=== PATIENT | male | born 1965 | race Caucasian/White ===

== ENCOUNTER 2019-01-15 09:11 | Outpatient (REF) | payer MEDICARE, MEDICAID, SELFPAY ==
[2019-01-15 11:59] LABS: HCT 39.3 % (40.0-50.0); HGB 13.5 g/dL (13.5-17.5); Mean Corp. HGB Concentration 34.4 g/dL (32.0-36.0); Mean Corpuscular Hemoglobin 30.5 pg (27.0-33.0); Mean Corpuscular Volume 88.7 fL (80-95); Mean Platelet Volume 9.2 fL (8.0-11.0); Platelet Count 484 x1000/uL (130-400); RBC 4.43 m/cumm (4.50-6.00); White Blood Cell Count 12.89 k/cumm (4.4-10.8)
[2019-01-15 12:36] LABS: ALT 36 U/L (12-78); AST 30 U/L (15-37); Albumin 3.5 g/dL (3.4-5.0); Alkaline Phosphatase 87 U/L (46-116); Anion Gap 12.8 mmol/L (3-11); BUN 7 mg/dL (7-18); Bilirubin, Total 0.3 mg/dL (0.2-1.0); CO2 24.2 mmol/L (21.0-32.0); CREATININE 0.87 mg/dL (0.70-1.30); Calcium 9.2 mg/dL (8.5-10.1); Chloride 102 mmol/L (98-107); Glucose 99 mg/dL (70-100); Potassium 4.3 mmol/L (3.5-5.1); Sodium 139 mmol/L (136-145); Total Protein 7.7 g/dL (6.4-8.2)
[2019-01-15 15:49] LABS: Calculated LDL 98; Cholesterol 151 mg/dL (50-200); GGT 27 U/L (15-85); HDL Cholesterol 39 mg/dL (40-60); Triglyceride 70 mg/dL (30-150)
== END 2019-01-15 09:31 ==
LOC: NCHCN 09:11
PROVIDERS: PCP Family Medicine; Visit Provider Family Medicine
DX: I10 Essential (primary) hypertension (principal); F17.200 Nicotine dependence, unspecified, uncomplicated; Z12.5 Encounter for screening for malignant neoplasm of prostate
CPT/HCPCS: 80053; 80061; 83721; 84153; 85027; 82977

== ENCOUNTER 2019-01-22 00:30 | Outpatient (CLI) | payer MEDICARE, MEDICAID, SELFPAY ==
--- NOTE | 2019-01-22 14:11 | DI.CT_ITS ---
SYMPTOMS/DIAGNOSIS: HEADACHES, R51, NEW ONSET AFTER TRAUMA HEAD CT: Images were performed before and after IV contrast. No intracranial hemorrhage, mass or infarct is seen. There are no abnormal enhancing lesions. The ventricles are normal in size. There is mild atrophy. There is mucus retention at the right maxillary sinus and mild mucus retention in the left maxillary sinus. The mastoid air cells appear clear. Orbits are unremarkable. IMPRESSION: Atrophy. No acute abnormality.
[2019-01-22] MEDS: Omnipaque 350 MG/ML 100 ML BTL IV (14:12)
== END 2019-01-22 00:50 ==
PROVIDERS: PCP Family Medicine; Visit Provider Family Medicine
DX: R51 Headache (principal); J32.8 Other chronic sinusitis
CPT/HCPCS: 70470; J3490

== ENCOUNTER 2019-09-10 11:00 | Outpatient (CLI) | payer MEDICARE, MEDICAID, SELFPAY ==
--- NOTE | 2019-09-10 11:15 | DI.RAD_ITS ---
EXAM: XR KNEE LT 3V AP,LAT,ELSIE INDICATION: f/u L knee OA. COMPARISON: No exams were available for comparison TECHNIQUE: 2D digital imaging was performed. FINDINGS: There are degenerative changes of the left knee characterized by marked narrowing of the medial femor al tibial joint space and mild to moderate narrowing of the lateral femoral tibial joint and the barrera llofemoral joint. There is periarticular spurring involving all 3 joint compartments. There is a sm all joint effusion. No acute fracture or dislocation is present. IMPRESSION: Osteoarthritis of the left knee.
== END 2019-09-10 11:20 ==
PROVIDERS: PCP Family Medicine; Referring Provider Family Medicine; Visit Provider Student in an Organized Health Care Education/Training Program
DX: M25.562 Pain in left knee (principal); M17.12 Unilateral primary osteoarthritis, left knee; M25.462 Effusion, left knee; F17.210 Nicotine dependence, cigarettes, uncomplicated
CPT/HCPCS: 20610; 73562; 99203; 99214; J1040

== ENCOUNTER 2020-06-05 10:04 | Outpatient (REF) | payer MEDICARE, MEDICAID, SELFPAY ==
[2020-06-05 21:19] LABS: HCT 43.5 % (40.0-50.0); HGB 14.8 g/dL (13.5-17.5); MCH 30.8 pg (27.0-33.0); MCV 90.6 fL (80-95); MPV 9.9 fL (8.0-11.0); Platelet Count 351 10^3/uL (130-400); RDW 14.3 % (11.8-14.1); RDW-SD 47.8 fL
[2020-06-05 21:41] LABS: ALT 25 U/L (16-63); AST 35 U/L (15-37); Albumin 3.9 g/dL (3.4-5.0); Alkaline Phosphatase 84 U/L (46-116); Anion Gap 12.4 mmol/L (3-11); BUN 8 mg/dL (7-18); Bilirubin, Total 0.4 mg/dL (0.2-1.0); CO2 23.6 mmol/L (21.0-32.0); CREATININE 0.76 mg/dL (0.70-1.30); Calcium 8.9 mg/dL (8.5-10.1); Calculated LDL 64 mg/dL (<100); Chloride 102 mmol/L (98-107); Cholesterol 146 mg/dL (<200); Glucose 125 mg/dL (74-106); HDL Cholesterol 74 mg/dL (40-60); Potassium 4.3 mmol/L (3.5-5.1); Sodium 138 mmol/L (136-145); Triglyceride 43 mg/dL (<150)
[2020-06-10 10:40] LABS: PSA, Screening 0.8 ng/mL (0-3.5)
== END 2020-06-05 10:24 ==
LOC: NCHCN 10:04
PROVIDERS: PCP Family Medicine; Visit Provider Family Medicine
DX: Z00.00 Encounter for general adult medical examination without abnormal findings (principal); I10 Essential (primary) hypertension; F10.10 Alcohol abuse, uncomplicated
CPT/HCPCS: 80053; 80061; 84153; 85027

== ENCOUNTER → 2021-01-16 10:40 | Outpatient (BNVA) | payer MEDICARE, MEDICAID, SELFPAY | PROVIDERS: PCP Family Medicine; Referring Provider Family Medicine; Visit Provider Student in an Organized Health Care Education/Training Program | DX: M17.12 Unilateral primary osteoarthritis, left knee (principal) | CPT/HCPCS: 20610; J1040 ==

== ENCOUNTER → 2021-07-06 08:00 | Outpatient (BNVA) | payer MEDICARE, MEDICAID, SELFPAY | PROVIDERS: PCP Family Medicine; Referring Provider Family Medicine; Visit Provider Student in an Organized Health Care Education/Training Program | DX: M17.12 Unilateral primary osteoarthritis, left knee (principal) | CPT/HCPCS: 99213 ==

== ENCOUNTER → 2021-09-09 07:57 | Outpatient (BNVA) | payer MEDICARE, MEDICAID, SELFPAY | PROVIDERS: PCP Family Medicine; Referring Provider Family Medicine | DX: M17.12 Unilateral primary osteoarthritis, left knee (principal) ==

== ENCOUNTER 2021-09-14 02:18 | Outpatient (CLI) | payer MEDICARE, MEDICAID, SELFPAY ==
[2021-09-14 11:50] LABS: Source Nasal/Nares
[2021-09-14 17:58] LABS: COVID-19 PCR Negative (Negative)
== END 2021-09-14 02:19 | disposition home or self-care (01) ==
LOC: LBO 02:18
PROVIDERS: PCP Family Medicine; Visit Provider Student in an Organized Health Care Education/Training Program
DX: Z20.822 Contact with and (suspected) exposure to COVID-19 (principal); Z01.818 Encounter for other preprocedural examination
CPT/HCPCS: 36415; 80048; 85027; 87635; U0005; 77073

== ENCOUNTER 2021-09-14 02:42 | Outpatient (CLI) | payer MEDICARE, MEDICAID, SELFPAY ==
[2021-09-14 08:34] LABS: HCT 44.6 % (40.0-50.0); HGB 15.2 g/dL (13.5-17.5); MCH 30.3 pg (27.0-33.0); MCHC 34.1 % (32.0-36.0); MCV 88.8 fL (80-95); MPV 8.3 fL (8.0-11.0); Platelet Count 381 10^3/uL (130-400); RBC 5.02 10^6/uL (4.36-5.78); RDW 12.6 % (11.8-14.1); RDW-SD 41.2 fL; WBC 10.49 10^3/uL (4.4-10.8)
[2021-09-14 09:58] LABS: Anion Gap 6.2 mmol/L (3-11); BUN 9 mg/dL (7-18); CO2 29.8 mmol/L (21.0-32.0); CREATININE 0.8 mg/dL (0.70-1.30); Calcium 9.1 mg/dL (8.5-10.1); Chloride 92 mmol/L (98-107); Glucose 132 mg/dL (74-106); Potassium 4.3 mmol/L (3.5-5.1); Sodium 128 mmol/L (136-145)
== END 2021-09-14 02:43 | disposition home or self-care (01) ==
LOC: LBO 02:43
PROVIDERS: PCP Family Medicine; Visit Provider Student in an Organized Health Care Education/Training Program
DX: M17.12 Unilateral primary osteoarthritis, left knee (principal); Z01.818 Encounter for other preprocedural examination
CPT/HCPCS: 36415; 80048; 85027

== ENCOUNTER 2021-09-14 08:44 | Outpatient (CLI) | payer MEDICARE, MEDICAID, SELFPAY ==
--- NOTE | 2021-09-14 15:45 | DI.RAD_ITS ---
Exam(s) XR STANDING ALIGNMENT EXAM: XR STANDING ALIGNMENT CLINICAL HISTORY: TKA PLANNING. TECHNIQUE: 2D digital imaging was performed. COMPARISON: CR RIGHT TIB/FIB from 09/25/2016 CR XR KNEE LT 3V AP,LAT,ELSIE from 09/10/2019 FINDINGS: There is advanced [id number] narrowing of the medial compartment of the left knee. Also mild media l subluxation of the femoral condyles relative to the tibial plateau by approximately 1 cm. Lesser d egenerative changes noted in the lateral compartment. In the opposite-right knee there is minimal na rrowing evident. Hips appear unremarkable as do the ankles although there appears to be hardware projected over the ri ght talus. In addition, there is a endovascular stent noted in the upper right calf. This is probab ly in the peroneal or origin of posterior tibial artery. IMPRESSION: Findings as above, most prominent being advanced narrowing of the medial compartment of the left knee DATA REPOSITORY: RADIATION DOSE DELIVERED:
== END 2021-09-14 08:45 | disposition home or self-care (01) ==
LOC: DIORS 08:45
PROVIDERS: PCP Family Medicine; Referring Provider Family Medicine; Visit Provider Physician Assistant
DX: M17.12 Unilateral primary osteoarthritis, left knee (principal)
CPT/HCPCS: 77073

== ENCOUNTER 2021-09-16 09:52 | Day surgery (SDC) | payer MEDICARE, MEDICAID, SELFPAY ==
[2021-09-16] VITALS (9 sets, daily range): BP systolic 119–148; BP diastolic 69–91; PULSE 59–79; RESP 10–18; TEMP 36.2–37.1; O2SAT 96–99; BMI 23.8
--- NOTE | 2021-09-16 08:09 | W.ANESPRE ---
General Info Date of Service Date Performed: 09/16/21 Height: 5 ft 3.5 in Weight: 62.142 kg Body Mass Index (BMI): 23.8 Surgical Procedure: Operation Date: 09/16/21 13:40 Proposed Procedure Side Surgeon p Knee Total Arthroplasty Cementless CR (potential PS) Left Jian Michael MD Meds Allergies and Home Medications Allergies Allergy/AdvReac Type Severity Reaction Status Date / Time codeine Allergy rash Unverified 09/16/21 10:02 Penicillins Allergy rash Unverified 09/16/21 10:02 Home Medication Medication Instructions Recorded ibuprofen 800 mg tablet 800 mg PO Q8H PRN PRN #30 tab 06/10/16 albuterol sulfate 90 mcg/actuation 2 puff INHALATION Q6H PRN 06/10/21 aerosol inhaler (Ventolin HFA) gabapentin 100 mg capsule 400 mg PO QID cap 06/10/21 lisinopril 20 1 tab PO DAILY 06/10/21 mg-hydrochlorothiazide 25 mg tablet oxycodone 10 mg tablet 10 mg PO QID PRN 06/10/21 Current Visit Medications: Current Medications Generic Name Dose Route Start Last Admin Trade Name Freq PRN Reason Stop Dose Admin Acetaminophen 1,000 mg 09/16/21 06:00 Acetaminophen 500 Mg Tab PO 09/16/21 16:00 PREOP CARLOS Celecoxib 400 mg 09/16/21 06:00 Celecoxib 200 Mg Cap PO 09/16/21 16:00 PREOP CARLOS Gabapentin 300 mg 09/16/21 06:00 Gabapentin 300 Mg Cap PO 09/16/21 16:00 PREOP CARLOS Tranexamic Acid 1,000 mg/ 60 mls @ 360 mls/hr 09/16/21 06:00 Sodium Chloride IVPB 09/16/21 16:00 PREOP CARLOS Tranexamic Acid 1,000 mg/ 60 mls @ 360 mls/hr 09/16/21 06:00 Sodium Chloride IVPB 09/16/21 16:00 DIRECTED CARLOS Ringer's Solution 1,000 mls @ 80 mls/hr 09/16/21 06:00 IV 10/15/21 23:59 INFUSION CARLOS Cefazolin Sodium/Dextrose 2 gm in 50 mls @ 100 mls/hr 09/16/21 06:00 Ancef Duplex IVPB 09/16/21 16:00 PREOP CARLSO IV Miscellaneous Supplies 1 each 09/16/21 06:00 Iv Access IV 10/15/21 23:59 DIRECTED CARLOS Sodium Chloride 0 ml 09/16/21 06:00 Normal Saline Flush 10 Ml Syr IV 10/15/21 23:59 PRN PRN Sodium Chloride 0 ml 09/16/21 06:00 Normal Saline 10 Ml Vial IJ 10/15/21 23:59 DIRECTED PRN Sterile Water 0 ml 09/16/21 06:00 Water,Injection,Sterile 10 Ml Vial IJ 10/15/21 23:59 DIRECTED PRN PFSH Active Problems Active Problems: Problem Status Onset Code Unilateral primary osteoarthritis, left knee M17.12 Aneurysm of lower extremity, right I72.4 Tobacco abuse Z72.0 Medical History Medical History HTN (hypertension) Surgical History Surgical History (Updated 09/16/21 @ 10:02 by July Motta) History of ankle surgery History of surgery Aneurysm removal from right leg History of surgery on right wrist Tobacco Smoking/Tobacco Use Status: Current every day Tobacco Type: cigarettes Alcohol Alcohol Intake: never Substance Use Substance use: Occasionally Substance use type: marijuana Vital Signs and Lab Results Vital Signs Most Recent Vital Signs in EMR: Temp Pulse Resp BP Pulse Ox 37 C 79 18 136/80 97 09/16/21 10:28 09/16/21 10:28 09/16/21 10:28 09/16/21 10:28 09/16/21 10:28 Lab Results Blood Type / Crossmatch: No Data to Display Complete Blood Count: White Blood Count 10.49 10^3/uL (4.4-10.8) 09/14/21 08:29 09/14/21 Red Blood Count 5.02 10^6/uL (4.36-5.78) 09/14/21 08:29 09/14/21 Hemoglobin 15.2 g/dL (13.5-17.5) 09/14/21 08:29 09/14/21 Hematocrit 44.6 % (40.0-50.0) 09/14/21 08:29 09/14/21 Platelet Count 381 10^3/uL (130-400) 09/14/21 08:29 09/14/21 Complete Metabolic Panel: Sodium Level 128 mmol/L (136-145) L 09/14/21 08:29 09/14/21 Potassium Level 4.3 mmol/L (3.5-5.1) 09/14/21 08:29 09/14/21 Chloride Level 92 mmol/L (98-107) L 09/14/21 08:29 09/14/21 Carbon Dioxide Level 29.8 mmol/L (21.0-32.0) 09/14/21 08:09/14/21 Blood Urea Nitrogen 9 mg/dL (7-18) 09/14/21 08:09/14/21 Creatinine 0.8 mg/dL (0.70-1.30) 09/14/21 08:09/14/21 Estimated GFR/1.73 m2 >= 60.00 (mL/min/1.73m2) 09/14/21 08:29 09/14/21 Calcium Level 9.1 mg/dL (8.5-10.1) 09/14/21 08:09/14/21 Glucose Level 132 mg/dL (74-106) H 09/14/21 08:29 09/14/21 Liver Function Panel: No Data to Display Coagulation Panel: No Data to Display Cardiac Panel: No Data to Display Arterial Blood Gas: No Data to Display Venous Blood Gas: No Data to Display Pancreas Panel: No Data to Display Thyroid Panel: No Data to Display Infectious Disease: Coronavirus (COVID-19)(PCR) Negative (Negative) 09/14/21 08:30 09/14/21 Coronavirus 2019 Source Nasal/Nares 09/14/21 08:30 09/14/21 Blood Cultures: No Data to Display Toxicology Panel: No Data to Display Anesthesia Assessment and Plan Anesthesia History Personal History: No History of Anesthesia Complications Family History: No Family History of Anesthesia Complications Exercise Tolerance Exercise Tolerance: Metabolic Equivalents>4 Cardiac & Pulmonary Exam Cardiac Exam: Normal S1/S2 Heart Sounds Pulmonary Exam: Clear Bilateral Breath Sounds Implantable Cardiac Device Does patient have a Pacemaker or an ICD?: No Airway Exam Known Difficult Airway: No Mallampati Class: 2 Mouth Opening: Normal (> 3cm) Thyromental Distance: Less than 3 cm Neck Range of Motion: Full ROM Neck Circumference: Normal Teeth Condition: Generalized Poor Dentition Airway Comments: many half missing and broken teeth. extremely poor dentition. ASA Classification ASA Score: ASA 2 Emergency Case?: No NPO Status NPO Status: NPO Clears >2 hours, Solids >8 hours Anesthesia Plan Resuscitation Status: Full Code Anesthesia Technique: Spinal Anesthesia Airway Planned: Natural Airway Pain Management: Surgeon and patient request nerve block Monitors Used: Standard Monitors Preoperative Comments:: 55 yo male for left TKA. Sig PMHx: HTN (lisinopril/HCTZ), smoker (everyday tobacco, occ cannabis), asthma (albuterol), s/p right leg pseudoaneurysm/AVM stent graft.
[2021-09-16] MEDS: Lactated Ringers 1,000 ML 80 ML IV (10:50)
[2021-09-16] MEDS: Gabapentin 300 MG CAP PO (10:55)
[2021-09-16] MEDS: Celecoxib 200 MG CAP 400 MG PO (10:56)
[2021-09-16] MEDS: Acetaminophen 500 MG TAB 1000 MG PO (10:56)
--- NOTE | 2021-09-16 11:27 | W.ANESNERVE ---
Nerve Block Single Injection Procedure Date and Time Date Performed: 09/16/21 Procedure Start: 11:15 Location Where Procedure Performed Procedure Location: Day Surgery Unit Reason Performed: Postoperative Analgesia Requesting Provider: Jian Michael Timeout Performed Timeout Performed: Yes Monitoring Used ECG, Blood Pressure and SpO2 Sterility Sterility: Hand Hygiene, Surgical Cap, Surgical Mask, Sterile Gloves and Chlorhexidine Sedation Given During Procedure Sedation Given (Indicate Dose Given): Versed IV Dose:: 2 mg Patient Mental Status Patient Mental Status: Awake Nerve Block 1st Nerve Block: Laterality: Left Block Type: Adductor Canal Needle / Catheter Used: 100mm SonoPlex II Local Anesthetic Bolus (Indicate Dose Given): Lidocaine used for local infiltration of skin, Injected in 3-5ml increments after negative blood aspiration and Bupivacaine 0.375% Dose:: 10 mL Additives (Indicate Dose Given): None Ultrasound: Sterile probe cover and gel used Ultrasound Image Saved?: Yes Nerve Stimulator: Not Used Paresthesia: None Procedure Tolerated: No Complications Procedure Outcome: Successful Performed By: Davie Villareal
[2021-09-16] MEDS: ceFAZolin 2 GM/50 ML BAG IVPB (12:30)
[2021-09-16] MEDS: Ketorolac 30 MG/ML VIAL (12:52)
[2021-09-16] MEDS: Bupivacaine 0.25% Pres-Free 30 ML VIAL (12:52)
[2021-09-16] MEDS: Normal Saline 20 ML VIAL (12:52)
--- NOTE | 2021-09-16 14:48 | W.ANESPOSTOP ---
Postoperative Evaluation Date, Time and Location Date Performed: 09/16/21 Time Performed: 14:48 Patient Location: PACU Vital Signs Most Recent Imported Vital Signs: Most Recent Vital Signs Temp Pulse Resp BP Pulse Ox 36.3 C L 59 L 10 L 141/79 H 99 09/16/21 14:43 09/16/21 14:43 09/16/21 14:43 09/16/21 14:43 09/16/21 14:43 Pain Score Most Recent Pain Score: Most Recent Pain Score Pain Level [Left Knee] 6 09/16/21 10:35 Pain Level 0 09/16/21 14:43 Assessment Mental Status: Awake (Alert & Oriented to Patient Baseline) Airway and Respiratory Function: Patent airway with normal (patient baseline) respiratory exam Cardiovascular Function: Hemodynamically Stable Hydration Status: Adequately Hydrated Nausea & Vomiting: No Nausea or Vomiting Pain: Pain is tolerable per patient Peripheral Nerve Block: Regional nerve block not resolved at time of post operative discharge
--- NOTE | 2021-09-16 16:08 | PT.INIE ---
Date of service: 09/16/21 Time of Service: 16:08 PT Notes Visit Reasons: LEFT TKA Physical Therapy Day Surgery Initial Evaluation Date: 10/14/2021 Referring Doctor: VINCE Huntley PT Orders: PT CONSULT: Status post Ortho surgery Precautions: WBAT on left LE with AD. Patient Profile/Admitting Diagnosis: Brett is a 55-year-old male with unilateral primary osteoarthritis of the left knee and is status post left total knee arthroplasty on postoperative day 0. PMHX: All Active Problems?(Updated 09/09/21 @ 08:53 by VINCE Huntley) Unilateral primary osteoarthritis, left knee (Acute) Aneurysm of lower extremity, right (Acute) Tobacco abuse (Acute) Medical History?(Updated 09/09/21 @ 08:53 by VINCE Huntley) HTN (hypertension) Surgical History? History of surgery Aneurysm removal from right leg Social History/Home Situation: Lives alone in a private home with one-step to enter without rails. Independent with all aspects of ADLs prior to surgery. Has a friend who lives close by who can help as needed. Equipment Owned/DME: [facility] Subjective: Agreeable to PT consult. Brett reports 5?6/10 pain in the left knee. Does report numbness in both feet. Denies headache, chest pain, and dizziness throughout session. States that his mom had machine is evaluating for him at home. Objective: General Observation: Supine in stretcher. TEDS on right leg. Derrick wraps to left LE. Cryo/Cuff on left knee. SPC on left LE. IV access in the right UE. Mental Status: Alert and oriented x4 Pain: 5?6/10 pain in the left knee ROM: Right Lower Extremity: Hip flexion WFL. Hip abduction WFL. Knee flexion WFL. Ankle dorsiflexion WFL. Ankle plantarflexion WFL. Left Lower Extremity: Hip flexion WFL. Hip abduction WFL. Knee flexion about 30 degrees to about 80 degrees. Knee extension -30 degrees ankle dorsiflexion WFL. Ankle plantarflexion WFL. Strength: Right Lower Extremity: Hip flexors 5/5. Hip abductors 5/5. Knee flexors 5/5. Knee extensors 5/5. Ankle dorsiflexors 5/5. Ankle plantarflexors 5/5. Left Lower Extremity:Hip flexors 5/5. Hip abductors 5/5. Knee flexors 3-/5. Knee extensors 3-/5. Ankle dorsiflexors 5/5. Ankle plantarflexors 5/5. Sensation: Complains of numbness in bilateral feet Bed Mobility/Transfers: Supine to sit standby assist Sit to stand standby assist Stand to sit standby assist Bed to chair contact-guard assist Gait: Instructed patient with level surface ambulation of about 150 feet using front wheeled walker with step through gait pattern with report of 5?6/10 pain on the left knee. Minimal cues given for limb advancement and foot placement as well as directional changes using walker. Patient was also instructed the use of bilateral axillary crutches for about 15 feet using three-point gait pattern. Balance: Static Sitting: Normal Dynamic Sitting: Normal Static Standing: Fair Dynamic Standing: Fair Special Tests: Mobility Limitations Standardized Measure [facility] AM-PAC 6 clicks Basic Mobility Inpatient Short Form: Raw Score: 21 CMS Score: 29% deficit Informed Consent Education: Patient instructed in purpose of PT consult. Education and training on initial set of exercises that can be done at home have been completed with patient. Assessment: Brett requires the use of bilateral axillary crutches for all mobility ADL performance in order to maximize independence and reduce fall risk. He will have assistance of a friend for anything that he needs as he recovers. Patient presents with clinical signs and symptoms consistent with current/admitting diagnoses that have resulted to mobility limitations, gait instability, generalized weakness, and impairment of motor control as demonstrated by the following impairment level findings: 1. Decreased strength to left knee major muscle groups 2. Impaired standing balance 3. Limitation of joint range of motion in left knee Impairments are contributing to the following functional limitations: 1. Inability to safely ambulate without assistive device 2. Increase completion time for mobility ADL performance 3. Increased fall risk Patient is assessed as a [id number] moderate complexity based on the following: History: 55-year-old malewith impairment level findings, functional limitations, and past medical history as indicated above Examination: Demonstrable impairment in strength, balance, and mobility level with underlying impairments and functional limitations as documented above Presentation: Evolving Decision Makin moderate complexity Goals: N/A. PT evaluation and 1-2 treatment sessions only for functional mobility training using recommended AD and for HEP instruction. Plan of Care/Treatment Plan: N/A. PT evaluation and 1-2 treatment session only for functional mobility training using recommended AD and for HEP instruction. DISCHARGE RECOMMENDATIONS: [] Home with no services [] [] Home with services [specify] [X] Home with outpatient PT. Home when medically cleared by orthopedic surgeon. Will benefit from outpatient PT services in order to facilitate return to independent community ambulation without an assistive device. [] SNF for continued rehabilitation [] [] [employer] [facility] [] [] SNF versus LTC based on ability to participate and progress [] TREATMENT CODE/TIME: 06351 x 20 minutes, 87265 x 17 minutes beginning at 16:08 PM. Thank you for the opportunity to participate in the care of this patient. Marifer Lindsay PT, DPT, CLT [facility] [place], [place]
[2021-09-16] MEDS: oxyCODONE 5 MG TAB 10 MG PO (16:18)
--- NOTE | 2021-09-16 19:29 | ROE_ITS ---
Date of service: 09/16/21 Time of Service: 14:05 Operative Note Operative Note DATE OF PROCEDURE: 09/16/21 PRE-OP DIAGNOSIS: Left Knee Osteoarthritis POST-OP DIAGNOSIS: same PROCEDURE: Left Cementless Total Knee Replacement SURGEON: Jian Michael DISTANCE LEARNING TECHNICIAN: Camden Gallardo Refer to Anesthesia Record ESTIMATED BLOOD LOSS: 200 PATHOLOGY: none sent TOURNIQUET TIME: 0 COMPLICATIONS: None Patient was transported to: PACU Patient's condition: stable Implants: 1. Depuy Attune Cementless Cruciate Retaining Femoral Component, Size 8 2. Depuy Attune Cementless Rotating Platform Tibial Component, Size 6 3. Depuy Attune 8x7mm CR/RP Poly 4. Depuy Attune Patellar Component, Size 38 Indications: I have seen Brett in clinic for symptoms of knee arthritis, confirmed with radiographic findings. Brett has exhausted nonoperative methods and was having significant limitations in daily function and desired better function and less pain. I discussed the technical details of a knee replacement. I explained the risks of the procedure to include, but not limited to, bleeding, infection, pain, stiffness, fracture, damage to nerves and vessels, damage to muscles and tendons, loosening, need for repeat procedure, blood clot and cardiopulmonary demise. Despite these risks, [NAME] elected to proceed. Findings: There was significant signs of arthritis throughout the knee with notable tibia varus. Procedure Description: Brett was greeted in the preoperative holding area where the correct side was identified and marked. The consent was reviewed with the patient and signed. The history and physical was updated. All questions were answered. Preoperative medications were administered: Acetaminophen 1000mg, Celebrex 400mg, and Gabapentin 300mg. An adductor canal block was then administered by the anesthesia team in the PACU. Brett was taken back to the operating room. A spinal anesthestic was then administered. The patient was placed into the supine position on the operating room table. A nonsterile tourniquet was placed high onto the leg but only used for cementing. Posts were placed for positioning during the procedure. All bony prominences were well padded. Prophylactic antibiotics in the form of Cefazolin were administered. 1g of Tranxemic Acid was given intravenously within 30 minutes of incision. The left leg was then prepped with Chloraprep and draped in a standard fashion with impervious stockinette. A second prep with Chloraprep was performed prior to application of Iodine impregnated skin protection. A timeout to confirm correct identity, side and site, procedure, allergies, anesthesia, and medical concerns was performed. With the knee in some flexion, a midline incision was made overlying the knee. Full thickness skin flaps were raised once the extensor mechanism was encountered. These were raised medially and laterally. Any bleeding was controlled with electrocautery. Once the extensor mechanism was fully exposed, a medial parapatellar arthrotomy was performed in a flexed position. All bleeding from the arthrotomy and the geniculate arteries was coagulated. A medial subperiosteal peel was performed with electrocautery to the midcoronal plane. Due to the significant varus deformity the entire medial tibial plateau was exposed. The fat pad was removed while keeping the patellar tendon protected. The anterior distal femur synovium was removed for later visualization. The ACL and PCL were resected and the anterior horn of the lateral meniscus was transected. The knee was then flexed with the patella everted. Large osteophytes from the tibia were removed. Large osteophytes from the femur were removed. Using a step drill, and based on preoperative templating, the femoral canal was entered. This was done with a step drill without any difficulty. The intramedullary distal femoral cut guide was inserted, set to a 5 degree valgus cut and 9mm cut thickness. The distal femoral cut guide was then held in position and pinned. With the soft tissues protected, the distal cut was performed. This was passed over a few times to ensure a planar cut. I then turned attention to the tibia. The extramedullary guide was placed onto the leg. The distal aspect was slid medial to adjust for position of center of ankle and stay in line with shaft of the tibia. Approximately 3-5 degrees of posterior slope was kept in the proximal cutting guide. The center of the guide was aligned with the PCL. The stylus was used to assess cut thickness. The medial side, most involved side, was set for a 2mm cut. This was then held in position and pinned into place with 2 additional pins and a cross pin for stability. The medial and lateral collateral ligaments were protected and the cut was performed. With this completed, it was assessed and noted to be of appropriate dimensions. The guide was removed. A spacer block was inserted and the knee was brought into extension. The 6mm spacer block provided full extension, without hyperextension and with stability of both the medial and lateral collateral ligaments was assessed. The pins from the femur and the tibia were then removed. The distal femur was then sized. The anterior stylus was placed onto the lateral ridge of the anterior femur. This indicated a size 8 femur. The external rotation of the guide was adjusted to 3 degrees to match the epicondylar axis, perpendicular to Debora?s line. The 4-in-1 cutting guide was the placed. The posterior medial femur cut was evaluated and appeared of good thickness. The spacer block was inserted underneath the cutting guide and stability was confirmed in 90 degrees of flexion. An cristina wing was used to confirm appropriate position of the anterior cut to avoid notching. This cutting guide was ensured to be flush on the cut surface and then pinned into place with headed pins. While protecting the soft tissues, quad tendon, and collateral ligaments, the anterior and posterior cuts were performed with a saw. The central two pins were removed and the posterior and anterior chamfers were cut next. The notch-cutting guide was placed. This was pinned to lateralize the femoral component as much as possible while keeping it flush on the cut surface. This was then pinned into position. A reciprocating saw was used to make the notch cut. A rasp smoothed the cut surfaces. The medial and lateral menisci were removed. A trial femoral component was then inserted, impacted down to the cut surfaces, and the lug holes were drilled. A provisional trial tibial component was placed and the knee was brought through range of motion. The polyethylene was trialed until there was good flexion and extension with excellent stability to the medial and lateral collaterals. The patella was tracking without thumbs. A size 7mm polyethylene component provided the best range of motion and stability with less than 2mm gapping with medial and lateral stress and full extension without significant hyperextension. The tibial cut surface was fully exposed. The tibia was then sized as a 6. The tibia had been previously marked during trialing to correspond to the center of the tibial component to help with rotation. The trial was aligned to this camden, approximately rotated to the medial 1/3rd of the tibial tubercle. The trial was pinned into place. The tibia was prepared with a reamer and a keel punch and lug holes. The knee was then brought into extension and the patella was measured as 25mm. Using the patellar clamp and cut guide, this was resected to a flat surface with at least 13mm of thickness remaining. The size 38 patella fit the best. This was oriented and then clamped into position. The lugs were drilled. The trial components were removed. The final components were opened on the back table. The periosteal and capsular tissues, especially posteriorly, around the knee were then systematically injected with a periarticular cocktail consisting of 50cc 0.25% Marcaine, 30mg Ketorolac, 20cc of Exparal and 50cc of injectable saline. The knee was thoroughly irrigated with a pulse lavage and dried. Irrisept was also used to irrigate the tissues. On the back table, with the implants opened, the cement was mixed. One batch of high viscosity cement was prepared with vacuum assistance. After the cement was ready a small amount was placed on the cut surface of the patella and the patellar button was clamped into position and held. While the cement was hardening, the cementless knee components were placed. Starting with the tibial component, the tibia was subluxed anteriorly and the lug holes of the component were lined up. The tibia was then impacted with an impactor and mallet until the tibial component was in contact with the tibia. The final polyethylene component was inserted. Then, the femoral component was inserted. The lug holes were aligned and the component was impacted into position. The knee was irrigated with Irrisept chlorhexadine solution. This was allowed to sit in the knee for 3 minutes. After the cement had finally cured, approximately 15min, the clamp was removed from the patella and the knee was taken through range of motion. The patella was tracking with a no-thumbs technique. The capsule was then reapproximated with a No. 1 Vicryl at multiple locations. The capsule was finally closed with a No. 2 Stratafix, barbed suture. The second dosing of 1g TXA was started. Deep tissues were then reapproximated with 0 Vicryl and 2-0 Vicryl. The skin was closed with a running 3-0 Monocryl in a subcuticular fashion. This was reinforced with skin glue. A Mepilex silver dressing was applied along with a zjmt-bm-vszom TOMMIE wrap. A CryoCuff was applied. Brett was transferred to the hospital bed without difficulty an suffering no apparent complication. Brett has a good prognosis. Physical therapy will start today and without restrictions, weight-bearing as tolerated. Aspirin 81mg BID will be used for DVT prophylaxis.
== END 2021-09-16 17:35 | disposition home or self-care (01) ==
PROVIDERS: PCP Family Medicine; Visit Provider Student in an Organized Health Care Education/Training Program
PROC: (CPT 27447; principal; 2021-09-16 13:30)
DX: M17.12 Unilateral primary osteoarthritis, left knee (principal); I10 Essential (primary) hypertension; Z72.0 Tobacco use
CPT/HCPCS: 27447; C1776; 76942; 97162; 97530; J0690; J1100; J1885; J2001; J2250; J2405; J2704

== ENCOUNTER 2021-10-02 08:35 | Outpatient (CLI) | payer MEDICARE, MEDICAID, SELFPAY ==
--- NOTE | 2021-10-02 08:15 | DI.RAD_ITS ---
Exam(s) XR STANDING ALIGNMENT EXAM: XR STANDING ALIGNMENT CLINICAL HISTORY: 1ST POST OP L TKA. TECHNIQUE: 2D digital imaging was performed. COMPARISON: CR XR STANDING ALIGNMENT from 09/14/2021 FINDINGS: There has been interval placement of a left knee prosthesis which appears to be in satisfactory posit ion with no obvious loosening. There is minimal narrowing of the medial compartment of the opposite-right knee. No osteophytes evid ent. No narrowing of the hip joints although I note that both the left hip and knee joint spaces are higher than on the opposite-right side. The level of the ankles there is hardware evident in the region of the talus or calcaneus. Incidentally noted is a endovascular stent in the upper right calf. This is probably in the peroneal artery or origin of the posterior tibial artery. IMPRESSION: DATA REPOSITORY: RADIATION DOSE DELIVERED:
--- NOTE | 2021-10-02 08:15 | DI.RAD_ITS ---
Exam(s) XR KNEE LT 1V EXAM: XR KNEE LT 1V CLINICAL HISTORY: 1st post op L TKA. TECHNIQUE: 2D digital imaging was performed. COMPARISON: CR XR KNEE LT 3V AP,LAT,ELSIE from 09/10/2019 CR XR STANDING ALIGNMENT from 10/02/2021 FINDINGS: Lateral weight-bearing view of the left knee, interpreted in conjunction with the bilateral leg study . Again noted is a recently placed arthroplasty. Appears to be in satisfactory position alignment. No fracture or loosening evident. There has been patellar resurfacing. IMPRESSION: DATA REPOSITORY: RADIATION DOSE DELIVERED:
== END 2021-10-02 08:36 | disposition home or self-care (01) ==
LOC: DIORS 08:36
PROVIDERS: PCP Family Medicine; Visit Provider Student in an Organized Health Care Education/Training Program
DX: Z96.652 Presence of left artificial knee joint (principal); Z47.1 Aftercare following joint replacement surgery
CPT/HCPCS: 73560; 77073

== ENCOUNTER → 2021-10-30 09:16 | Outpatient (BNVA) | payer MEDICARE, MEDICAID, SELFPAY | PROVIDERS: PCP Family Medicine; Referring Provider Family Medicine; Visit Provider Student in an Organized Health Care Education/Training Program | DX: Z96.652 Presence of left artificial knee joint (principal) ==

== ENCOUNTER → 2021-12-29 00:36 | Outpatient (CLI) | payer MEDICARE, MEDICAID, SELFPAY ==
--- NOTE | 2021-12-29 08:30 | DI.CTLCSR_ITS ---
Exam(s) CT CHEST LUNG CANCER SCREEN EXAM: CT CHEST LUNG CANCER SCREEN CLINICAL HISTORY: SCREENING, CIGARETTE SMOKER, F17.210 TECHNIQUE: Imaging Protocol: Axial computed tomography images with coronal and sagittal reformatted images were created and reviewed COMPARISON: CT CHEST - LUNG CANCER SCREENING from 12/26/2017 FINDINGS: Tracheobronchial tree: Patent where visualized. Mediastinum and Caroline: No dominant adenopathy or fluid collection. Pulmonary parenchyma: No consolidation or dominant measurable mass. Mild centrilobular emphysematous changes. Previously noted ground-glass opacities no longer present. Minimal scarring inferior lingu la and right middle lobe.. Lung Nodules: A few tiny bilateral scattered peripheral nodules are noted, largest posterior left stone g base measuring 3 millimeters. Pleura: No effusion or pneumothorax. Heart: The heart is not dilated. Mild coronary artery calcifications are seen. Aorta: Thoracic aorta non-dilated. Upper abdomen: Unremarkable. Bones: Mild degenerative disc changes. Soft Tissues: Mild bilateral gynecomastia. IMPRESSION: No suspicious pulmonary nodules. Mild emphysematous changes. Category Lung RADS Cat 2 - Benign Appearance / Behavior: Nodules with a very low likelihood of becomi ng a clinically active cancer due to size or lack of growth Lung-RADS 1.0 CATEGORIES: Category 0 - Prior chest CT exam(s) being located for comparison. Category 1 - Annual screening in 12 months. No nodules or definitely benign nodules. Category 2 - Annual screening in 12 months. Benign appearance. Nodules with low likelihood of becomin g active cancer. Category 3 - 6-month follow-up. Probably benign. Short-term follow-up suggested. Nodules with low lik elihood of becoming active cancer. Category 4A - 3-month follow-up and CT/PET if >8 mm in size. Suspicious finding. Findings which requi re additional testing. Category 4B - Findings which require additional testing and tissue sampling. Category 4X - Category 3 or 4 nodules with additional features or imaging findings that increases the suspicion of malignancy. Modifier S- Potentially clinically significant findings (non lung cancer) RADIATION DOSE DELIVERED: 79.28mGy.cm Total DLP 1.84mGy CTDIvol DATA REPOSITORY: All CT scans at this facility are submitted to the National Radiology Data Registry (NRDR) Dose Index Registry (DIR) with the [employer] (ACR). RADIATION OPTIMIZATION: All CT scans at this facility use at least one of these dose optimization te chniques: automated exposure control; mA and/or kV adjustment per patient size (includes targeted exa ms where dose is matched to clinical indication); or iterative reconstruction.
== END ==
PROVIDERS: PCP Family Medicine; Visit Provider Family Medicine
DX: Z12.2 Encounter for screening for malignant neoplasm of respiratory organs (principal); F17.210 Nicotine dependence, cigarettes, uncomplicated; J43.2 Centrilobular emphysema; R91.8 Other nonspecific abnormal finding of lung field
CPT/HCPCS: 71271

== ENCOUNTER 2022-10-29 11:20 | Outpatient (CLI) | payer MEDICARE, MEDICAID, SELFPAY ==
--- NOTE | 2022-10-29 11:00 | DI.RAD_ITS ---
Exam(s) XR KNEE LT 3V AP,LAT,ELSIE EXAM: XR KNEE LT 3V AP,LAT,ELSIE CLINICAL HISTORY: eval L knee pain, s/p TKA. TECHNIQUE: 2D digital imaging was performed of the left knee. Three images were obtained. Merchant ,AP and lateral views were obtained. COMPARISON: CR XR KNEE LT 3V AP,LAT,ELSIE from 09/10/2019 CR XR KNEE LT 1V from 10/02/2021 CR XR STANDING ALIGNMENT from 10/02/2021 FINDINGS: BONES: No acute fracture is present. No bony destructive lesion is seen. JOINTS: There is stable postsurgical changes of a left total knee replacement. No evidence of hardwa re failure is seen. No joint effusion is seen. SOFT TISSUE: Normal. IMPRESSION: Stable left TKA. DATA REPOSITORY: RADIATION DOSE DELIVERED:
== END 2022-10-29 11:21 | disposition home or self-care (01) ==
LOC: DIORS 11:21
PROVIDERS: PCP Family Medicine; Referring Provider Family Medicine; Visit Provider Student in an Organized Health Care Education/Training Program
DX: Z96.652 Presence of left artificial knee joint (principal); M25.661 Stiffness of right knee, not elsewhere classified; Z47.1 Aftercare following joint replacement surgery
CPT/HCPCS: 73562; 99213

== ENCOUNTER → 2023-01-21 10:48 | Outpatient (BNVA) | payer MEDICARE, MEDICAID, SELFPAY | PROVIDERS: PCP Family Medicine; Referring Provider Family Medicine; Visit Provider Student in an Organized Health Care Education/Training Program | DX: Z47.1 Aftercare following joint replacement surgery (principal); M25.511 Pain in right shoulder; Z96.652 Presence of left artificial knee joint | CPT/HCPCS: 99213 ==

== ENCOUNTER 2023-03-21 10:27 | Outpatient (CLI) | payer MEDICARE, MEDICAID, SELFPAY ==
--- NOTE | 2023-03-21 10:15 | DI.RAD_ITS ---
Exam(s) XR SHOULDER LT COMPLETE 2+V EXAM: XR SHOULDER LT COMPLETE 2+V CLINICAL HISTORY: LEFT SHOULDER PAIN. TECHNIQUE: 2D digital imaging was performed of the left shoulder. Three images were obtained. AP, Grashey, Y-view and axillary views were obtained. COMPARISON: No exams were available for comparison FINDINGS: BONES: No acute fracture is present. No bony destructive lesion is seen. JOINTS: No dislocation present. There are degenerative changes seen at the acromioclavicular joint an d the glenohumeral joint. SOFT TISSUE: Normal. IMPRESSION: Mild degenerative changes of the shoulder. DATA REPOSITORY: RADIATION DOSE DELIVERED:
--- NOTE | 2023-03-21 10:15 | DI.RAD_ITS ---
Exam(s) XR SHOULDER RT COMPLETE 2+V EXAM: XR SHOULDER RT COMPLETE 2+V CLINICAL HISTORY: RIGHT SHOULDER PAIN. TECHNIQUE: 2D digital imaging was performed of the right shoulder. Three images were obtained. AP, Grashey, Y-view and axillary views were obtained. COMPARISON: CR RIGHT SHOULDER COMPLETE from 12/01/2011 FINDINGS: BONES: No acute fracture is present. No bony destructive lesion is seen. JOINTS: No dislocation present. Degenerative changes are seen at the glenohumeral joint. The acromio clavicular joint is well maintained. SOFT TISSUE: Normal. IMPRESSION: Degenerative changes at the glenohumeral joint. DATA REPOSITORY: RADIATION DOSE DELIVERED:
== END 2023-03-21 10:28 | disposition home or self-care (01) ==
LOC: DIORS 10:27
PROVIDERS: PCP Family Medicine; Referring Provider Family Medicine; Visit Provider Student in an Organized Health Care Education/Training Program
DX: M19.011 Primary osteoarthritis, right shoulder; M19.012 Primary osteoarthritis, left shoulder; M75.21 Bicipital tendinitis, right shoulder; M75.22 Bicipital tendinitis, left shoulder
CPT/HCPCS: 99213; 73030

== ENCOUNTER → 2023-04-07 13:14 | Outpatient (BNVA) | payer MEDICARE, MEDICAID, SELFPAY | PROVIDERS: PCP Family Medicine; Referring Provider Family Medicine; Visit Provider Student in an Organized Health Care Education/Training Program | DX: M19.011 Primary osteoarthritis, right shoulder (principal) | CPT/HCPCS: 20611; J1040 ==

== ENCOUNTER 2023-05-16 03:30 | Outpatient (CLI) | payer MEDICARE, MEDICAID, SELFPAY ==
[2023-05-16 08:28] LABS: ALT 57 U/L (16-63); AST 59 U/L (15-37); Albumin 3.8 g/dL (3.4-5.0); Alkaline Phosphatase 105 U/L (46-116); Anion Gap 10.5 mmol/L (3-11); BUN 7 mg/dL (7-18); Bilirubin, Total 0.4 mg/dL (0.2-1.0); CO2 25.5 mmol/L (21.0-32.0); CREATININE 0.8 mg/dL (0.70-1.30); Calcium 9.1 mg/dL (8.5-10.1); Calculated LDL 73 mg/dL (<100); Chloride 98 mmol/L (98-107); Cholesterol 160 mg/dL (<200); Estimated GFR 102.58 (mL/min/1.73m2); Glucose 138 mg/dL (74-106); HDL Cholesterol 77 mg/dL (40-60); Potassium 3.9 mmol/L (3.5-5.1); Sodium 134 mmol/L (136-145); Total Protein 8.1 g/dL (6.4-8.2); Triglyceride 53 mg/dL (<150)
[2023-05-16 09:01] LABS: Vitamin D 25 Total 9.6 ng/mL (30-100)
[2023-05-25 16:01] LABS: Testosterone, Free 11.7 ng/dL (3.87-14.7); Testosterone, Total 729 ng/dL (240-950)
== END 2023-05-16 03:31 | disposition home or self-care (01) ==
PROVIDERS: PCP Family Medicine; Visit Provider Family Medicine
DX: Z00.00 Encounter for general adult medical examination without abnormal findings (principal); E55.9 Vitamin D deficiency, unspecified; I10 Essential (primary) hypertension
CPT/HCPCS: 36415; 80053; 80061; 82306; 84402; 84403

== ENCOUNTER → 2023-07-07 12:58 | Outpatient (BNVA) | payer MEDICARE, MEDICAID, SELFPAY | PROVIDERS: PCP Family Medicine; Referring Provider Family Medicine; Visit Provider Student in an Organized Health Care Education/Training Program | DX: M75.21 Bicipital tendinitis, right shoulder (principal); M75.22 Bicipital tendinitis, left shoulder; M19.011 Primary osteoarthritis, right shoulder; M19.012 Primary osteoarthritis, left shoulder | CPT/HCPCS: 20611; J1040 ==

== ENCOUNTER 2024-03-07 01:20 | Outpatient (CLI) | payer MEDICARE, MEDICAID, SELFPAY ==
--- NOTE | 2024-03-07 | DI.CT_ITS ---
Exam(s) CT CHEST WO EXAM: CT CHEST WO CLINICAL HISTORY: R05.3 Chronic Cough. TECHNIQUE: Imaging protocol: Axial computed tomography images were obtained and coronal and sagittal reformatted images were created and reviewed. COMPARISON: CT CT CHEST LUNG CANCER SCREEN from 12/29/2021 FINDINGS: Tracheobronchial tree: Patent where visualized. No bronchiectasis is present. Pulmonary parenchyma: Wobs-he-nevmnbpa centrilobular emphysematous changes are present. There is a t ree in bud infiltrate seen in the lower lobes bilaterally. No focal consolidating infiltrates are pr esent. No new pulmonary nodules are seen. Mediastinum and Caroline: No dominant adenopathy or fluid collection. The esophagus is unremarkable. Thyroid gland: Unremarkable. Pleura: No effusion or pneumothorax. Heart: The heart is not dilated. Coronary artery calcifications are present. No pericardial effusion . Aorta: Thoracic aorta non-dilated. Atherosclerotic calcification is present. Upper abdomen: Note is made of nephrocalcinosis. Lymph nodes: Within normal limits. Soft tissues: Bilateral gynecomastia. Bones:Within normal limits for the patient's age. IMPRESSION: 1. Tree in bud infiltrate seen in the lung bases. This can be seen with an infectious or inflammator y process, bronchiolitis, small airways disease. Please correlate clinically. 2. Ytva-fc-bjlopnah centrilobular emphysema. RADIATION DOSE DELIVERED: Total DLP Total DLP DATA REPOSITORY: All CT scans at this facility are submitted to the National Radiology Data Registry (NRDR) Dose Index Registry (DIR) with the [employer] (ACR). RADIATION OPTIMIZATION: All CT scans at this facility use at least one of these dose optimization te chniques: automated exposure control; mA and/or kV adjustment per patient size (includes targeted exa ms where dose is matched to clinical indication); or iterative reconstruction.
--- OUTSIDE RECORDS SUMMARY | 2024-03-07 01:24 | XMS_ITS | Referral Summary ---
Author Organization [facility] Address [address] [place] [address] Care Team Providers Care Mid Level Project Manager Name Role Phone Unknown, Provider Primary Care Provider [phone] Social History Tobacco Use Types Packs/Day Years Used Date Smoking Tobacco: Never Assessed Sex and Gender Information Value Date Recorded Sex Assigned at Not on file Gender Identity Not on file Sexual Orientation Not on file Plan of Treatment Not on file Care Teams Mid Level Project Manager Relationship Specialty Start Date End Date Unknown, Provider, PCP - General 06/03/15
--- OUTSIDE RECORDS SUMMARY | 2024-03-07 01:24 | XMS_ITS | Clinical Summary ---
Author Organization [facility] [place] [address] Care Team Providers Care Publishing Specialist Name Role Phone Faye Echavarria MD Primary Care Provider [phone] Allergies Active Allergy Reactions Criticality Noted Date Comments Bupropion 07/04/2012 Nightmares Codeine Phosphate Hives Medium Penicillins Medium GI Upset Clopidogrel Itching,Rash 01/02/2017 Medications Medication Sig Dispensed Refills Start Date End Date Status gabapentin (NEURONTIN) 100 mg Capsule Take 300 mg by mouth 3 times daily. 0 12/17/2016 Active aspirin 325 mg Tablet, Delayed Release (E.C.) Take 325 mg by mouth daily. 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 Right sural neuritis 07/04/2012 Social History Tobacco Use Types Packs/Day Years Used Date Smoking Tobacco: Every Day Cigarettes 1.5 25 Smokeless Tobacco: Never Tobacco Cessation:Ready to Q uit: No; Counseling Given: No Comments:avs information given Alcohol Use Standard Drinks/Week Comments Yes 0 (1 standard drink = 0.6 oz pur e alcohol) occasionally Sex and Gender Information Value Date Recorded Sex Assigned at Not on file Gender Identity Not on file Sexual Orientation Not on file Last Filed Vital Signs Vital Sign Reading Time Taken Comments Blood Pressure 117/74 03/29/2017 12:06 PM EDT Pulse 82 03/29/2017 12:06 PM EDT Temperature 36.9 ??C (98.5 ??F) 12/31/2016 11:57 AM E DT Respiratory Rate 18 02/08/2017 1:17 PM EDT Oxygen Saturation 95% 03/29/2017 12:06 PM EDT Inhaled Oxygen Concentration - - Weight 65.8 kg (145 lb) 03/29/2017 11:39 AM EDT Height 162.6 cm (5' 4) 03/29/2017 11:39 AM EDT Body Mass Index 24.89 03/29/2017 11:39 AM EDT Plan of Treatment Health Maintenance Due Date Last Done Comments CT Colonography 1964 Colonoscopy 1964 Colorectal Cancer Screening 1964 FIT DNA 1964 FIT 1964 Sigmoidoscopy (10 year) with FIT yearly 1964 Sigmoidoscopy 1964 HIV screen 1982 Hepatitis C Screening 1982 Lipid Screening 1982 Hepatitis B vaccine (0-59 yrs) (1) 10/01/1983 Tdap adult 10/01/1983 Tetanus vaccine 10/01/1983 Zoster vaccine (1 of 2) 2014 Advance Directive 10/01/2019 Covid-19 Vaccine (1 - 2022-24 season) 2023 Influenza (Flu) vaccine (1 o f 1 - Influenza standard series) 03/25/2024 Medical Devices Implanted Type Area Superintendent Storage Area Device Identifier Shelf Expiration Date Model / Serial / Lot Coil,Intrlc,2d ,Hlc,[id number] Implanted:Qty: 1 on 12/31/2016 by Brock Arellano MD IMPLANTS Right: Vein DO NOT USE [employer] - [id number] Description:right lower extr emity tibeial perineal trunk pseudoanue Stent,Endp,Hep ,7,6mmx2.5,120 ([id number]) (Autoreq)-2016 Implanted:Qty: 1 on 12/31/2016 by Brock Arellano MD IMPLANTS Arterial DO NOT USE [employer] - [id number] / / [id number] Description:right popliteal Advance Directives * Full Code (Latest Code Status on File) Date Activated Date Inactivated Comments 12/31/2016 9:09 AM 01/01/2017 4:34 AM Question Answer Comments Does patient have capacity to make decision: Yes Care Teams Publishing Specialist Relationship Specialty Start Date End Date Faye Echavarria MD [address] [place] [id number] PCP - General Family Medicine 12/22/16
--- OUTSIDE RECORDS SUMMARY | 2024-03-07 01:24 | XMS_ITS | Encounter Summary ---
Author Organization [facility] Address [facility] [place] [address] Care Team Providers Care Rod Tape Operator Name Role Phone Faye Echavarria MD Primary Care Provider [phone] Reason for Visit * Reason Comments Follow-up pt here for contiinu ed r leg pain patient states knee to foot pain burning numbness worse when ambulating Encounter Details Date Type Department Care Team (Latest Contact Info) Description 02/08/2017 1:00 PM EDT Office [place] [id number] Brock Arellano MD [facility] [place] [address] Arteriovenous fistula, right lower extremity; Pseudoaneurysm, right lower extremity Social History Tobacco Use Types Packs/Day Years Used Date Smoking Tobacco: Every Day Cigarettes 1.5 25 Smokeless Tobacco: Never Comments:avs information giv en Alcohol Use Standard Drinks/Week Comments Yes 0 (1 standard drink = 0.6 oz pur e alcohol) occasionally Sex and Gender Information Value Date Recorded Sex Assigned at Not on file Gender Identity Not on file Sexual Orientation Not on file documented as of this encounter Last Filed Vital Signs Vital Sign Reading Time Taken Comments Blood Pressure 145/74 02/08/2017 1:17 PM EDT Pulse 84 02/08/2017 1:17 PM EDT Temperature - - Respiratory Rate 18 02/08/2017 1:17 PM EDT Oxygen Saturation - - Inhaled Oxygen Concentration - - Weight 65.8 kg (145 lb) 02/08/2017 1:17 PM EDT Height 162.6 cm (5' 4) 02/08/2017 1:17 PM EDT Body Mass Index 24.89 02/08/2017 1:17 PM EDT documented in this encounter Patient Instructions * Patient Instructions* Brock Arellano MD - 02/08/2017 1:00 PM EDT We will schedule a return visit with imaging (ultrasound and DOROTHY) in 6 months and send a letter forthe appointment. Continue follow up with your PCP, Faye Echavarria MD, for regular medical care and risk factor management. Call if any questions. documented in this encounter Progress Notes * Brock Arellano MD - 02/08/2017 1:00 PM EDT Taurus Meraz returns to the vascular clinic in follow up of Right LE pseudoaneurysm and AV fistula as per my prior notes. He underwent a successful R tibial-peroneal trunk stent-graft 12/31/2016, with both of the anomalies excluded. Since then, he has noted the veins in his RLE are no longer dilated, but he still gets burning discomfort in his RLE. On exam, the veins in the RLE are no longer prominent. The R DP and PT pulses are palpable and the foot is warm and pink. Duplex today shows the pseudoaneurysm is excluded. Thrombosed pseudoaneurysm at the proximal calf measuring approximately 1.2 cm x 1.5 cm x 2.3 cm; previously 3.6 cm x 2.9 cm x 2.8 cm. The previouslyidentified arteriovenous fistula was not identified on today's exam, consistent with the exclusion/elimination of the fistula seen on angiography at the time of the stent-graft placement. Ankle-brachial indices are completely normal. A/P: Taurus Meraz is a 51 y.o. with a successful exclusion of his RLE pseudoaneurysm and AV fistula by angiography and Duplex, and the pseudoaneurysm is already much smaller. His RLE perfusion iscompletely normal by exam and ABIs. His residual burning discomfort is either related to the original trauma or perhaps a disc issue/sciatica may be the cause. It was considered in the past, and can now be investigated more completely as we have treated any potential vascular cause. He understands and will follow up on that with his PCP. We will see him again in vascular clinic in 6 months with ABIs and popliteal Duplex. Brock Arellano MD Vascular Surgery documented in this encounter Plan of Treatment Not on file documented as of this encounter Visit Diagnoses Diagnosis Arteriovenous fistula, right lower extremity Arteriovenous fistula, acquired Pseudoaneurysm, right lower extremity Aneurysm of unspecified site documented in this encounter Care Teams Rod Tape Operator Relationship Specialty Start Date End Date Faye Echavarria MD [address] [place] [id number] PCP - General Family Medicine 12/22/16 documented as of this encounter
--- OUTSIDE RECORDS SUMMARY | 2024-03-07 01:24 | XMS_ITS | Encounter Summary ---
Author Organization [facility] [place] [address] Care Team Providers Care Insulation Sprayer Name Role Phone Faye Echavarria MD Primary Care Provider [phone] Reason for Referral * Consultation (Routine) - Closed Specialty Diagnoses / Procedures Referred By Contgamaliel t Referred To Contact Pain Management Diagnoses Chronic right-sided low back pain with right-sided sciatica Dawood Reed PA [facility] [place] [address] [facility] [address] [place] [address] Referral ID Status Reason Start Date Expiration Date V isits Requested Visits Authorized [id number] Closed Assume Subset of Care 03/22/2017 03/22/2018 1 1 Reason for Visit * Reason Comments Back Pain Encounter Details Date Type Department Care Team (Late st Contact Info) Description 03/22/2017 11:00 AM EDT Office [place] [address] Dawood Reed PA [facility] [place] [address] Chronic right-sided low back pain with right-sided sciatica Social History Tobacco Use Types Packs/Day Years [...] on file documented as of this encounter Progress Notes * Dawood Reed PA - 03/22/2017 11:00 AM EDT Subjective: Taurus Meraz is a 51-year-old gentleman seen today for follow-up to review his lumbar spine MRI for continued symptoms of back pain and right leg pain, with question of neurological versus vascular involvement, given her limited response of his right leg pain following revascularization surgery about 1-2 months ago. Objective: MRI of the lumbar spine performed earlier today was reviewed with him. At L3-L4, there is noted left paracentral disc herniation and extruded disc fragment that appears to impinge and the traversing left L4 nerve root, and otherwise there is no significant right-sided foraminal stenosis or central canal narrowing at the L3-L4 level. At L4-L5, there is noted bilateral lateral recess stenosis, with left worse than right foraminal stenosis secondary to facet degeneration, and protrudingdisc material. Central canal narrowing is quite mild at this level. At L5-S1, there is similar pattern of left sided broad-based disc bulge, with resulting severe left and moderate left lateral recess stenosis, but there is otherwise no more than mild to moderate right foraminal narrowing, without much central canal stenosis. No right-sided traversing nerve root impingement observed. Assessment/plan: Taurus Meraz is a 51-year-old gentleman seen today for chief complaint of continued back and right lower extremity pain. His prior neurological examination with myself was concerning for some weakness on the right ankle dorsiflexor and absent right patellar reflex, somewhat concerning for right L4 radiculopathy, and the most corresponding finding noted on his MRI today is right lateral recess, and right foraminal stenosis on the right L4-L5. There is otherwise negative for significant neural impingement on the right. He appears to be asymptomatic with regards to left-sided neurological compression noted on his imaging. We discussed proceeding to an epidural steroidal injection directed towards the right L4-L5 for diagnostic and therapeutic purposes. If there is significant response to this, this will indicate that the right sided neurological compression on L4-L5 is causing his symptoms, and further intervention with his spine are recommended. If there is no significant response whatsoever, we discussed following up with his vascular surgeon, and his primary care physician regarding further evaluation of his right leg pain. documented in this encounter Plan of Treatment Scheduled Referrals Name Type Priority Associated Diagnoses Orde r Schedule Referral to Pain Clinic Outpatient Referral Routine Chronic right-sided low back pain with right-sided sciatica Ordered: 03/22/2017 documented as of this encounter Visit Diagnoses Diagnosis Chronic right-sided low back pain with right-sided sciatica documented in this encounter Care Teams Insulation Sprayer Relationship Specialty Start Date End Date Faye Echavarria MD [address] [place] [id number] PCP - General Family Medicine 12/22/16 documented as of this encounter
--- OUTSIDE RECORDS SUMMARY | 2024-03-07 01:24 | XMS_ITS | Encounter Summary ---
Author Organization [facility] Address [address] [place] [address] Care Team Providers Care Credit Relationship Manager Name Role Phone Unavailable Primary Care Provider Unavailabl e Encounter Details Date Type Department Care Team (Late st Contact Info) Description 01/30/[address] [facility] [address] [place] [address] Dhruv Gastelum MD [address] [place] [address] Social History Tobacco Use Types Packs/Day Years Used Date Smoking Tobacco: Never Assessed Sex and Gender Information Value Date Recorded Sex Assigned at Not on file Gender Identity Not on file Sexual Orientation Not on file documented as of this encounter Plan of Treatment Not on file documented as of this encounter Procedures Procedure Name Priority Date/Time Associated Diagnosis Comments SURGICAL PATHOLOGY Routine 01/30/2002 0:00 EDT documented in this encounter Results * SURGICAL PATHOLOGY (01/30/2002 0:00 EDT) Pathology Report: SURGICAL PATHOLOGY REPORT Reports generated via electronic interface contain original data; however they are lacking the format of the original report. Caution should be taken when reading/interpreti ng unformatted reports. Name: ? TAURUS BURGOS ? Accession #: ? [id number] ? : ? 1965 (Age: 36) ??M ? Collect Date: ? 01/30/2002 ? Location: ? [facility] ? Receive Date: ? 01/30/2002 ? Provider: DHRUV GASTELUM MD Copy to: SIDDHARTHA STAPLETON ACCESS CONTROL OFFICER ? Final Pathologic Diagnosis: ? Skin and soft tissue, pilonidal cyst, excision: 1. ?Skin and subcutaneous tissue with mild dermal/subcutaneou s fibrosis. 2. ?No cyst identified. Document reviewed and electronically signed by: Rusty Castelan [facility] Report ??Date: 02/01/2002 16:18 By the signature above, the attending physician certifies that he/she has personally conducted a gross and/or microscopic examination of the described specimens and rendered or confirmed the above diagnosis. Specimen(s) Received: ? Pilonidal cyst Clinical History: ? Pilonidal cyst Gross Description: ? Received in formalin labelled Garand and #1 pilonidal cyst is an elliptical excision of skin measuring 4.0 x 1.5 cm and is excised to a depth of 1.0 cm. ??The cutaneous surface is mcginnis-brown and generally smooth with no grossly identifiable lesions. ??The specimen is black inked and serially sectioned to reveal no grossly apparent cystic cavity. ??The cut surfaces are mcginnis-white to mcginnis-yellow and without discrete, grossly identifiable lesions. ??The specimen is submitted entirely as follows:BLOCK ISAAC [id number] ?Central sections A5 ?Distal tips, reverse en face (Dr. Shah)/[facility] End of Report [facility] 01/30/2002 01/30/2002 15: 04 EDT Dhruv Gastelum MD PATHOLOGY ORDERABLE S [facility] [address] [place] [address] documented in this encounter Visit Diagnoses Not on filedocumented in this encounter
--- OUTSIDE RECORDS SUMMARY | 2024-03-07 01:24 | XMS_ITS | Encounter Summary ---
Author Organization [facility] [place] [address] Care Team Providers Care Gravel Weigher Name Role Phone Faye Echavarria MD Primary Care Provider [phone] Reason for Referral * Diagnostic Test (Routine) - Closed Specialty Diagnoses / Procedures Referred By Contac t Referred To Contact Radiology Diagnoses Chronic right-sided low back pain with right-sided sciatica Weakness of right leg Procedures MRI Lumbar Spine wo Contrast (Generic) Dawood Reed PA [facility] [place] [address] [place] [address] Referral ID Status Reason Start Date Expiration Date V isits Requested Visits Authorized Closed Specialty Service Requested 02/08/2017 02/08/2018 1 1 Reason for Visit * Diagnostic Test (Routine) - Closed Specialty Diagnoses / Procedures Referred By Contac t Referred To Contact Radiology Diagnoses Chronic right-sided low back pain with right-sided sciatica Weakness of right leg Procedures MRI Lumbar Spine wo Contrast (Generic) Dawood Reed PA [facility] [place] [address] [place] [address] Referral ID Status Reason Start Date Expiration Date V isits Requested Visits Authorized [id number] Closed Specialty Service Requested 02/08/2017 02/08/2018 1 1 Encounter Details Date Type Department Care Team (Latest Contact Info) Description 03/22/2017 7:14 AM EDT - 03/22/2017 11:59 PM EDT [place] [address] Darrick Cameron MD [facility] [place] [address] Chronic right-sided low back pain with right-sided sciatica; Weakness of right leg Discharge Disposition: Home Social History Tobacco Use Types Packs/Day Years [...] on file documented as of this encounter Medications at Time of Discharge Medication Sig Dispensed Refills Start Date End Date aspirin 325 mg Tablet, Delayed Release (E.C.) Take 325 mg by mouth daily. 0 01/02/2017 gabapentin (NEURONTIN) 100 mg Capsule Take 300 mg by mouth 3 times daily. 0 12/17/2016 documented as of this encounter Plan of Treatment Not on file documented as of this encounter Procedures Procedure Name Priority Date/Time Associated Diagnosis Comments MRI LUMBAR SPINE WITHOUT CONTRAST Routine 03/22/2017 8:02 AM EDT Chronic right-sided low back pain with right-sided sciatica Weakness of right leg documented in this encounter Results * MRI Lumbar Spine wo Contrast (Generic) (03/22/2017 8:02 AM EDT) Anatomical Region Laterality Modality L-spine Magnetic Resonan ce Impressions 03/22/2017 9:07 AM EDT Lumbar spondylosis as described in detail above.. Material in the right paracentral region extending cranially at L4-5-1 represent a disc extrusion this may impinge on the right L4 nerve root, given the T2 hyperintensity of this material a postcontrast examination would be helpful for further characterization.. New left paracentral disc extrusion at L3-4 may impinge on the traversing left L4 nerve root. Comment: The following findings are so common in people without low back pain that while we report their presence, they must be interpreted with caution and in context of the clinical situation (Reference- Alexvik et al, Spine 2001). Findings: (Prevalence in patients without low back pain), disc degeneration (decreased T2 signal, height loss, bulge) (91%), disc T2-signal loss (83%), disc height loss (56%), disc bulge (64%), disc protrusion (32%), annular fissure (38%). Narrative 03/22/2017 9:07 AM EDT EXAMINATION: MRI LUMBAR SPINE WO CONTRAST (GENERIC) CLINICAL HISTORY: Back and Right leg pain, w/ absent R patellar reflex and R ankle weakness, s/p vascular surgery w/ persistent pain and weakness, please evaluate for radiculopathy TECHNIQUE: MRI acquired lumbar spine without contrast. COMPARISON: MRI lumbar spine 02/06/2013 FINDINGS: Upper convex scoliosis with compensatory rightward convex curvature lumbosacral junction. Straightening of the normal lordosis. Endplate marrow edema at L4-5 related to disc degeneration. Intraosseous hemangioma at L3. The conus is normal in signal and terminates at L1. T11-12: Central disc extrusion contributing to mild central canal stenosis. T12-L1: Normal. L1-2: Normal. L2-3: Disc bulge and facet arthropathy contributes to mild central canal and mild bilateral neural foraminal stenosis. No significant change. L3-4: Disc bulge with superimposed left foraminal disc protrusion and new left paracentral disc extrusion with 12 mm of caudal migration, and facet arthropathy contributes to mild central canal stenosis and moderate left subarticular recess stenosis. Mild bilateral foraminal stenosis. L4-5 disc bulge and left greater than right facet arthropathy contributes to moderate central canal and moderate left greater than right neural foraminal stenosis. T2 hyperintense, T1 hypointense material extending cranially from the disc space by 14 mm in the right paracentral region. L5-S1: Disc bulge with superimposed central disc extrusion and facet arthropathy contributes to mild central canal and moderate left greater than right neural foraminal stenosis. No significant change. Procedure Note Shilpa Oshea MD - 03/22/2017 EXAMINATION: MRI LUMBAR SPINE WO CONTRAST (GENERIC) CLINICAL HISTORY: Back and Right leg pain, w/ absent R patellar reflex andR ankle weakness, s/p vascular surgery w/ persistent pain and weakness,please evaluate for radiculopathy TECHNIQUE: MRI acquired lumbar spine without contrast. COMPARISON: MRI lumbar spine 02/06/2013 FINDINGS: Upper convex scoliosis with compensatory rightward convexcurvature lumbosacral junction. Straightening of the normal lordosis. Endplatemarrow edema at L4-5 related to disc degeneration. Intraosseous hemangioma at L3.The conus is normal in signal and terminates at L1. T11-12: Central disc extrusion contributing to mild central canalstenosis. T12-L1: Normal. L1-2: Normal. L2-3: Disc bulge and facet arthropathy contributes to mild central [place] mild bilateral neural foraminal stenosis. No significant change. L3-4: Disc bulge with superimposed left foraminal disc protrusion and newleft paracentral disc extrusion with 12 mm of caudal migration, and facetarthropathy contributes to mild central canal stenosis and moderate left subarticularrecess stenosis. Mild bilateral foraminal stenosis. L4-5 disc bulge and left greater than right facet arthropathy contributesto moderate central canal and moderate left greater than right neuralforaminal stenosis. T2 hyperintense, T1 hypointense material extending craniallyfrom the disc space by 14 mm in the right paracentral region. L5-S1: Disc bulge with superimposed central disc extrusion and facetarthropathy contributes to mild central canal and moderate left greater than rightneural foraminal stenosis. No significant change. IMPRESSION Lumbar spondylosis as described in detail above.. Material in the right paracentral region extending cranially at L4-5-1 represent a discextrusion this may impinge on the right L4 nerve root, given the T2 hyperintensity ofthis material a postcontrast examination would be helpful for further characterization.. New left paracentral disc extrusion at L3-4 may impingeon the traversing left L4 nerve root. Comment: The following findings are so common in people without low backpain that while we report their presence, they must be interpreted with cautionand in context of the clinical situation (Reference- Alexvik et al, [id number]). Findings: (Prevalence in patients without low back pain), discdegeneration (decreased T2 signal, height loss, bulge) (91%), disc T2-signal loss(83%), disc height loss (56%), disc bulge (64%), disc protrusion (32%), annularfissure (38%). Darrick Cameron MD [facility] MRI ORDERABLES documented in this encounter Visit Diagnoses Diagnosis Chronic right-sided low back pain with right-sided sciatica Weakness of right leg Other musculoskeletal symptoms referable to limbs documented in this encounter Care Teams Gravel Weigher Relationship Specialty Start Date End Date Faye Echavarria MD [address] [place] [address] PCP - General Family Medicine 12/22/16 documented as of this encounter
--- OUTSIDE RECORDS SUMMARY | 2024-03-07 01:24 | XMS_ITS | Encounter Summary ---
Author Organization [facility] Address [facility] [place] [address] Care Team Providers Care Clockmaker Apprentice Name Role Phone Faye Echavarria MD Primary Care Provider Reason for Referral * Surgical (Routine) - Specialty Diagnoses / Procedures Referred By Contac t Referred To Contact Diagnoses Displacement of lumbar disc with radiculopathy Procedures TRANSFORAMINAL INJECTION Elieser Nieves MD [facility] [place] [address] Referral ID Status Reason Start Date Expiration Date V isits Requested Visits Authorized [id number] Consult, Test & Treat 03/29/2017 03/29/2018 1 1 Reason for Visit * Reason Comments Back Pain lower right Right Leg Pain * Consultation (Routine) - Closed Specialty Diagnoses / Procedures Referred By Contac t Referred To Contact Pain Management Diagnoses Chronic right-sided low back pain with right-sided sciatica Dawood Reed, [place] [facility] [place] [address] [facility] [address] [place] [address] Referral ID Status Reason Start Date Expiration Date V isits Requested Visits Authorized [id number] Closed Assume Subset of Care 03/22/2017 03/22/2018 1 1 Encounter Details Date Type Department Care Team (Latest Contact Info) Description 03/29/2017 12:00 PM EDT Procedure [place] [address] Elieser Nieves MD [facility] [place] [address] Displacement of lumbar disc with radiculopathy (Primary Dx) Social History Tobacco Use Types Packs/Day Years [...] Pulse 82 03/29/2017 12:06 PM EDT Temperature - - Respiratory Rate - - Oxygen Saturation 95% 03/29/2017 12:06 PM EDT Inhaled Oxygen Concentration - - Weight 65.8 kg (145 lb) 03/29/2017 11:39 AM EDT Height 162.6 cm (5' 4) 03/29/2017 11:39 AM EDT Body Mass Index 24.89 03/29/2017 11:39 AM EDT documented in this encounter Patient Instructions * Patient Instructions* Evette Zarate LPN - 03/29/2017 12:00 PM EDT Pain Management Center Discharge Instructions: You were seen by Dr. Elieser Nieves MD who performed rght transforaminal lumbar epidural steroid injection. It is normal that the injection site will be sore for up to 48 hours. You may also experience mild stiffness in the joint near the injection site. [x] You may resume your normal activities: tomorrow. You may shower today. DO NOT tub bathe, use whirlpools, hot tubs or pool therapy for 2 days. RemoveBand-Aid(s) later today/tomorrow. Do not drive until tomorrow. Use caution walking/climbing stairs as you may be unsteady on your feet. You may use your usual medications, including pain medications, as directed, unless otherwise instructed. You may use an ice pack as needed for the first 24 hours, on for 20 minutes then off for 20 minutes. Do not apply heat today. Attempt to empty your bladder 4-6 hours after your procedure. You received the following medications: Depo-Medrol 60 mg, Lidocaine and Omnipaque (contrast dye). During regular business hours, please phone the Pain Management Center at with any questions or if the following or other troubling symptoms develop: 1) Prolonged dizziness or weakness (more than 1 day). 2) Localized swelling, redness or drainage at the injection site(s). 3) Temperature of 101 degrees that lasts for more than 4 hours. After 5 PM or on weekends, call and ask for Pain Clinic provider on-call. If you are unable to reach the Pain Management Center and have a complication, please call your Primary Care Provider or proceed to your local emergency department. Evette Zarate LPN documented in this encounter Progress Notes * Evette Zarate LPN - 03/29/2017 12:00 PM EDT Pre-Procedure Screening Questions: 1. Status: No 2. Patient states they have a retail delivery driver to transport after procedure? Yes 3. Patient taking antibiotics at present? No 4. NPO per Pain Management Center protocol? Yes 5. Patient diabetic: No 6. Patient routinely taking anticoagulants ? No Patient Vital Signs documented in Doc Flowsheets associated with this encounter. Patient Discharge Instructions were reviewed with patient and copy provided to patient. documented in this encounter Procedure Notes * Elieser Nieves MD - 03/29/2017 12:00 PM EDTAssociated Order(s): TRANSFORAMINAL INJECTION Procedure(s): TRANSFORAMINAL INJECTION Pre-Procedure Diagnose(s): Displacement of lumbar disc with radiculopathy PROCEDURE NOTE Transforaminal Epidural Steroid Injection with Fluoroscopic Guidance at right L4-L5 Chief Complaint: right leg pain. Taurus Meraz has been referred to the Pain Management Center for Lumbar Transforaminal EpiduralSteroid Injection right L4-L5 COMMENTS: Referring provider: Dr. Reed Allergies: Allergies Allergen Reactions ??? Codeine Phosphate Hives ??? Penicillins GI Upset ??? Bupropion Nightmares ??? Plavix [Clopidogrel] Itching and Rash Pre-procedure VAS: 8/10 to the right leg. Follow up plan: F/U with Dawood Brown May repeat right L4-5 TFESI if good but temporary relief obtained. MRI Reviewed: Disc displacement and right L4 Taurus Meraz was greeted by the nurse who verified patients name and . Patient was then taken to the fluoroscopy suite. Mr. Meraz was interviewed and the medical record reviewed. There were no medical, pharmacologic, radiographic or other structural contraindications to attempting fluoroscopically guided transforaminal lumbar epidural steroid injection. The risks, benefits, and potential side effects were reviewed with the patient. Risk include, but not limited to, post dural puncture, headache, infection, nerve injury, allergic reaction, possible increase in symptoms over the ensuing 24 to 48 hours, and paralysis. The patient appeared to understand, questions were answered and the patient agreed to proceed. Once I obtained informed verbal consent, the printed consent form was signed by the patient and myself. Standard time-out procedure was performed. TECHNIQUE: After informed written consent was obtained the patient was placed in the prone position. The lumbar spine spine was prepped with chloraprep and draped. Sterile technique was observed during the entire procedure ( cap, gloves, and mask were worn). Vitals signs were monitored throughout the procedure. The right side was marked with a radioopaque marker. The skin and subcutaneous structures were anesthetized with lidocaine 1% to a total volume of 3 ML at each level. Under fluoroscopic guidance, in ipsilateral oblique view, co-axial approach, 25 gauge 3.5 inch spinal needle(s) were advanced to the base of the L-4. pedicle(s). The needle(s) were advanced to the superio-posterior aspect of the neural foramen under lateral view. Oblique and AP views were rechecked. Under AP view Omnipaque 240 1 cc's was injected while visualized with fluoroscopy. There was no evidence of intravascular uptake, the epidural space was delineated. 10 mg Dexamethasone was injected after negative aspiration, at each level, followed by lidocaine 1% 1.0-ML at each level. Outcome: The patient tolerated the procedure well and had stable vital signs. The patient noted after getting up after the procedure that their right leg pain was at a 3 out of 10 level. Follow up plans and appointments were discussed with Mr. Meraz. The patient was observed in the pain clinic and then discharged after having met discharge criteria to the care of a retail delivery driver. The patient received written instructions as documented in nursing records. Disposition: Mr. Meraz was discharged from the procedure suite without new neurological complaints. Follow-up: Follow up with Dr. Reed as scheduled or PRN. I personally performed the entire procedure. Elieser Nieves MD, MS Clinical Genetic Supervisor of Anesthesiology [address] [phone] / [facility] CC: [facility] [place] [id number] documented in this encounter Plan of Treatment Not on file documented as of this encounter Procedures Procedure Name Priority Date/Time Associated Diagnosis Comments TRANSFORAMINAL INJECTION Routine 04/01/2017 8:42 AM EDT Displacement of lumbar disc with radiculopathy documented in this encounter Results * TRANSFORAMINAL INJECTION (04/01/2017 8:42 AM EDT) Narrative Elieser Nieves MD - 04/01/2017 8:42 AM EDT Elieser Nieves MD ? 04/01/2017 ??8:42 AM PROCEDURE NOTE Transforaminal Epidural Steroid Injection with Fluoroscopic Guidance at right L4-L5 Chief Complaint: right leg pain. ?? Taurus Meraz has been referred to the Pain Management Center for Lumbar Transforaminal Epidural Steroid Injection ??right L4-L5 COMMENTS: Referring provider: Dr. Reed Allergies: Allergies Allergen Reactions ? ? Codeine Phosphate Hives ? ? Penicillins ?GI Upset ? ? Bupropion ?Nightmares ? ? Plavix [Clopidogrel] Itching and Rash Pre-procedure VAS: 8/10 to the right leg. Follow up plan: F/U with Dawood Brown May repeat right L4-5 TFESI if good but temporary relief obtained. MRI Reviewed: ??Disc displacement and right L4 Taurus Meraz was greeted by the nurse who verified patients name and . ??Patient was then taken to the fluoroscopy suite. Mr. Meraz was interviewed and the medical record reviewed. ?? There were no medical, pharmacologic, radiographic or other structural contraindications to attempting fluoroscopically guided transforaminal lumbar epidural steroid injection. ??The risks, benefits, and potential side effects were reviewed with the patient. ??Risk include, but not limited to, post dural puncture, headache, infection, nerve injury, allergic reaction, possible increase in symptoms over the ensuing 24 to 48 hours, and paralysis. ??The patient appeared to understand, ??questions were answered and the patient agreed to proceed. ??Once I obtained informed verbal consent, the printed consent form was signed by the patient and myself. Standard time-out procedure was performed. TECHNIQUE: ??After informed written consent was obtained the patient was placed in the prone position. ??The lumbar spine spine was prepped with chloraprep and draped. ??Sterile technique was observed during the entire procedure ( cap, gloves, and mask were worn). Vitals signs were monitored throughout the procedure. ??The right side was marked with a radioopaque marker. ??The skin and subcutaneous structures were anesthetized with lidocaine 1% to a total volume of 3 ??ML at each level. Under fluoroscopic guidance, in ipsilateral oblique view, co-axial approach, ??25 gauge 3.5 inch spinal needle(s) were advanced to the base of the ?? L-4. ?? pedicle(s). ??The needle(s) were advanced to the superio-posterior aspect of the neural foramen under lateral view. ??Oblique and AP views were rechecked. ??Under AP view Omnipaque 240 ??1 cc's was injected while visualized with fluoroscopy. ?? There was no evidence of intravascular uptake, the epidural space was delineated. ??10 mg Dexamethasone was injected after negative aspiration, at each level, followed by lidocaine 1% 1.0-ML at each level. Outcome: The patient tolerated the procedure well and had stable vital signs. The patient noted after getting up after the procedure that their right leg pain was at a 3 out of 10 level. ? Follow up plans and appointments were discussed with Mr. Meraz. The patient was observed in the pain clinic and then discharged after having met discharge criteria ??to the care of a retail delivery driver. ?? The patient received written instructions as documented in nursing records. ?? Disposition: ??Mr. Meraz was discharged from the procedure suite without new neurological complaints. Follow-up: Follow up with Dr. Reed as scheduled or PRN. I personally performed the entire procedure. Elieser Nieves MD, MS Clinical Genetic Supervisor of Anesthesiology [address] [phone] / [facility] CC: [place] [address] Elieser Nieves MD PROCEDURE/MINOR SURG ICAL ORDERABLES documented in this encounter Visit Diagnoses Diagnosis Displacement of lumbar disc with radiculopathy- Primary documented in this encounter Administered Medications Inactive Administered Medications - up to 3 most recent administrations Medication Order MAR Action Action Date Dose Rate Site iohexol (OMNIPAQUE) 240 mg/mL solution 2 mL 2 mL, Epidural, ONCE, 1 dose, On Tue03/29/17 at 1200, Wasted 48 ml, Routine Given 03/29/2017 12:00 PM EDT 2 mLs methylPREDNISolone acetate (DEPO-Medrol) injection 60 mg 60 mg, Epidural, ONCE, 1 dose, On Tue03/29/17 at 1200, No waste to document, Routine Given 03/29/2017 12:00 PM EDT 60 mg documented in this encounter Care Teams Clockmaker Apprentice Relationship Specialty Start Date End Date Faye Echavarria MD [address] [place] [address] PCP - General Family Medicine 12/22/16 documented as of this encounter
--- OUTSIDE RECORDS SUMMARY | 2024-03-07 01:24 | XMS_ITS | Data Portability ---
Author Organization [place] - [facility] Address [address] [place] [address] Assessment Encounter Date Assessment Date Assessment LastModified by Organization Details LastModified Time 11/21/2023 11/21/2023 The total time devoted to today's encounter, including both the gquq-wk-qbnh time with the patient and/or family/caregi yessica and mnw-cwmz-os-f yoli time I personally spent is 35 minutes. lbisson Not available 11/21/2023 11:18:19 02/29/2024 02/29/2024 The total time devoted to today's encounter, including both the ttbv-et-husi time with the patient and/or family/caregi yessica and luu-zxct-ta-f yoli time I personally spent is 34 minutes. lbisson Not available 02/29/2024 09:15:00 Plan of Treatment Reminders Order Date Submit Date Provider Last Modified By Organization Details Last Modified Time Details Appointments None recorded. Lab None recorded. Referral None recorded. Procedures None recorded. Surgeries None recorded. Imaging CT, chest, w/ contrast 2023 024 [facility] (Radiology), [address] [place] [address] [place], [address], 13:19:25 Medication Orders oxycodone 10 mg tablet 2023 024 [facility], [address] [place], [address], 09:13:58 oxycodone 10 mg tablet 2023 024 [facility], [address] [place], [address], 4 07:49:00 oxycodone 10 mg tablet 2023 024 [facility], [address] [place] [address], [address], 4 15:26:30 lisinopril 20 mg-hydrochl orothiazide 25 mg tablet 2023 024 [facility], [address] [place] [address], [address], 4 09:13:57 oxycodone 10 mg tablet 2023 [facility], [address] [place] [address], [address], 4 11:11:45 oxycodone 10 mg tablet 2023 024 [facility], [address] [place] [address], [address], 4 11:11:48 oxycodone 10 mg tablet 2023 024 [facility], [address] [place] [address], [address], 4 09:03:08 lisinopril 20 mg-hydrochl orothiazide 25 mg tablet 2023 024 [facility], [address] [place] [address], [address], 4 11:11:22 oxycodone 10 mg tablet 2023 024 [facility], [address] [place] [address], [address], 4 09:16:14 oxycodone 10 mg tablet 2023 024 [facility], [address] [place], [address], 4 09:16:13 oxycodone 10 mg tablet 2023 024 [facility], [address] [place], [address], 4 09:16:13 Patient TargetsNo targets recorded. Patient InstructionsNo instructions recorded. Reason for Referral None Reported. Problems Name Status Onset Date Resolution Date Notes Provider Name and Address Organization Details Recorded Time Tobacco dependence caused by cigarettes Active 2003 Anjelica Kettoleathatrupti [employer], [facility] 4 15:08:48 Low back pain Active 2016 Anjelica [employer], [facility] 4 15:08:02 Pain in right lower limb Active 2016 Anjelica Seibold [employer], [facility] 4 15:08:28 Adult health examination Active 2016 Anjelica Kettoibold [employer], [facility] 4 15:06:41 Visual disturbance Active 2017 Anjelica Seibold null, [facility] 4 15:09:01 Pleuritic pain Active 2017 Anjelica Seibold null, [facility] 4 15:08:40 Essential hypertension Active 2017 Anjelica Seibold null, [facility] 4 15:07:03 Headache Active 2018 Anjelica [employer], [facility] 4 15:07:11 Osteoarthriti s of knee Active 2018 Anjelica Kettoibold null, [facility] 4 15:08:21 [facility] 15[facility] Screening for malignant neoplasm of colon Completed 201905/23/2023 Problem Code: Z12.11; Problem Code Type: ICD-10; Not Available [facility] 4 05:37:15 Arthralgia of the ankle and/or foot Active 2020 [facility] 4 15:06:46 Vitamin D deficiency Active 2021 [facility] 4 15:09:05 Dysphagia Active 2021 [facility] 4 15:06:50 Pain of left knee joint Active 2022 [facility] 4 15:08:34 Epidermoid cyst of skin Completed 202205/23/2023 Problem Code: L72.3; Problem Code Type: ICD-10; Not Available [facility] 4 05:37:15 Shoulder joint pain Active 2022 [facility] 4 15:08:45 Malaise Active 2022 [facility] 4 15:08:14 Skin finding Completed 201609/07/2017 Problem Code: R23.8; Problem Code Type: ICD-10; Not Available [facility] 3 05:10:39 Counseling Completed 201601/13/2017 Problem Code: Z71.89; Problem Code Type: ICD-10; Not Available [facility] 3 05:10:40 Alcohol abuse Completed 200204/20/2023 03/12/2020 - Comments only - Faye Echavarria MD - Patient reports he is not drinking alcohol at this time. Problem Code: F10.10; Problem Code Type: ICD-10; Not Available [facility] 3 05:10:40 Viral hepatitis C Completed 200104/20/2023 Not Available [facility] 3 05:10:40 Cough Completed 201704/26/2018 Problem Code: R05; Problem Code Type: ICD-10; FAYE ECHAVARRIA MD [address], [place], [address] , [facility] 4 08:54:15 Depressive disorder Completed 201207/01/2017 Not Available [facility] 3 05:10:41 Low back pain Completed 200107/01/2017 Anjelica aquino [facility] 4 15:08:02 Periapical abscess Completed 201702/04/2023 Problem Code: K04.7; Problem Code Type: ICD-10; Not Available [facility] 3 05:10:41 Dyspnea Completed 201704/20/2023 Problem Code: R06.02; Problem Code Type: ICD-10; Not Available [facility] 3 05:10:41 Nicotine dependence Completed 200304/20/2023 11/23/2021 - Comments only - Faye Echavarria MD - Patient is a longstanding smoker. He is least 42 plus pack year history and he currently smokes. He reports it is probably higher when he was younger he smoked more than 1 pack a day. At this stage he is asymptomatic but we will go ahead and get a low-dose CT scan for screening. We discussed smoking cessation. Problem Code: F17.200; Problem Code Type: ICD-10; Not Available [facility] 3 05:10:41 Smoker Completed 200304/20/2023 06/11/2020 - Comments only - Faye Echavarria MD - Discussed smoking cessation. Not Available [facility] 3 05:10:42 History of alcohol abuse Active 2002 Anjelica aquino [facility] 4 15:07:50 Cough Active 2023 Problem Code: R05; Problem Code Type: ICD-10; MD [address], [facility] [address] , [facility] 4 08:54:15 Persistent cough Active [address], [facility] [address] , [facility] 4 08:54:35 Persistent cough Active [address], [facility] [address] , [facility] 4 09:12:43 Notes:*Problem Name: Contrac t *ICD-10 Codes: *Problem Status: inactive *Comments: *Note Date: 08/13/2005 *Problem Name: Contract *ICD-10 Codes: *Problem Status: inactive *Comments: *Problem Code Type: CPT *Note Date: 08/13/2005 Problem Notes None recorded. Procedures Surgical History Date Name Laterality Status Provider Name and Address Organization Details Recorded Time 2 total knee replacement completed LIGIA GRANDE, [facility] 08/22/2023 08:43:12 Imaging Results None recorded. Procedure Notes None recorded. Medical Equipment None Reported. Allergies Allergen ID Allergen Name Allergen Category Reaction Reaction Severity Criticality Documentation Date Start Date Code Code System Note Provider Name and Address Organization Details Recorded Time 34361 Plavix medicatio n rash mild Not available 06/03/20232016 89502 2 RxNorm itchy rash Aller gyRea ction : 'itch y rash' ; Not Available [facility] 3 16:07:13 29330 buspirone hydrochlo ride medicatio n other mild Not available 06/03/20232011 01310 6 RxNorm night ballard Aller gyRea ction : 'nigh tmare s'; Not Available [facility] 3 16:07:13 18846 Elavil medicatio n other mild Not available 06/03/20232012 35401 RxNorm night ballard Aller gyRea ction : 'nigh tmare s'; Not Available [facility] 3 16:07:13 97903 codeine medicatio n rash mild Not available 06/03/20232010 2670 RxNorm Rash Aller gyCod e: '0040 28451 32'; Aller gyNam e: 'CODE INE'; Aller gyCon ceptT ype: 'NDC' ; Not Available [facility] 3 16:07:14 Medications Name Sig Start Date Stop Date Status Note LastModified by Organization Details LastModified Time cyclobenzap rine 10 mg tablet Take 1 tab by mouth at bedtime 07/01 completed Not Available Not Available Not Available bupropion HCl SR 150 mg tablet,12 hr sustained-r elease 1 TAB BID 02/14 completed Not Available Not Available Not Available Effexor XR 75 mg capsule,ext ended release 1 TAB daily 06/22 completed Not Available Not Available Not Available clindamycin HCl 300 mg capsule Take 1 cap by mouth four times daily 03/27 completed Not Available Not Available Not Available lisinopril 20 mg-hydrochl orothiazide 12.5 mg tablet Take 1 tablet by mouth once a day 05/28 completed Not Available Not Available Not Available aspirin 325 mg tablet Take 1 tab by mouth daily 07/01 completed Not Available Not Available Not Available ibuprofen 800 mg tablet TAKE ONE TABLET BY MOUTH EVERY 8 HOURS NEEDED FOR PAIN active Not Available Not Available No t Available Vicodin 5 mg-500 mg tablet 1 TAB twice daily 08/15 completed Not Available Not Available Not Available Levaquin 750 mg tablet Take 1 tab by mouth daily 03/03 completed Not Available Not Available Not Available Effexor XR 37.5 mg capsule,ext ended release 1 TAB daily 06/22 completed Not Available Not Available Not Available lisinopril 20 mg tablet Take 1 tab by mouth daily 2017 active Not Available Not Available Not Avai lable gabapentin 400 mg capsule TAKE ONE CAPSULE BY MOUTH FOUR TIMES A DAY active Not Available Not Available No t Available clindamycin HCl 150 mg capsule Take 1 capsule by mouth three times a day 02/04 completed Not Available Not Available Not Available hydrocodone 10 mg-acetamin ophen 325 mg tablet Take 1 tablet by mouth four times a day 10/28 completed Not Available Not Available Not Available tramadol 50 mg tablet Take 1 4 times a day 08/10 completed Not Available Not Available Not Available Voltaren 75 mg tablet,fabi yed release 1 TAB twice daily 07/01 completed Not Available Not Available Not Available lisinopril 10 mg tablet Take 1 tab by mouth daily 2017 active Not Available Not Available Not Avai lable indomethaci n 50 mg capsule 1 tab 3 times a day 12/07 completed Not Available Not Available Not Available gabapentin 300 mg capsule Take 1 cap three times daily 2016 active Not Available Not Available Not Avai lable lisinopril 20 mg-hydrochl orothiazide 25 mg tablet TAKE ONE TABLET BY MOUTH EVERY DAY IN THE MORNING active Not Available Not Available No t Available gabapentin 100 mg capsule 300mg TID 2016 active Not Available Not Available Not Avai lable Viagra 100 mg tablet Take 1 tablet by mouth as directed as needed 01/26 completed Not Available Not Available Not Available ibuprofen 600 mg tablet Take 1 tablet by mouth four times a day as needed 12/31 completed Not Available Not Available Not Available Naprosyn 500 mg tablet Take 1 tablet twice a day 01/02 completed Not Available Not Available Not Available Ventolin HFA 90 mcg/actuati on aerosol inhaler 2 puffs every 6 hours as needed 2017 active Not Available Not Available Not Avai lable oxycodone 5 mg tablet Take 1 tablet by mouth four times a day 2021 active Not Available Not Available Not Avai lable Vitamin D 50,000 unit capsule 1CAP twice a week 07/01 completed Not Available Not Available Not Available Cymbalta 60 mg capsule,del ayed release Take 1 tab by mouth twice daily 07/01 completed Not Available Not Available Not Available Cymbalta 30 mg capsule,del ayed release 1CAP twice daily 08/29 completed Not Available Not Available Not Available Vitamin D 1CAP QD 07/01 completed Not Available Not Available Not Available oxycodone 10 mg tablet Take 1 tablet 3 times a day by oral route as directed for 28 days, for Chronic pain. 2023 active Not Available Not Available Not Avai lable Chantix Continuing Month Box 1 mg tablet Take 1 tab by mouth twice daily 09/25 completed Not Available Not Available Not Available Chantix Starting Month Box 0.5 mg (11)-1 mg (42) tablets in dose pack 0.5mg qd x3, then 0.5mg bid x4, then 1mg bid 09/25 completed Not Available Not Available Not Available Narcan 4 mg/actuatio n nasal spray Administe r 1 into both nostrils as needed 2020 active Not Available Not Available Not Avai lable Vitals Date Recorded Body height Body mass index (BMI) Body weight Body temperature Oxygen saturation Oxygen saturation in Arterial blood by Pulse oximetry Heart rate Respiratory rate Systolic blood pressure Diastolic blood pressure Provider Name and Address Organization Details Last Updated DateTime 4 160.02 cm 24.8 kg/m2 63339.9 3 g 97 [degF] 97 % 97 % 95 /min 20 /min 142 mm[Hg] 70 mm[Hg] ULISSES ALLEN MA [facility] 4 08:45:56 Date Recorded Body height Body mass index (BMI) Body weight Body temperature Oxygen saturation Oxygen saturation in Arterial blood by Pulse oximetry Heart rate Respiratory rate Systolic blood pressure Diastolic blood pressure Provider Name and Address Organization Details Last Updated DateTime 4 160.02 cm 24.4 kg/m2 73380.7 5 g 97.1 [degF] 95 % 95 % 84 /min 18 /min 150 mm[Hg] 76 mm[Hg] SULY SULLIVAN RN [facility] 4 10:47:04 Date Recorded Body height Body mass index (BMI) Body weight Oxygen saturation Oxygen saturation in Arterial blood by Pulse oximetry Heart rate Systolic blood pressure Diastolic blood pressure Provider Name and Address Organization Details Last Updated DateTime 4 160.02 cm 23.9 kg/m2 74489.9 7 g 98 % 98 % 85 /min 157 mm[Hg] 86 mm[Hg] Luis Dougherty [facility] 08:35:24 Social History Question Answer Notes LastModified by Organizat ion Details LastModified Time Tobacco Smoking Status Current Every Day Smoker LIGIA GRANDE, [facility] 08/22/2023 08:42:40 1) Date Of Last VPMS Check? 02/28/2024 Oxycodone 10 Mg Tabs Last Filled 02/06/24 #28 Information not available 02/28/2024 2) VPMS Findings No Concerns Information not available 02/28/2024 4) Daily MME 45.00 Information not available 02/28/2024 What Was The Date Of Your Most Recent Tobacco Screening? 08/22/2023 Information not available 08/22/2023 At What Age Did You Start Smoking Tobacco? 21 Information not available 08/22/2023 How Much Tobacco Do You Smoke? 1 PPD Information not available 08/22/2023 Has Tobacco Cessation Counseling Been Provided? Yes Information not available 08/22/2023 On What Date Was Tobacco Cessation Counseling Provided? 08/22/2023 Information not available 08/22/2023 How Many Years Have You Smoked Tobacco? 40 Information not available 08/22/2023 Do You Or Have You Ever Used Any Other Forms Of Tobacco Or Nicotine? No Information not available 08/22/2023 Sex: Male Functional Status None recorded. Mental Status None recorded. Family History Relationship Description Onset Age of this Age Resolved Age Notes Father Family history of Arthritis Mother Family history of malignant neoplasm pancreatic Notes:*Problem: UPDATED HEWITT GES MADE 12/07/10 Mother: pancreatic CA 2007 Father: alive age 72 arthritis Sisters: 1 with LBP 2009 pneumonia (had an underlying illness but Taurus isn't sure what this was) BROTHER 1 IN FIRE 1999, 3 LIVING 55 y/o STOMACH PROBLEMs, 52 y/o THROAT CANCER, 49 y/o HEALTHY Family History of: Hypertension: no Hyperlipidemia: no Coronary heart disease: no Diabetes mellitus: no Colorectal cancer: no Alcoholism: yes Mental illness: no Other: THROAT AND PANCREATIC CA No h/o prostate CA Medical History No medical history recorded. Immunizations Vaccine Type Date Status Provider Name and Address Organization Details Recorded Time Tdap 01/12/2017 completed Not Available [facility] 06:12:07 COVID-19, mRNA, LNP-S, PF, 30 mcg/0.3 mL dose 07/20/2021 completed Not Available [facility] 06/03/2023 06:12:07 COVID-19 vaccine, vector-nr, rS-Ad26, PF, 0.5 mL 02/08/2021 completed Not Available [facility] 06/03/2023 06:12:07 COVID-19, mRNA, LNP-S, PF, pilar-sucrose, 30 mcg/0.3 mL 05/23/2023 completed Not Available [facility] 08/05/2023 05:31:24 Past Encounters Encounter ID Performer Location Encounter Start Date Encounter Closed Date Diagnosis/Indication Diagnosis SNOMED-CT Code [id number] FAYE ECHAVARRIA MD [address] [address] 08/22/2023 08:32:18 08/22/2023 09:15:10 Low back pain 627319776 Essential hypertension 45859346 Shoulder joint pain 2751 30144 [id number] FAYE ECHAVARRIA MD [address] [address] 11/21/2023 10:35:07 11/21/2023 11:34:54 Essential hypertension 04418637 Low back pain 568680508 Tobacco de pendence caused by cigarettes 859365004765051 07 [id number] FAYE ECHAVARRIA MD [address] [address] 02/29/2024 08:17:36 02/29/2024 09:18:06 Persistent cough 881639606 Low back pain 836946877 Health Concerns Section Related Observation LastModified by Organization Detai ls LastModified Time None Recorded Concern Status LastModified by Organization Details LastModified Time None Recorded Advance Directives Directive None Recorded Payers Encounter Date Sequence Insurance Name Policy Number Policy Portillo Covered Member ID Portillo Member ID Guarantor Name 08/22/2023 1 [place] [facility] Taurus Meraz [id number] Taurus Meraz 08/22/2023 2 [facility] (MEDICAID) Taurus Meraz [id number] Taurus Meraz 11/21/2023 1 [place] [facility] Taurus Meraz [id number] Taurus Meraz 11/21/2023 2 [facility] (MEDICAID) Taurus Meraz [id number] Taurus Meraz 02/29/2024 1 [place] [facility] Taurus Meraz [id number] Taurus Meraz 02/29/2024 2 [facility] (MEDICAID) Taurus Mreaz [id number] Taurus Meraz Notes Date Note Type Note Provider Name and Address Organization Details Recorded Time 08/22/2023 text/html HPI Notes: Lai tavera comes in today to follow-up on several of his health concerns. He is here because of his chronic back pain needs to get his chronic pain medication refilled. For PMS is unremarkable. He has been following with Dr. Michael directed steroid injections in both of his shoulders every 3 months because of chronic shoulder pain. He states the last 1 in his right shoulder really did not do any good and he cannot get another shot for another month. He reports that he has been using ice. He reports that he did not take his lisinopril today to use he takes it around noon. But he thinks he may be out. He continues to be a smoker. FAYE ECHAVARRIA MD [address], [place], [address], [facility]. 08/22/2023 09:21:14 11/21/2023 text/html HPI Notes: Lai tavera comes in today to follow-up on his chronic low back pain and shoulder pain. He is status post a left knee replacement. He sees the orthopedic surgeon every 3 months to receive injections in his shoulders and they continue to be quite bothersome. He is trying to do the exercises to help keep them from getting stiffer. He has lost a fair amount of range of motion. He continues to smoke he is cutting down he states he is now down to about a pack a day he had been at 2. He reports that he had ran out of his lisinopril and was unable to get to the pharmacy over the last 3 to 4 days because he did not have a vehicle. He will be able to pick them up today. He denies any constipation fever chills shortness of breath chest pain nausea vomiting diarrhea. MD [address], [place], [address], [facility]. 11/21/2023 11:19:44 02/29/2024 text/html HPI Notes: Lai tavera comes in today to follow-up on his chronic back pain but also because he has been having this weird persistent coughing and clearing of his throat every day. He brings up copious amounts of mucus up and then he feels like he is choking on it and gets nauseous. He is very concerned he had 2 of his family members who of pancreatic cancer he is very worried that that could be what it is. He does not use any alcohol though he used to do. He has cut his smoking down to just 5 cigarettes a day he is working on getting rid of those. But this has been very anxiety provoking for him. He states he has been having a hard time to eat because his teeth are in such disrepair that it hurts to chew he has not been able to see a dentist he had seen one in [place] a year ago but unfortunately that is been difficult to get into. And he has not really pursued that. He denies any bloody stools or black tarry stools he has not having any epigastric pain. He has a lot of general malaise. He states he starts the morning by coughing up copious amounts of thick mucus. MD [address]ette [address], [place], [address], [facility]. 02/29/2024 09:16:45
--- OUTSIDE RECORDS SUMMARY | 2024-03-07 01:24 | XMS_ITS | Encounter Summary ---
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 Role Phone Unknown, Provider Primary Care Provider Encounter Details Date Type Department Care Team (Late st Contact Info) Description 06/18/2020 Lab Requisition [facility] Pathology & Laboratory Medicine - [facility] [address] [place] [address] Outr Resulting Lab, Provider Social History Tobacco Use Types Packs/Day Years Used Date Smoking Tobacco: Never Assessed Sex and Gender Information Value Date Recorded Sex Assigned at Not on file Gender Identity Not on file Sexual Orientation Not on file documented as of this encounter Plan of Treatment Not on file documented as of this encounter Procedures Procedure Name Priority Date/Time Associated Diagnosis Comments PSA TOTAL, DIAGNOSTIC After X-Ray 06/05/2020 8:50 EST documented in this encounter Results * PSA TOTAL, DIAGNOSTIC (06/05/2020 8:50 EST) PSA 0.8 0.0 - 3.5 ng/mL 07/15/2020 10:06 EST [facility] Blood VENOUS BLOOD / Unknown 06/05/2020 8:50 EST 07/11/2020 9:23 EST Narrative [facility] - 07/15/2020 10:06 EST NOTE: Serum PSA concentration should not be interpreted as absolute evidence for the presence or absence of malignant disease. Assayed on Siemens ADVIA Centaur XPT using chemiluminescent technology.??Values obtained by using different assay methods cannot be used interchangeably. Provider Outr Resulting Lab CHEMISTRY & BLOOD GAS ORDERABLES [facility] [address] [place] [address] documented in this encounter Visit Diagnoses Not on filedocumented in this encounter Care Teams Roller Presser Operator Relationship Specialty Start Date End Date Unknown, Provider, PCP - General 06/03/15 documented as of this encounter
--- OUTSIDE RECORDS SUMMARY | 2024-03-07 01:24 | XMS_ITS | Continuity of Care Document ---
Author Organization [place] - [facility] Address [address] [place] [address] Assessment Encounter Date Assessment Date Assessment LastModified by Organization Details LastModified Time 02/29/2024 02/29/2024 The total time devoted to today's encounter, including both the aehi-[id number]-lejr time with the patient and/or family/caregi yessica and [id number] yoli time I personally spent is 34 minutes. lbisson Not available 02/29/2024 09:15:00 Plan of Treatment Reminders Order Date Submit Date Provider Last Modified By Organization Details Last Modified Time Details Appointments None recorded. Lab None recorded. Referral None recorded. Procedures None recorded. Surgeries None recorded. Imaging CT, chest, w/ contrast 2023 024 [facility] (Radiology), [address] [place] [address] [place], [address], 13:19:25 Medication Orders oxycodone 10 mg tablet 2023 024 [facility], [address] [place], [address], 4 09:16:14 oxycodone 10 mg tablet 2023 024 [facility], [address] [place], [address], 4 09:16:13 oxycodone 10 mg tablet 2023 024 [facility], [address] [place], [address], 4 09:16:13 Patient TargetsNo targets recorded. Patient InstructionsNo instructions recorded. Reason for Referral None Reported. Problems Name Status Onset Date Resolution Date Notes Provider Name and Address Organization Details Recorded Time [facility] dependence caused by cigarettes [facility] 4 15:08:48 Low back pain Active 2016 [facility]jelica [facility] 4 15:08:02 Pain in right lower limb Active 2016 [facility] 4 15:08:28 Adult health examination Active 2016 Anjelica [facility] 4 15:06:41 Visual disturbance Active 2017 [facility] 4 15:09:01 Pleuritic pain Active 2017 [facility] 4 15:08:40 Essential hypertension Active 2017 [facility]. 4 15:07:03 Headache Active 2018 [facility] 4 15:07:11 Osteoarthriti s of knee Active 2018 [facility] 4 15:08:21 Erectile dysfunction Active 2019 [facility]. 4 15:06:58 Screening for malignant neoplasm of colon Completed 201905/23/2023 Problem Code: Z12.11; Problem Code Type: ICD-10; Not Available [facility] 4 05:37:15 Arthralgia of the ankle and/or foot Active 2020 [facility] [employer] [facility]. 4 15:06:46 Vitamin D deficiency Active 2021 Anjelica aquino, [facility] 4 15:09:05 Dysphagia Active 2021 Anjelica aquino, [facility] 4 15:06:50 Pain of left knee joint Active 2022 Anjelica aquino, [facility] 4 15:08:34 Epidermoid cyst of skin Completed 202205/23/2023 Problem Code: L72.3; Problem Code Type: ICD-10; Not Available [facility] 4 05:37:15 Shoulder joint pain Active 2022 Anjelica aquino, [facility] 4 15:08:45 Malaise Active 2022 [facility]icaher [facility] 4 15:08:14 Skin finding Completed 201609/07/2017 Problem Code: R23.8; Problem Code Type: ICD-10; Not Available [facility] 3 05:10:39 Counseling Completed 201601/13/2017 Problem Code: Z71.89; Problem Code Type: ICD-10; Not Available [facility] 3 05:10:40 Alcohol abuse Completed 200204/20/2023 03/12/2020 - Comments only - Faye Echavarria MD - Patient reports he is not drinking alcohol at this time. Problem Code: F10.10; Problem Code Type: ICD-10; Not Available [facility] 3 05:10:40 Viral hepatitis C Completed 200104/20/2023 Not Available [facility] 3 05:10:40 Cough Completed 201704/26/2018 Problem Code: R05; Problem Code Type: ICD-10; MD [address], [place], [address] , [facility] 4 08:54:15 Depressive disorder Completed 201207/01/2017 Not Available [facility] 3 05:10:41 Low back pain Completed 200107/01/2017 Anjelica Jensen kenia [facility] 4 15:08:02 Periapical abscess Completed 201702/04/2023 Problem Code: K04.7; Problem Code Type: ICD-10; Not Available [facility] 3 05:10:41 Dyspnea Completed 201704/20/2023 Problem Code: R06.02; Problem Code Type: ICD-10; Not Available [facility] 3 05:10:41 Nicotine dependence Completed 200304/20/2023 11/23/2021 [...] F17.200; Problem Code Type: ICD-10; Not Available [facility] 3 05:10:41 Smoker Completed 200304/20/2023 06/11/2020 - Comments only - Faye Echavarria MD - Discussed smoking cessation. Not Available [facility] 3 05:10:42 History of alcohol abuse Active 2002 Anjelica Seapril aquino, [facility] 4 15:07:50 Cough Active 2023 Problem Code: R05; Problem Code Type: ICD-10; MD [address], [place], [address] , [facility] 4 08:54:15 Persistent cough Active [address], [place], [address] , [facility] 4 08:54:35 Persistent cough Active 2023 FAYE ECHAVARRIA MD [address], [place], [address] , [facility] 4 09:12:43 Notes:*Problem Name: Contrac t *ICD-10 Codes: *Problem Status: inactive *Comments: *Note Date: 08/13/2005 *Problem Name: Contract *ICD-10 Codes: *Problem Status: inactive *Comments: *Problem Code Type: CPT *Note Date: 08/13/2005 Problem Notes None recorded. Procedures Surgical History Date Name Laterality Status Provider Name and Address Organization Details Recorded Time 2 total knee replacement completed LIGIA GRANDE, [place] [facility] 08/22/2023 08:43:12 Imaging Results None recorded. Procedure Notes None recorded. Medical Equipment None Reported. Allergies Allergen ID Allergen Name Allergen Category Reaction Reaction Severity Criticality Documentation Date Start Date Code Code System Note Provider Name and Address Organization Details Recorded Time 21774 Plavix medicatio n rash mild Not available 06/03/20232016 67285 2 RxNorm itchy rash Aller gyRea ction : 'itch y rash' ; Not Available [facility] 3 16:07:13 67134 buspirone hydrochlo ride medicatio n other mild Not available 06/03/20232011 20414 6 RxNorm night ballard Aller gyRea ction : 'nigh tmare s'; Not Available [facility] 3 16:07:13 67605 Elavil medicatio n other mild Not available 06/03/20232012 41316 RxNorm night ballard Aller gyRea ction : 'nigh tmare s'; Not Available [facility] 3 16:07:13 04372 codeine medicatio n rash mild Not available 06/03/20232010 2670 RxNorm Rash Aller gyCod e: '0040 08364 32'; Aller gyNam e: 'CODE INE'; Aller gyCon ceptT ype: 'NDC' ; Not Available [facility] 3 16:07:14 Medications Name Sig Start Date [...] Updated DateTime 4 160.02 cm 23.9 kg/m2 08198.9 7 g 98 % 98 % 85 /min 157 mm[Hg] 86 mm[Hg] Luis Dougherty [facility] 08:35:24 Social History Question Answer Notes LastModified by Organizat ion Details LastModified Time Tobacco Smoking Status Current Every Day Smoker LIGIA GRANDE, [facility] 08/22/2023 08:42:40 1) Date Of Last VPMS [...] Recorded Time Tdap 01/12/2017 completed Not Available [facility] 06:12:07 COVID-19, mRNA, LNP-S, PF, 30 mcg/0.3 mL dose 07/20/2021 completed Not Available [facility] 06/03/2023 06:12:07 COVID-19 vaccine, vector-nr, rS-Ad26, PF, 0.5 mL 02/08/2021 completed Not Available [facility] 06/03/2023 06:12:07 COVID-19, mRNA, LNP-S, PF, pilar-sucrose, 30 mcg/0.3 mL 05/23/2023 completed Not Available [facility] 08/05/2023 05:31:24 Past Encounters Encounter ID Performer Location Encounter Start Date Encounter Closed Date Diagnosis/Indication Diagnosis SNOMED-CT Code [id number] FAYE ECHAVARRIA MD [address] [address] 02/29/2024 08:17:36 02/29/2024 09:18:06 Persistent cough [id number] Low back pain [id number] Health Concerns Section Related Observation LastModified by Organization Detai ls LastModified Time None Recorded Concern Status LastModified by Organization Details LastModified Time None Recorded Payers Encounter Date Sequence Insurance Name Policy Number Policy Portillo Covered Member ID Portillo Member ID Guarantor Name 02/29/2024 1 [place] [employer] Taurus Meraz [id number] Taurus Meraz 02/29/2024 2 [facility] (MEDICAID) Taurus Meraz [id number] Taurus Meraz Notes Date Note Type Note Provider Name and Address Organization Details Recorded Time 02/29/2024 text/html HPI Notes: Lai tavera comes [...] a dentist he had seen one in [place] a year ago but unfortunately that is been difficult to get into. And he has not really pursued that. He denies any bloody stools or black tarry stools he has not having any epigastric pain. He has a lot of general malaise. He states he starts the morning by coughing up copious amounts of thick mucus. FAYE ECHAVARRIA MD [address], [place], [address], [facility]. 02/29/2024 09:16:45
--- OUTSIDE RECORDS SUMMARY | 2024-03-07 01:24 | XMS_ITS | Clinical Summary ---
Author Organization [facility] Address [address] [place] [address] Care Team Providers Care Order Processing Specialist Name Role Phone Unknown, Provider Primary Care Provider Social History Tobacco Use Types Packs/Day Years Used Date Smoking Tobacco: Never Assessed Sex and Gender Information Value Date Recorded Sex Assigned at Not on file Gender Identity Not on file Sexual Orientation Not on file Plan of Treatment Health Maintenance Due Date Last Done Comments Hepatitis C Screen 1965 Hepatitis B Vaccine (1 of 3 - 19+ 3-dose series) 09/30 COVID-19 Vaccine (2022-24 season) 2023 Care Teams Order Processing Specialist Relationship Specialty Start Date End Date Unknown, Provider, PCP - General 06/03/15
--- OUTSIDE RECORDS SUMMARY | 2024-03-07 01:24 | XMS_ITS | Encounter Summary ---
[place] [address] Care Team Providers Care Content Specialist Name Role Phone Faye Echavarria MD Primary Care Provider [phone] Encounter Details Date Type Department Care Team (Late st Contact Info) Description 03/25/2017 Telephone [place] [address] Saud Lemos Social History Tobacco Use Types Packs/Day Years [...] on file documented as of this encounter Miscellaneous Notes * Telephone Encounter - Saud Lemos - 03/25/2017 11:58 AM EDT Taurus Meraz :1965 Message left: I left a message on answering machine Mr. Meraz at 11:58 AM regarding his upcoming Right transforaminal injection with Dr. Elieser Nieves MD. Message included the followin. 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 2. Following instructions left in the message: - Bring Updated list of medications including dosage and reason for taking. - Call the Pain Clinic Nurse at for: ~Procedure instructions. ~If you are taking antibiotics. ~If you have any signs or symptoms of infection, cold or flu. ~If you have any skin breakdown (rashes, cysts, or abscess.) ~If you are taking anticoagulants / blood thinners (Plavix, Pletal, Lovenox, Coumadin, etc). ~If you had any steroid injections anywhere in your body within the last two weeks? Mar documented in this encounter Plan of Treatment Not on file documented as of this encounter Visit Diagnoses Not on filedocumented in this encounter Care Teams Content Specialist Relationship Specialty Start Date End Date Faye Echavarria MD [address] [place] [address] PCP - General Family Medicine 12/22/16 documented as of this encounter
--- OUTSIDE RECORDS SUMMARY | 2024-03-07 01:24 | XMS_ITS | Encounter Summary ---
Author Organization [facility] [place] [address] Care Team Providers Care Animal Rides Manager Name Role Phone Faye Echavarria MD Primary Care Provider Encounter Details Date Type Department Care Team (Late st Contact Info) Description 02/08/2017 Orders [place] [address] Jannette Pizano RN Hx of Arteriovenous fistula, right lower extremity; Hx of Pseudoaneurysm, right lower extremity Social History Tobacco [...] as of this encounter Visit Diagnoses Diagnosis Hx of Arteriovenous fistula, right lower extremity Arteriovenous fistula, acquired Hx of Pseudoaneurysm, right lower extremity Aneurysm of unspecified site documented in this encounter Care Teams Animal Rides Manager Relationship Specialty Start Date End Date Faye Echavarria MD [address] [place] [address] PCP - General Family Medicine 12/22/16 documented as of this encounter
--- OUTSIDE RECORDS SUMMARY | 2024-03-07 01:24 | XMS_ITS | Encounter Summary ---
Author Organization [facility] [place] [address] Care Team Providers Care Area Counselor Name Role Phone Faye Echavarria MD Primary Care Provider [phone] Reason for Referral * Diagnostic Test (Routine) - Closed Specialty Diagnoses / Procedures Referred By Contac t Referred To Contact Radiology Diagnoses Chronic right-sided low back pain with right-sided sciatica Weakness of right leg Procedures MRI Lumbar Spine wo Contrast (Generic) Dawood Reed PA [facility] [place] [address] [facility] [place] [address] Referral ID Status Reason Start Date Expiration Date V isits Requested Visits Authorized [id number] Closed Specialty Service Requested 02/08/2017 02/08/2018 1 1 Reason for Visit * Reason Comments Back Pain Right Leg Pain * Consultation (Routine) - Closed Specialty Diagnoses / Procedures Referred By Contac t Referred To Contact Orthopaedics Diagnoses chronic right leg pain/ MRI 2001 Faye Echavarria MD [address] [place] [address] [facility] [address] [address] [place] [address] Referral ID Status Reason Start Date Expiration Date V isits Requested Visits Authorized [id number] Closed [facility] 01/13/2017 01/13/2018 1 1 Encounter Details Date Type Department Care Team (Late st Contact Info) Description 02/08/2017 10:00 AM EDT Office Visit Spine Center [place] [address] Dawood Reed PA [facility] [place] [address] Chronic right-sided low back pain with right-sided sciatica; Weakness of right leg Social History Tobacco Use Types Packs/Day Years [...] Progress Notes * Dawood Reed PA - 02/08/2017 10:00 AM EDT Subjective: Taurus Meraz is a 49-year-old gentleman seen today for chief complaint of chronic back pain and right leg pain and weakness, present over 8 years. He localizes pain over the midline low back going into both buttocks particularly on the right, and he otherwise reports a diffuse pattern of circumferential right leg pain and altered sensation which is felt over the knee to the foot. He finds that 50% of complaints are with his back and 50% better with his right leg. At times he also has pain on his left leg. He has a sense of weakness with his right leg, some of which she attributes to prior history of right ankle surgery performed about 5 or 6 years ago without outside facility. He underwent vascular surgery for his right leg about 1 month ago, with findings of a pseudoaneurysm, and he finds that his symptoms with the right leg have not really improved following the surgery. Review of systems is negative for GI, , constitutional symptoms. His prior treatments have included physical therapy in the past, he uses marijuana on his own with some minimal improvement. He also mentions taking gabapentin with some relief of his burning sensation of the leg, but not much improvement of his pain. He denies prior spine surgeries. He continues to smoke one and a half pack per day. He denies alcohol use. He has been on Social Security for several years. He lives in [facility]. Objective: This is a thin 51-year-old gentleman appears his stated age and is no acute distress. His gait is antalgic on the right side and walks with a limp on the right. He is able to toe walk without much difficulty, has issues heel walking on the right, no issues on the left. His low backs otherwise unremarkable to inspection, showing normal alignment and no obvious deformity. Lumbar flexion to about 50??, lumbar extension to neutral with worsening back pain at both end ranges. His motor examination is significant for 3/5 strength on the right ankle dorsiflexor, otherwise full strength ofthe lower extremities. Sensory examination to light touch is without focal deficits. His reflexes are absent at the right knee, +2 at the left knee, +1 at both ankles. Positive straight leg raising on the right side for pain over the right calf. There is no clonus or Babinski. Palpable peripheral pulses. Most recent MRI available for review today is from 2012, this shows a lower lumbar degenerative changes, with facet arthropathy, broad-based disc bulging, and disc degeneration. The central canal is widely patent throughout. There is small right paracentral disc protrusion at the L4-L5 on the rightside, with a patent right-sided foramina, and no impingement of the traversing nerve root, on either side, and no significant central canal stenosis. Assessment/plan: Taurus Meraz is a 49-year-old gentleman seen today for chief complaint of backpain in the persistent right lower extremity pain, status post vascular surgery on the right leg, for a pseudoaneurysm but without any meaningful improvement of his right leg symptoms. His pain on the right lower extremity is quite diffuse and not entirely radicular in its distribution. He does however have her neurological examination concerning for some weakness of the ankle, and an absent right patellar reflex. His prior MRI however did not really show any concerning neurological impingement, and certainly no indications for surgical intervention. He has otherwise had limited response to conservative treatment options in the past. We had a discussion about reevaluating if there is lumbosacral radiculopathy or stenosis otherwise accounting for her symptoms. We will have him repeat his lumbar spine MRI he will discuss with myself treatment options afterwards. I advised him that if his right leg symptoms are not really accounted for by his lumbar spine MRI, and a ready has had minimal response to revascularization surgery on the right side, that it is highly unlikely that we would be able to offer a solution with regards tohis right leg. We did discuss the option of considering various pain clinic procedures to help manage some of his symptoms, and he may perhaps be a good candidate for considering physical conditioning, rehabilitation program in the future. We did have a discussion regarding smoking cessation, which the patient acknowledges and mentions that he is making his best efforts, although he still remains with one and half pack per day tobacco use. documented in this encounter Plan of Treatment Not on file documented as of this encounter Results * MRI Lumbar Spine [...] in context of the clinical situation (Reference- Jarvik et al, Spine 2001). Findings: (Prevalence in [...] in context of the clinical situation (Reference- Jarvik et al, [id number]). Findings: (Prevalence in patients without low back pain), discdegeneration (decreased T2 signal, height loss, bulge) (91%), disc T2-signal loss(83%), disc height loss (56%), disc bulge (64%), disc protrusion (32%), annularfissure (38%). Darrick A Abdu MD IMG MRI ORDERABLES documented in this encounter Visit Diagnoses Diagnosis Chronic right-sided low back pain with right-sided sciatica Weakness of right leg Other musculoskeletal symptoms referable to limbs Chronic right-sided low back pain with right-sided sciatica Weakness of right leg Other musculoskeletal symptoms referable to limbs documented in this encounter Care Teams Area Counselor Relationship Specialty Start Date End Date Faye Echavarria MD [address] [place] [address] PCP - General Family Medicine 12/22/16 documented as of this encounter
--- OUTSIDE RECORDS SUMMARY | 2024-03-07 01:25 | XMS_ITS | Encounter Summary ---
Author Organization [facility] Address [facility] [place] [address] Care Team Providers Care Legal Aide Name Role Phone Dionne Crawley MD Primary Care Provider [phone] Encounter Details Date Type Department Care Team (Late st Contact Info) Description 03/14/2013 [address] [facility] [place] [place] [id number] Faye Olivares, RN Social History Tobacco Use Types Packs/Day Years Used Date Smoking Tobacco: Every Day Cigarettes 1 25 Smokeless Tobacco: Never Comments:avs information giv en Alcohol Use Standard Drinks/Week Comments Yes 0 (1 standard drink = 0.6 oz pur e alcohol) occasionally Sex and Gender Information Value Date Recorded Sex Assigned at Not on file Gender Identity Not on file Sexual Orientation Not on file documented as of this encounter Miscellaneous Notes * Telephone Encounter - Faye Olivares RN - 03/14/2013 1:46 PM EDT Taurus Meraz :1965 Message left: I left a message on answering machine Mr. Meraz at 1:48 PM regarding his upcoming lumbar medial branch block with Dr. Aarti Rivera MD. Message included the followin. Patient to bring updated list of medications including dosage and reason for taking. 2. Call the Pain Clinic Triage Nurse for procedure instructions. 3. Instructed to arrive at 1415 (30 minutes prior to procedure start time) on 03/16/13 (date of procedure) with their service car driver. Faye Olivares RN documented in this encounter Plan of Treatment Not on file documented as of this encounter Visit Diagnoses Not on filedocumented in this encounter Care Teams Legal Aide Relationship Specialty Start Date End Date Dionne Crawley MD [address] [place] [address] PCP - General 06/16/10 11/30/16 documented as of this encounter
--- OUTSIDE RECORDS SUMMARY | 2024-03-07 01:25 | XMS_ITS | Encounter Summary ---
Author Organization [facility] Address [facility] [place] [address] Care Team Providers Care President Celebrity Acquistion Name Role Phone Dionne Crawley MD Primary Care Provider [phone] Encounter Details Date Type Department Care Team (Latest Contact Info) Description 02/06/2013 7:35 AM EDT - 02/06/2013 11:59 PM EDT Hospital Encounter MRI at [facility], [place], operated [place] [id number] Chronic back pain Social History Tobacco Use Types Packs/Day Years [...] Sig Dispensed Refills Start Date End Date cyclobenzaprine (FLEXERIL) 10 mg tablet Take 10 mg by mouth 3 times daily as needed. 04/18/2013 documented as of this encounter Miscellaneous Notes * Miscellaneous - Provider, Scanning - 02/12/2013 8:18 AM EDT documented in this encounter Plan of Treatment Not on file documented as of this encounter Procedures Procedure Name Priority Date/Time Associated Diagnosis Comments MRI LUMBAR SPINE WITHOUT CONTRAST Routine 02/06/2013 8:33 AM EDT Chronic back pain documented in this encounter Results * MRI lumbar spine without contrast (02/06/2013 8:33 AM EDT) Anatomical Region Laterality Modality L-spine Magnetic Resonan ce 02/06/2013 8:33 AM EDT Narrative 02/06/2013 8:41 AM EDT Examination MR Lumbar Spine WO Clinical History low back pain ?? r/o facet arthropathy Technique The study is done without contrast. Comparison None. Findings Advanced degenerative narrowing is seen at the L4-L5 and L5-L1 discs. ??Lesser narrowing is seen at the higher levels. There is some mild L4 on L5 retrolisthesis at this level and there is a suspicion of a small extruded disc fragment seen right paracentral behind the posterior superior corner of L5. ??A small right paracentral protrusion is present at L5-S1. ??Foramina at L5-S1 are severely narrowed bilaterally. Those at L4-L5 are only mildly narrowed. ??There is also some disc bulging at L3-L4 with what is probably a small annular fissure. ??The conus is normal in position. ??No obvious prevertebral soft tissue pathology is seen. Impression Advanced degenerative change at L4-L5 and L5-S1 is noted. ??Small right paracentral disc extrusion at L4-L5. Comment: The following findings are so common in people without low back pain that while we report their presence, they must be interpreted with caution and in the context of the clinical situation. (Reference-Mariannek et al, Spine 2001) Findings: (prevalence in patients without low back pain), Disk degeneration (decreased T2 signal, height loss, bulge) (91%), Disk T2-signal loss (83%), Disk height loss (56%), Disk bulge (64%), Disk protrusion (32%), Annular fissure (38%). Procedure Note Isaac Mcgill MD - 02/06/2013 Examination MR Lumbar Spine WO Clinical History low back pain r/o facet arthropathy Technique The study is done without contrast. Comparison None. Findings Advanced degenerative narrowing is seen at the L4-L5 and L5-L1 discs.Lesser narrowing is seen at the higher levels. There is some mild L4 on L5 retrolisthesis at this level and there is a suspicion of a small extrudeddisc fragment seen right paracentral behind the posterior superior corner ofL5. A small right paracentral protrusion is present at L5-S1. Foramina at L5-S1are severely narrowed bilaterally. Those at L4-L5 are only mildly narrowed.There is also some disc bulging at L3-L4 with what is probably a small annular fissure. The conus is normal in position. No obvious prevertebral softtissue pathology is seen. Impression Advanced degenerative change at L4-L5 and L5-S1 is noted. Small right paracentral disc extrusion at L4-L5. Comment: The following findings are so common in people without low backpain that while we report their presence, they must be interpreted with cautionand in the context of the clinical situation. (Reference-Shawna et al, [id number]) Findings: (prevalence in patients without low back pain), Diskdegeneration (decreased T2 signal, height loss, bulge) (91%), Disk T2-signal loss(83%), Disk height loss (56%), Disk bulge (64%), Disk protrusion (32%), Annular fissure (38%). Alonzo Wu MD IMG MRI ORDERABLES documented in this encounter Visit Diagnoses Diagnosis Chronic back pain Backache, unspecified documented in this encounter Care Teams President Celebrity Acquistion Relationship Specialty Start Date End Date Dionne Crawley MD [address] [place] [address] PCP - General 06/16/10 11/30/16 documented as of this encounter
--- OUTSIDE RECORDS SUMMARY | 2024-03-07 01:25 | XMS_ITS | Encounter Summary ---
Author Organization [facility] [place] [place] [address] Care Team Providers Care Exploration Engineer Name Role Phone Faye Echavarria MD Primary Care Provider [phone] Reason for Referral * Diagnostic Test (Routine) - Closed Specialty Diagnoses / Procedures Referred By Contac t Referred To Contact Radiology Diagnoses AV fistula Procedures CT Angiogram Aorta Lower Extremity Runoff [facility] [address] [place] [id number] [facility] [place] [address] Referral ID Status Reason Start Date Expiration Date V isits Requested Visits Authorized [id number] Closed Specialty Service Requested 12/02/2016 12/02/2017 1 1 Reason for Visit * Diagnostic Test (Routine) - Closed Specialty Diagnoses / Procedures Referred By Contac t Referred To Contact Radiology Diagnoses AV fistula Procedures CT Angiogram Aorta Lower Extremity Runoff [facility] [address] [place] [id number] [facility] [place] [address] Referral ID Status Reason Start Date Expiration Date V isits Requested Visits Authorized [id number] Closed Specialty Service Requested 12/02/2016 12/02/2017 1 1 Encounter Details Date Type Department Care Team (Latest Contact Info) Description 12/22/2016 7:42 AM EDT - 12/22/2016 11:59 PM EDT Hospital [place] [address] Brock Arellano MD [facility] [place] [address] AV fistula Discharge Disposition: Home Social History Tobacco Use [...] Sig Dispensed Refills Start Date End Date gabapentin (NEURONTIN) 100 mg Capsule Take 300 mg by mouth 3 times daily. 0 12/17/2016 ibuprofen (ADVIL;MOTRIN) 600 mg Tablet Take 600 mg by mouth as needed. Reported on 01/07/2017 0 2016 01/07/2017 predniSONE (DELTASONE) 10 mg Tablet Take 10 mg by mouth daily. 12/28/2016 documented as of this encounter Plan of Treatment Not on file documented as of this encounter Procedures Procedure Name Priority Date/Time Associated Diagnosis Comments CT ANGIOGRAM AORTA LOWER EXTREMITY RUNOFF Routine 12/22/2016 8:17 AM EDT AV fistula documented in this encounter Results * CT Angiogram Aorta Lower Extremity Runoff (12/22/2016 8:17 AM EDT) Anatomical Region Laterality Modality Abdomen Computed Tomogra phy Impressions 12/22/2016 9:12 AM EDT 1. 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 This results in tortuosity and dilatation of multiple deep and superficial veins in the mid and upper right calf. There is also a focal outpouching of contrast that has the typical appearance of a pseudoaneurysm however it appears to originate from a small venous branch. 2. ??Incidental 43 mm well-circumscribed mass in the subcutaneous fat of the right abdomen. This is not consistent with a simple cyst as it is slightly high density, however could be a sebaceous cyst. Clinical correlation is needed. 3. ??Post traumatic changes in the distal right fibula and calcaneus. 4. ??Heterogeneous bone marrow in the distal right femoral metaphysis is of uncertain significance. If there is right knee pain recommend radiographs for further evaluation. Narrative 12/22/2016 9:12 AM EDT EXAMINATION: CT ANGIOGRAM AORTA LOWER EXTREMITY RUNOFF CLINICAL HISTORY: Right calf AV fistula TECHNIQUE: Helical CTA of the abdomen, pelvis and lower extremities was performed following intravenous administration of 120cc of Omnipaque 350. MPRs were performed. 3-D images were generated on an independent workstation. COMPARISON: Right foot radiographs 07/04/2012 FINDINGS: VASCULAR FINDINGS Abdominal aorta: No stenosis or aneurysm. Celiac: No stenosis. SMA: No stenosis. Right renal artery: No stenosis. Left renal artery: Dual left renal arteries are widely patent. ERICA: No stenosis. RIGHT LOWER EXTREMITY Common iliac artery: Widely patent. External iliac artery: Widely patent. Internal iliac artery: Widely patent. Common femoral artery: Widely patent. Superficial femoral artery: Widely patent. Profundus femoral artery: Widely patent. Popliteal artery: Widely patent Anterior tibial artery: Widely patent and normal caliber. Tibio-peroneal trunk: Larger than normal caliber. On series 8 image 814, communication is noted between a vein and the tibioperoneal trunk. At and below this level, within the upper and mid calf, there are numerous dilated deep and to a lesser extent superficial veins likely secondary to exposure to arterial pressure and some retrograde flow. As a result, there is early filling of the popliteal vein, which is dilated to 17 mm transverse dimension, with early filling of the superficial femoral and external iliac veins. Profunda venous branches and greater saphenous veins fill normally. Posterior tibial artery: Normal caliber, widely patent. There is no filling of the popliteal veins in the distal third of the horn or ankle. Peroneal artery: Normal caliber, widely patent. No venous filling identified in the distal third of the horn or ankle. Dorsalis pedis: Widely patent. Plantar arteries: Widely patent. Veins: Early filling of multiple dilated deep and superficial veins throughout the mid and distal right calf due to an arterial venous fistula with the tibioperoneal trunk, as described above. Immediately below above the fistula, series 8 image [phone], there is a rounded collection of contrast that has the appearance of the pseudoaneurysm, measuring 31 x 32 mm with mural thrombus and central filling. This communicates via a thin neck (series 8 image 813) to a small venous branch. LEFT LOWER EXTREMITY Common iliac artery: Moderate atherosclerosis in the mid vessel with mild stenosis. External iliac artery: Widely patent. Internal iliac artery: Widely patent. Common femoral artery: Widely patent. Superficial femoral artery: Widely patent. Profundus femoral artery: Widely patent. Popliteal artery: Widely patent Anterior tibial artery: Widely patent. Tibio-peroneal trunk: Widely patent. Posterior tibial artery: Widely patent. Peroneal artery: Widely patent. Dorsalis pedis: Widely patent. Plantar arteries: Widely patent. NON-VASCULAR FINDINGS Lower chest: Normal. Liver: Normal. Bile ducts: Nondilated. Gallbladder: No calcified gallstones. Normal caliber wall. Pancreas: Normal attenuation without ductal dilatation. Spleen: Normal. Kidneys/adrenals: Normal adrenal glands and right kidney. There is a less than 1 cm low-attenuation lesion in the lower pole of the left kidney that is too small to characterize however statistically likely a cyst. Urinary Bladder: Normal. Lymph Nodes: No enlarged lymph nodes. Bowel: No dilated loops of small or large bowel or bowel wall thickening Peritoneum and mesentery: Unremarkable. Within the subcutaneous fat of the right mid abdomen there is a 26 x 43 mm well-circumscribed structure measuring 31 Hounsfield units. Osseous structures: Moderate degenerative disc disease L4/5-L5/S1. There is mildly heterogeneous bone marrow signal in the distal right femoral metaphysis with coarsening of the trabecula.Smooth deformity of the distal right fibula is likely the sequela of prior fracture. There is smooth deformity of the calcaneus related to prior fracture, and there are 2 calcaneotalar screws similar in appearance to prior. There is left greater than right osteoarthritis of the knee with moderate narrowing of the medial left joint space with large osteophytes. There is also a small to moderate left knee joint effusion. Procedure Note Jud Harris MD - 12/22/2016 EXAMINATION: CT ANGIOGRAM AORTA LOWER EXTREMITY RUNOFF CLINICAL HISTORY: Right calf AV fistula TECHNIQUE: Helical CTA of the abdomen, pelvis and lower extremities was performed following intravenous administration of 120cc of Omnipaque 350.MPRs were performed. 3-D images were generated on an independent workstation. COMPARISON: Right foot radiographs 07/04/2012 FINDINGS: VASCULAR FINDINGS Abdominal aorta: No stenosis or aneurysm. Celiac: No stenosis. SMA: No stenosis. Right renal artery: No stenosis. Left renal artery: Dual left renal arteries are widely patent. ERICA: No stenosis. RIGHT LOWER EXTREMITY Common iliac artery: Widely patent. External iliac artery: Widely patent. Internal iliac artery: Widely patent. Common femoral artery: Widely patent. Superficial femoral artery: Widely patent. Profundus femoral artery: Widely patent. Popliteal artery: Widely patent Anterior tibial artery: Widely patent and normal caliber. Tibio-peroneal trunk: Larger than normal caliber. On series 8 image 814, communication is noted between a vein and the tibioperoneal trunk. At andbelow this level, within the upper and mid calf, there are numerous dilated deepand to a lesser extent superficial veins likely secondary to exposure toarterial pressure and some retrograde flow. As a result, there is early filling ofthe popliteal vein, which is dilated to 17 mm transverse dimension, withearly filling of the superficial femoral and external iliac veins. Profundavenous branches and greater saphenous veins fill normally. Posterior tibial artery: Normal caliber, widely patent. There is nofilling of the popliteal veins in the distal third of the horn or ankle. Peroneal artery: Normal caliber, widely patent. No venous fillingidentified in the distal third of the horn or ankle. Dorsalis pedis: Widely patent. Plantar arteries: Widely patent. Veins: Early filling of multiple dilated deep and superficial veinsthroughout the mid and distal right calf due to an arterial venous fistula with the tibioperoneal trunk, as described above. Immediately below above thefistula, series 8 image [id number], there is a rounded collection of contrast that hasthe appearance of the pseudoaneurysm, measuring 31 x 32 mm with mural thrombusand central filling. This communicates via a thin neck (series 8 image 813) toa small venous branch. LEFT LOWER EXTREMITY Common iliac artery: Moderate atherosclerosis in the mid vessel withmild stenosis. External iliac artery: Widely patent. Internal iliac artery: Widely patent. Common femoral artery: Widely patent. Superficial femoral artery: Widely patent. Profundus femoral artery: Widely patent. Popliteal artery: Widely patent Anterior tibial artery: Widely patent. Tibio-peroneal trunk: Widely patent. Posterior tibial artery: Widely patent. Peroneal artery: Widely patent. Dorsalis pedis: Widely patent. Plantar arteries: Widely patent. NON-VASCULAR FINDINGS Lower chest: Normal. Liver: Normal. Bile ducts: Nondilated. Gallbladder: No calcified gallstones. Normal caliber wall. Pancreas: Normal attenuation without ductal dilatation. Spleen: Normal. Kidneys/adrenals: Normal adrenal glands and right kidney. There is a lessthan 1 cm low-attenuation lesion in the lower pole of the left kidney that is toosmall to characterize however statistically likely a cyst. Urinary Bladder: Normal. Lymph Nodes: No enlarged lymph nodes. Bowel: No dilated loops of small or large bowel or bowel wall thickening Peritoneum and mesentery: Unremarkable. Within the subcutaneous fat of the right mid abdomen there is a 26 x 43mm well-circumscribed structure measuring 31 Hounsfield units. Osseous structures: Moderate degenerative disc disease L4/5-L5/S1. Thereis mildly heterogeneous bone marrow signal in the distal right femoralmetaphysis with coarsening of the trabecula.Smooth deformity of the distal rightfibula is likely the sequela of prior fracture. There is smooth deformity of thecalcaneus related to prior fracture, and there are 2 calcaneotalar screws similarin appearance to prior. There is left greater than right osteoarthritis of the knee withmoderate narrowing of the medial left joint space with large osteophytes. There isalso a small to moderate left knee joint effusion. IMPRESSION 1. 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 This results in tortuosity and dilatationof multiple deep and superficial veins in the mid and upper right calf. Thereis also a focal outpouching of contrast that has the typical appearance ofa pseudoaneurysm however it appears to originate from a small venousbranch. 2. Incidental 43 mm well-circumscribed mass in the subcutaneous fat ofthe right abdomen. This is not consistent with a simple cyst as it is slightlyhigh density, however could be a sebaceous cyst. Clinical correlation isneeded. 3. Post traumatic changes in the distal right fibula and calcaneus. 4. Heterogeneous bone marrow in the distal right femoral metaphysis isof uncertain significance. If there is right knee pain recommend radiographsfor further evaluation. Brock Arellano MD [facility] CT ORDERABLES documented in this encounter Visit Diagnoses Diagnosis AV fistula Arteriovenous fistula, acquired documented in this encounter Administered Medications Inactive Administered Medications - up to 3 most recent administrations Medication Order MAR Action Action Date Dose Rate Site iohexol (OMNIPAQUE) 350 mg/mL solution 42,000 mg 42,000 mg (120 mL), Intravenous, ONCE PRN, 1 dose, Starting on Tue12/22/16 at 0821, Until Tue12/22/16 at 0822, Per Protocol, Warning Vesicant/Irritant Medication , Routine Given 12/22/2016 8:22 AM EDT 42,000 mg documented in this encounter Care Teams Exploration Engineer Relationship Specialty Start Date End Date Faye Echavarria MD [address] [place] [address] PCP - General Family Medicine 12/22/16 documented as of this encounter
--- OUTSIDE RECORDS SUMMARY | 2024-03-07 01:25 | XMS_ITS | Encounter Summary ---
Author Organization [facility] [place] [address] Care Team Providers Care Orthodontist Small Business Owner Name Role Phone Unknown Primary Care Provider Unavailabl e Reason for Visit * Consultation (Routine) - Closed Specialty Diagnoses / Procedures Referred By Evelina t Referred To Contact Vascular Surgery Diagnoses Popliteal pseudoaneurysm Jian Michael MD [address] [place] [address] [facility] [address] [place] [address] Referral ID Status Reason Start Date Expiration Date V isits Requested Visits Authorized [id number] Closed Consult, Test & Treat 11/22/2016 11/22/2017 2 2 Encounter Details Date Type Department Care Team (Latest Contact Info) Description 12/01/2016 10:27 AM EDT - 12/01/2016 11:59 PM EDT Hospital Encounter [place] [address] Maya Mahmood, RVT Pseudoaneurysm Discharge Disposition: Home Social History Tobacco Use [...] Sig Dispensed Refills Start Date End Date ibuprofen (ADVIL;MOTRIN) 600 mg Tablet Take 600 mg by mouth as needed. Reported on 01/07/2017 0 2016 01/07/2017 documented as of this encounter Plan of Treatment Not on file documented as of this encounter Procedures Procedure Name Priority Date/Time Associated Diagnosis Comments ARTERIAL DUPLEX LEG UNILA Routine 12/01/2016 10:38 AM EDT Pseudoaneurysm documented in this encounter Results * Arterial Duplex Leg, Unil (12/01/2016 10:38 AM EDT) VB Text Report Department: Vascular Surgery Lab Patient: [id number] (TAURUS BURGOS) CPT: 28084 ICD10: I72.9;S85.891A Referring Physician: ORLY FLEMING ?? Indications: Right PSA proximal calf (OSH), ? PSA location ICD10 Diagnosis Code: I72.9, S85.891A Findings: Right ? PSV (cm/s) ??EDV ?? Superficial Femoral Artery, Mid ?198 ?? 91 ?? Superficial Femoral Artery, Distal ? 188 ?? 98 ?? Popliteal Artery, Above Knee ? 175 ?? 95 ?? Popliteal Artery, Mid ?214 ?? 98 ?? Popliteal Artery, Below Knee ? 191 ?? 95 ?? Interpretation: Patent right superficial femoral artery and popliteal artery with monophasic Doppler waveforms. The popliteal vein is patient, with pulsatile/fistuliz ed venous flow, consistent with a more proximal arteriovenous malformation. A patent aneurysm or pseudoaneurysm was visualized in the proximal medial calf, near the tibioperoneal trunk trifurcation. It measures approximately 3.6 x 2.9 x 2.8 cm. The exact origin of the PSA was not identified, however a possible neck (approximately 4 mm in diameter) was visualized with turbulent to-fro flow (PSV 460 cm/sec). There is an AVM distal to the PSA, originating from what appears to be the peroneal artery and vein. Comparison: ??No previous study in our vascular lab database for comparison. Notification: Dr. Estrada was informed of these preliminary findings. Electronically Signed by: CHRISTIANE ESTRADA on 2016-12-02 05:53:17 PM [facility] VB Text Report End of Report [facility] 12/01/2016 10:3 8 AM EDT Orly Fleming MD VASCULAR ORDERABLES [facility] documented in this encounter Visit Diagnoses Diagnosis Pseudoaneurysm Aneurysm of unspecified site documented in this encounter Care Teams Orthodontist Small Business Owner Relationship Specialty Start Date End Date Unknown None PCP - General 12/01/16 12/21/16 documented as of this encounter
--- OUTSIDE RECORDS SUMMARY | 2024-03-07 01:25 | XMS_ITS | Encounter Summary ---
Author Organization [facility] Address [facility] [place] [address] Care Team Providers Care Home Health Nurse Name Role Phone Faye Echavarria MD Primary Care Provider [phone] Encounter Details Date Type Department Care Team (Late st Contact Info) Description 01/03/2017 Orders [place] [address] Noam Can MD [facility] [place] [place] [address] AV fistula Social History Tobacco Use Types Packs/Day Years [...] documented as of this encounter Results * Arterial Duplex Leg, Unil (01/07/2017 12:35 PM EDT) VB Text Report Department: Vascular Surgery Lab Patient: [id number] (TAURUS BURGOS) CPT: 73307 ICD10: I77.0 Referring Physician: CHRISTIANE ESTRADA ?? Indications: ??Left groin pain s/p left groin access, ? pseudoaneurysm ICD10 Diagnosis Code: I77.0 Findings: Left ?PSV (cm/s) ??EDV ?? Common Femoral Artery, Mid ?99 ?0 ?? Profunda Femoris Artery, Proximal ? 61 ?0 ?? Superficial Femoral Artery, Proximal ?92 ?0 ?? Interpretation: Widely patent LEFT common femoral artery, femoral bifurcation and and common femoral vein with normal Doppler waveforms. No evidence of a pseudoaneurysm or a-v fistula was identified. Electronically Signed by: GAL POWELL on 2017-01-07 05:19:22 PM [facility] VB Text Report End of Report [facility] 01/07/2017 12:3 5 PM EDT Christiane Estrada MD VASCULAR ORDERABLES Performing Organization Address City/State/[facility] Co de Phone Number [facility] documented in this encounter Visit Diagnoses Diagnosis AV fistula Arteriovenous fistula, acquired documented in this encounter Care Teams Home Health Nurse Relationship Specialty Start Date End Date Faye Echavarria MD [address] [place] [address] PCP - General Family Medicine 12/22/16 documented as of this encounter
--- OUTSIDE RECORDS SUMMARY | 2024-03-07 01:25 | XMS_ITS | Encounter Summary ---
Author Organization [facility] [place] [address] Care Team Providers Care Shorts Sifter Name Role Phone Dionne Crawley MD Primary Care Provider [phone] Encounter Details Date Type Department Care Team (Late st Contact Info) Description 02/08/2013 Notes [place] [address] Tanya Ryaa, RN Social History Tobacco Use Types Packs/Day [...] as of this encounter Progress Notes * Tanya Raya, RN - 02/08/2013 8:52 AM EDT 01/1712 Received letter dated 02/06/13 from Azam West Esq requesting medical statement On a Functional Capasity Evaluation performed 01/22/13 by Brock Jonas, BEULAHR/L @ Workability (FCE enclosed). Statement as requested pertains to pt's upcoming SS disability hearing in Early February. Letter as received presented to Dr Wu for review 02/08 (first day in clinic following receipt ofdocument). Awaiting direction from Dr Wu for processing. 02/08/13 call placed to Mckayla West on Dr Figueroa's behla advising that Dr wu was declineing to make a statement as requested re FCE/for SSD hearing. Explained that we typically use the specialists in [facility] for such statements determinations; suggesting that Mckayla West contact [facility] to seek appt/eval/statement. documented in this encounter Plan of Treatment Not on file documented as of this encounter Visit Diagnoses Not on filedocumented in this encounter Care Teams Shorts Sifter Relationship Specialty Start Date End Date Dionne Crawley MD [address] [place] [address] PCP - General 06/16/10 11/30/16 documented as of this encounter
--- OUTSIDE RECORDS SUMMARY | 2024-03-07 01:25 | XMS_ITS | Encounter Summary ---
Author Organization [facility] Address [facility] [place] [address] Care Team Providers Care Ore Puncher Name Role Phone Dionne Crawley MD Primary Care Provider [phone] Reason for Visit * Reason Comments Right Foot Pain S/P TWO SURGERIES OU TSIDE Encounter Details Date Type Department Care Team (Late st Contact Info) Description 07/04/2012 1:35 PM EST Office [place] [address] Arthur Murphy MD [facility] [place] [address] Patrick Zuniga, PA [address] [place] [address] 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 Pulse 96 07/04/2012 2:09 PM EST Temperature - - Respiratory Rate - - Oxygen Saturation - - Inhaled Oxygen Concentration - - Weight 68 kg (150 lb) 07/04/2012 2:09 PM EST Height 162.6 cm (5' 4) 07/04/2012 2:09 PM EST Body Mass Index 25.75 07/04/2012 2:09 PM EST documented in this encounter Progress Notes * Patrick Zuniga PA - 07/04/2012 2:21 PM EST PATIENT NAME: Taurus Meraz AGE: 46 y.o. MR#: [id number] DATE OF VISIT: 07/04/2012 DATE OF INJURY/ONSET: 2.5 years agoe STAFF: The patient was seen and the plan was formulated in conjunction with Dr. Murphy. CHIEF COMPLAINT: right foot pain HISTORY OF PRESENT ILLNESS Mr. Meraz a 46 y.o. year old male comes into clinic today for right foot pain. He reports that 2.5 years ago fractured his calcaneous. He reports that he was on a ladder and it slid down and he landed on his heal A few months after the fracture he had surgery, performed at [facility] Dr. Crocker, which he felt didn't work so he had a second surgery 9-10 months ago again performed by Dr. Crocekr and he had subtalar fusion. He reports that his symptoms feel worse prior to the last surgery. He has chronic pain of the back and the ankle. He is seen here at the Pain [facility], and they believe that the ankle is causing an exacerbation of the back pain and causing gait a bnormalities. He walks with a cane for support. He reports 8/10 severity of pain worsened with turning the ankle out and with putting weight over the foot. He was doing pool therapy. He had a riser over the heel. He used an ankle brace OTS. He takes Flexeril for his back pain, he finds that Tylenol/NSAIDs do not help his pain. He does nottake any narcotic pain medications. PAST MEDICAL HISTORY: None PAST SURGICAL HISTORY: 2 ankle surgeries, right forearm ORIF FAMILY HISTORY: Cancer SOCIAL HISTORY: Tobacco: 1 ppd x 25 years Alcohol: Occasional Occupation: Unable to work due pain, history of rooking. Current Outpatient Prescriptions on File Prior to Visit Medication Sig Dispense Refill ??? ergocalciferol (ERGOCALCIFEROL) 50,000 unit capsule Take 50,000 Units by mouth once a week. ??? DULoxetine (CYMBALTA) 60 mg capsule Take 60 mg by mouth 2 times daily. ??? cyclobenzaprine (FLEXERIL) 10 mg tablet Take 10 mg by mouth 3 times daily as needed. ??? DISCONTD: VENLAFAXINE HCL (EFFEXOR ORAL) Take 75 mg by mouth daily. ??? DISCONTD: OXYcodone (ROXICODONE) 5 mg immediate release tablet 5 MG = 1 Tablet(s), PO, Q4-6H PRN ??? DISCONTD: gabapentin (NEURONTIN) 100 mg capsule 100 MG = 1 Capsule(s), PO, as directed ??? DISCONTD: propoxyphene-acetaminophen (DARVOCET-N 100) 100-650 mg per tablet 1-2 Tablet(s), PO, Q8H,PRN ??? DISCONTD: traMADol (ULTRAM) 50 mg tablet 50 M-2 Tablet(s), PO, Q4-6H,PRN ROS: negative for fever, chills, chest pain, shortness of breath, nausea or vomiting. PHYSICAL EXAM: Blood pressure 160/90, pulse 96, height 162.6 cm (5' 4), weight 68.04 kg (150 lb). General: alert and oriented. He appears in mild distressand is resting comfortably in a chair in the exam room. Foot Exam Standing alignment reveals flattening of the longitudinal arch on the right when compared to the contralateral. The patient with swelling over the lateral aspect of the ankle there is also a well-healed surgical scar over the lateral ankle no signs of secondary infection. The patient with an antalgic gait walking with a cane. Palpation: ?? Focal Tenderness: the lateral malleolus and subtalar joint and over the peroneal tendons. ?? Nontender to Achilles and Posterior tibia tendon. ROM: He has 70% reduced subtalar ROM on the compared to the contralateral, and this is quite painful forhim. Ankle: Dorsioflexion: neutral on the right Plantar Flexion: 20 deg Motor strength Ankle Dorsioflexion: 4/5 Ankle Plantar Flexion: 4/5 Eversion: 4/5 Inversion: 4/5 Neurovascular Evaluation DP and TP pulses are 1+ The patient with positive Tinel's over the sural nerve. The patient sensation is intact in the deep peroneal, superficial peroneal nerve distributions. RADIOLOGICAL STUDIES: I reviewed 3 View images of the right foot taken today, which showed 2 screwsplaced in the hindfoot through the subtalar joint, the fusion appears to incomplete. ASSESSMENT/PLAN: The patient was seen and the plan was formulated in conjunction with Dr. Murphy. We spent 20 minutes of a 30 minute visit in counseling and discussion regarding his pain. Taurus Meraz is a 46 y.o. male presents to the clinic with right ankle pain with history of a calcaneous fracture s/p subtalar fusion that appears to incompletely fused. We reviewed with him his X-rays and his exam. We discussed conservative management with Donna AFO to reduce the motion of the subtalar joint, where his pain is coming from. A prescription was provided to have the AFO fabricated for him. We discussed surgical intervention of trying to fuse the joint using bone graft from the pelvis and he would have to be able to quit smoking for 3 months prior to surgery to give him thebest chance at healing. The patient was not interested in pursuing surgery at this time. She also has sural nerve paresthesia likely secondary to his prior injury and/or surgeries. We discussed that his PCP may consider the start of Neurontin for symptom relief. The patient inquired about pain management and we discussed that this is more appropriate conversation to have with his PCP. Discussed with patient indications for prompt return or to call the clinic if they have any questions, otherwise they will follow-up PRN and with their PCP as scheduled. 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
--- OUTSIDE RECORDS SUMMARY | 2024-03-07 01:25 | XMS_ITS | Encounter Summary ---
Author Organization [facility] [place] [address] Care Team Providers Care Biomedical Field Service Engineer Name Role Phone Dionne Crawley MD Primary Care Provider [phone] Reason for Referral * Consultation (Routine) - Closed Specialty Diagnoses / Procedures Referred By Evelina gruber Referred To Contact Pain Management Diagnoses Chronic back pain Alonzo Wu MD [facility] [place] [address] [facility] [address] [place] [address] Referral ID Status Reason Start Date Expiration Date V isits Requested Visits Authorized [id number] Closed Consult, Test & Treat 02/15/2013 08/14/2013 1 1 Encounter Details Date Type Department Care Team (Late st Contact Info) Description 02/15/2013 Orders Only [facility] [place] [phone] Alonzo Wu MD [facility] [place] [address] Chronic back pain (Primary Dx) Social History Tobacco Use Types [...] as of this encounter Plan of Treatment Scheduled Referrals Name Type Priority Associated Diagnoses Orde r Schedule Referral to Pain Clinic Outpatient Referral Routine Chronic back pain Ordered: 02/15/2013 documented as of this encounter Visit Diagnoses Diagnosis Chronic back pain- Primary Backache, unspecified documented in this encounter Care Teams Biomedical Field Service Engineer Relationship Specialty Start Date End Date Dionne Crawley MD [address] [place] [address] PCP - General 06/16/10 11/30/16 documented as of this encounter
--- OUTSIDE RECORDS SUMMARY | 2024-03-07 01:25 | XMS_ITS | Encounter Summary ---
Author Organization [facility] [place] [address] Care Team Providers Care Stitching Machine Setter Name Role Phone Dionne Crawley MD Primary Care Provider [phone] Reason for Visit * Reason Comments Low Back Pain Encounter Details Date Type Department Care Team (Late st Contact Info) Description 09/18/2012 10:00 AM EST Office [place] [phone] Justine Bay, PT [facility] Dionne Crawley MD [address] [address] Chronic back pain (Primary Dx) Discharge Disposition: Home Social History Tobacco Use [...] as of this encounter Progress Notes * Justine Bay, PT - 09/18/2012 10:48 AM EST Taurus Meraz was [facility] for a physical [facility] consult at the request of Alonzo Wu M.D. He was seen with the expectations to see if there is anything that can be done from an exercise perspective to ease the pain and improve his ability to function. History of Present Illness: Mr. Meraz reports he had an episode of intolerable low back pain 12 years ago which gradually improved over the course of a few weeks. 2.5 years ago he fell off a ladder and fractured his right calcaneus and experienced a recurrence of his low back pain. He has had 2 surgeries directed to the right foot with the last one being a subtalar fusion. He recently met with Dr. Murphy and was prescribed a [place] AFO related to malunion of the right subtalar joint. The pain has waxed and waned since this time and in essence remains unchanged. Past treatments directed to the back have included pool exercise and medications. Mr. Meraz currently complains of low back pain,right greater than left. The pain is rated 7/10 at its worst and 10/10 at its least. He denies numbness, tingling, and weakness. Symptoms worsen with bending, sitting, walking, lifting, and when lying on the right side. Symptoms ease with standing or lying in the supine position. Sleep is significantly disturbed due to his painful right foot and low back. When asked about a gait or balance disturbance he reports reports limping and using a cane related to his painful right foot. Mr. Meraz's functional self care goal includes being able to stand and walk without difficulty. 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 He smokes 2 packs of cigarettes per day, drinks alcohol occasionally, and is not involved in a structured exercise program. He has been out of work for the past 2.5 years. Physical Exam: Mr. Meraz is a pleasant 46 y.o. male who moves about in the exam room with slow andguarded movements and appears quite uncomfortable while seated. Sitting posture is poor and standing posture is good. Examination of the low back in the standing position reveals a reduced lumbar lordosis and there is not a shift of the lumbar spine on the pelvis. Active range of motion of the lumbar spine is limited to 20 degrees flexion and 5 degrees extension. End range flexion and extension worsens the pain. Gait is slow in pace and antalgic. He requires the use of a cane for support. Slouched sitting worsens the low back pain while sitting fully erect lessens the pain. Repeated movement testing of the lumbar spine did seem to suggest a possible directional preference toward extension. Physical Therapy Assessment: Mr. Meraz is a man with a 2.5 year history of low back pain which is interfering with his ability to function. The physical exam today is significant for marked loss of lumbar range of motion, poor sitting posture, and a directional preference toward extension with movement testing. The history and exam is consistent with mechanical low back pain. I believe that these deficits can improve with physical therapy treatments directed to the low back consisting of instruction in mechanical self care, posture correction of the seated position, and self mobilization exercises. Mr. Meraz has a guarded rehabilitation potential and I anticipate to meet with him for 3-4 additional visits over the next 3-4 weeks. Treatment Plan: The natural history of chronic low back pain and rational for exercise based treatment was reviewed. Mr. Meraz was given a home exercise program consisting of extension in lying 6-8 times per day. Along with the prescribed exercises, we discussed the principles of symptom self monitoring and posture correction of the seated position. Prior to departure he was given the Treat Your Own Back booklet and encouraged to read it. He will call with any questions, concerns, or if the pain worsens. Mr. Meraz will [facility] for a follow up appointment in 1 weeks timewith the hope that he is ready to progress his home exercise program. Unfortunately, he was not able to schedule this appointment today since he has problems with transportation to [facility], but will call for an appointment once he has someone who can drive him. 50 minutes were spent interviewing, assessing, and instructing Taurus Meraz in a home exercise program. documented in this encounter Plan of Treatment Not on file documented as of this encounter Visit Diagnoses Diagnosis Chronic back pain- Primary Backache, unspecified documented in this encounter Care Teams Stitching Machine Setter Relationship Specialty Start Date End Date Dionne Crawley MD [address] [place] [address] PCP - General 06/16/10 11/30/16 documented as of this encounter
--- OUTSIDE RECORDS SUMMARY | 2024-03-07 01:25 | XMS_ITS | Encounter Summary ---
Author Organization [facility] Address [facility] [place] [address] Care Team Providers Care Adult Care Provider Name Role Phone Dionne Crawley MD Primary Care Provider Reason for Visit * Reason Comments Right Foot Pain Encounter Details Date Type Department Care Team (Late st Contact Info) Description 01/02/2013 2:30 PM EDT Office [place] [phone] Arthur Murphy MD [facility] [address] [place] [address] Right subtalar nonunion (Primary Dx); Right sural neuritis Discharge Disposition: Home Social History Tobacco Use [...] Sign Reading Time Taken Comments Blood Pressure 115/88 01/02/2013 2:36 PM EDT Pulse 111 01/02/2013 2:36 PM EDT Temperature - - Respiratory Rate 20 01/02/2013 2:36 PM EDT Oxygen Saturation - - Inhaled Oxygen Concentration - - Weight 68 kg (150 lb) 01/02/2013 2:36 PM EDT Height 162.6 cm (5' 4) 01/02/2013 2:36 PM EDT Body Mass Index 25.75 01/02/2013 2:36 PM EDT documented in this encounter Progress Notes * Arthur Murphy MD - 01/03/2013 9:32 AM EDT I have seen the patient and reviewed the resident's above history and I agree with the details as written. The assessment and plan were formulated in discussion with me and I agree with them as documented. Casie Akers. * Yazmin Beckham MD - 01/02/2013 3:18 PM EDT ENCOUNTER DATE: 01/02/13 ATTENDING STAFF: Dr. Murphy CHIEF COMPLAINT: Right lateral foot/ankle pain, right subtalar nonunion INTERVAL HISTORY: Mr. Meraz returns today in follow-up regarding his right foot and ankle pain. 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 He is a heavy smoker, and continuesto smoke but is down to about a pack a day. We last saw him about 2 months ago. In the interim, his symptoms are unchanged. He continues to have pain over the lateral aspect of the ankle near his prior incision. He describes tingling and pain to light touch over the incision and into the lateral border of the foot to the 5th toe. Pain is worse with touch as well as with inverting/everting his ankle while walking. His Donna brace does help, but he has pain with donning and doffing it. In addition, he reports that he is having a lot of pain in his back and has been seeing Dr. Wu for this.This sounds mostly like back pain without much radiating pain down the leg. OBJECTIVE: Pleasant, short-statured gentleman in no acute distress. He has a well-healed lateral extensile incision over the heel with no associated erythema or induation. He has clubbing of his upper and lower extremity digits. He is quite sensitive to even light touch over the incision and just proximal as well as into the lateral foot and 5th toe. He has a positive Tinel's over the sural nervejust proximal to the incision which recreates some of his paresthesias. He also has tenderness to palpation over the sinus tarsi. He has minimal ankle range of motion, with dorsiflexion to neutral and plantarflexion to 10 degrees with pain at extremes. He does have some residual subtalar motion with an arc of approximately 3-5 degrees around a baseline mild valgus hindfoot alignment. He has sensation intact in DP and SP distributions as well as over the plantar medial foot, with paresthesias onthe lateral and plantarlateral surfaces. He has 5/5 strength with knee extension, ADF, EHL, and ankle plantar flexion. He has a negative seated straight leg raise. 1+ DP pulse. DIAGNOSTIC TESTS: None new ASSESSMENT: 47-year-old 1ppd smoker with subtalar nonunion and chronic lateral foot and ankle pain.The exact source of his pain is not entirely clear, and could be coming from the subtalar nonunion and/or sural nerve injury or hypersensitivity. He also has back issues and a history of disc herniation which may be contributing as well, though his history and exam don't suggest that. PLAN: We reveiwed with Mr. Meraz that we are not willing to attempt a subtalar revision fusion while he continues to smoke and that he would need to quit smoking for at least 3 months before we could go ahead with surgery. In the meantime, we offered him a diagnostic sural nerve injection to see how much of his pain is coming from that source. See details for the procedure below. He will keep track of his symptoms and call us tomorrow to discuss. If much of his pain improves with this injection, we could potentially consider a sural neurolysis or neurectomy even before he quits smoking. If the injection is unhelpful, and the source of discomfort seems to be his nonunion, we would plan to see him again once he is able to quit smoking. We also encouraged him to continue his spine center work-up. He is currently receiving pain medications through his PCP. PROCEDURE PERFORMED: The right lateral ankle was cleansed with alcohol swab followed by duraprep. Asite just proximal to the lateral dome of the calcaneus was selected and sprayed with freezing spray. 2.5cc of 1% lidocaine without epinephrine were injected. 5 minutes later, the patient reported that his lateral foot felt numb with resolution of a small part of his pain. We will plan to hear fromhim tomorrow regarding his symptoms once the lidocaine has fully set in. The patient was seen and examined and assessment and plan developed with Dr. Murphy. documented in this encounter Plan of Treatment Not on file documented as of this encounter Visit Diagnoses Diagnosis Right subtalar nonunion- Primary Arthrodesis status Right sural neuritis Mononeuritis of lower limb, unspecified documented in this encounter Care Teams Adult Care Provider Relationship Specialty Start Date End Date Dionne Crawley MD [address] [place] [address] PCP - General 06/16/10 11/30/16 documented as of this encounter
--- OUTSIDE RECORDS SUMMARY | 2024-03-07 01:25 | XMS_ITS | Encounter Summary ---
Author Organization [facility] Address [facility] [place] [address] Care Team Providers Care Landscape Architecture Teacher Name Role Phone Unknown Primary Care Provider Unavailabl e Reason for Visit * Reason Comments Leg Pain Establish Care * Consultation (Routine) - Closed Specialty Diagnoses / Procedures Referred By Evelina gruber Referred To Contact Vascular Surgery Diagnoses Popliteal pseudoaneurysm Jian Michael MD [address] [place] [address] [facility] [address] [place] [address] Referral ID Status Reason Start Date Expiration Date V isits Requested Visits Authorized [id number] Closed Consult, Test & Treat 11/22/2016 11/22/2017 2 2 Encounter Details Date Type Department Care Team (Late st Contact Info) Description 12/01/2016 1:00 PM EDT Office Visit [place] [address] Brock Arellano MD [facility] [place] [address] Pain of right lower leg Social History Tobacco Use Types Packs/Day [...] Sign Reading Time Taken Comments Blood Pressure 151/72 12/01/2016 12:53 PM EDT Pulse 88 12/01/2016 12:53 PM EDT Temperature - - Respiratory Rate - - Oxygen Saturation - - Inhaled Oxygen Concentration - - Weight 65.8 kg (145 lb) 12/01/2016 12:53 PM EDT Height 165.1 cm (5' 5) 12/01/2016 12:53 PM EDT Body Mass Index 24.13 12/01/2016 12:53 PM EDT documented in this encounter Patient Instructions * Patient Instructions* Brock Arellano MD - 12/01/2016 1:00 PM EDT We will schedule a return visit with imaging (CT scan) in the next few weeks and send a letter for the appointment. Continue follow up with your PCP, Faye Echavarria MD, for regular medical care and risk factor management. Call if any questions. documented in this encounter Progress Notes * Brock Arellano MD - 12/01/2016 1:00 PM EDT Taurus Meraz presents to the Vascular [facility] in consultation from Jian Michael MD and Mr Meraz's PCP, Faye Echavarria MD, with regard to RLE pain, swelling and numbness as described in his referral note in scan docs. I will not reiterate all of that here, but the problem has been going on for a long time, getting worse in the past year. It became problematic enough that he has sought medical attention, and meds including gabapentin have not had much effect. During workup to exclude DVT as a cause, there was a question of AV fistula, and he presents for evaluation here. His other notable problem is low back pain, and at times pain does go from his back down his leg, but mostly he feels the RLE pain from the knee down is separate, and the two pains do not always correlate (i.e., his leg pain/swelling/numbness/burning is nearly constant, while the back pain comes and goes, though itcan be severe). Patient Active Problem List Diagnosis ??? Pain of right lower leg ??? Chronic back pain ??? Right subtalar nonunion ??? Right sural neuritis Social History Social History ??? Marital status: Spouse name: N/A ??? Number of children: N/A ??? Years of education: N/A Occupational History ??? Not on file. Social History Main Topics ??? Smoking status: Current Every Day Smoker Packs/day: 1.00 Years: 25.00 Types: Cigarettes ??? Smokeless tobacco: Never Used Comment: avs information given ??? Alcohol use 0.0 oz/week Comment: occasionally ??? Drug use: Yes Special: Marijuana ??? Sexual activity: Not on file Other Topics Concern ??? Not on file Social History Narrative Family History: Noncontributory. No current Epic-ordered outpatient prescriptions on file. No current Epic-ordered facility-administered medications on file. Allergies: Allergies Allergen Reactions ??? Codeine Phosphate Hives ??? Penicillins GI Upset ??? Bupropion Nightmares ??? Hydrocodone-Acetaminophen Nausea And Vomiting On physical exam, the patient is alert, pleasant and conversant, and in no apparent physical or mental distress. Blood pressure 151/72, pulse 88, height 165.1 cm (5' 5), weight 65.8 kg (145 lb). There are no carotid bruits. Lung thompson are clear bilaterally. Cardiac exam reveals a regular rate andrhythm with no remarkable murmurs. Abdominal exam reveals no bruits, tenderness, or masses. Femoralpulses are palpable bilaterally. There are no apparent popliteal aneurysms. Pedal pulses are palpable on the left but not readily palpable in the right lower extremity. There is an audible bruit in the left medial calf, and with deep palpation there is a palpable thrill and a faintly pulsatile mass. There is a healing wound over this site. Veins are quite prominent on the right calf, but not the left. Both feet are relatively warm and without evidence of emboli, significant edema, or tissue-threatening ischemia. Neurologic exam is focally intact. Duplex RLE today: Findings: Right ? PSV (cm/s) ??EDV ?? Superficial Femoral Artery, Mid ?198 ?? 91 ?? Superficial Femoral Artery, Distal ? 188 ?? 98 ?? Popliteal Artery, Above Knee ? 175 ?? 95 ?? Popliteal Artery, Mid ?214 ?? 98 ?? Popliteal Artery, Below Knee ? 191 ?? 95 ?? Interpretation: Patent right superficial femoral artery and popliteal artery with monophasic Doppler waveforms and high diastolic flow, consistent with a more distal AV fistula. 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 A patent aneurysm or pseudoaneurysm was visualized in the proximal medial calf, near the tibioperoneal trunk trifurcation. It measures approximately 3.6 x 2.9 x 2.8 cm. The exact origin of the PSA was not identified, however a possible neck (approximately 4 mm in diameter) was visualized with turbulent to-fro flow (PSV 460 cm/sec). There is an AVM or fistula distal to the PSA, originating from what appears to be the peroneal artery and vein or the posterior tibial artery and vein. Imp/Rec: Taurus Meraz is a 51 y.o. with two separate pains - a low back pain and a RLE pain. While normally I would say they are entirely related, his hx and physical findings suggest they are two separate problems. 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 It is unclear if this is a congenital AVM or a traumatic or spontaneous AV fistula, but generally the latter is more likely at his age. There is also a wound over the site, although this appears more recent than his symptom hx suggests. Regardless, he would benefit from CTA todelineate this further (has claustrophobia and does not want MR). At that point we can better determine options to treat this issue. I told him the back problems are almost certainly separate, but nobody is likely to address those until we have settled the RLE issue. He understands and agrees. We will see him back in clinic with CT pelvis and LE runoff in the near future. Over 15 minutes of this 19 minute visit were spent in face-face counseling about the aforementioned issues. Brock Arellano MD Vascular Surgery documented in this encounter Plan of Treatment Not on file documented as of this encounter Visit Diagnoses Diagnosis Pain of right lower leg Pain in limb documented in this encounter Care Teams Landscape Architecture Teacher Relationship Specialty Start Date End Date Unknown None PCP - General 12/01/16 12/21/16 documented as of this encounter
--- OUTSIDE RECORDS SUMMARY | 2024-03-07 01:25 | XMS_ITS | Encounter Summary ---
Author Organization [facility] [place] [address] Care Team Providers Care Accounts Payable Or Receivable Clerk Name Role Phone Dionne Crawley MD Primary Care Provider [phone] Reason for Visit * Reason Comments Other follow up to MRI Encounter Details Date Type Department Care Team (Late st Contact Info) Description 02/06/2013 11:40 AM EDT [place] [id number] CLINIC, Alonzo Guzmán MD [facility] [place] [address] Chronic back pain (Primary Dx) Discharge Disposition: [...] Sign Reading Time Taken Comments Blood Pressure - - Pulse - - Temperature - - Respiratory Rate - - Oxygen Saturation - - Inhaled Oxygen Concentration - - Weight 68 kg (150 lb) 02/06/2013 11:34 AM EDT Height 162.6 cm (5' 4) 02/06/2013 11:34 AM EDT Body Mass Index 25.75 02/06/2013 11:34 AM EDT documented in this encounter Patient Instructions * Patient Instructions* Pari Earl LNA - 02/06/2013 11:34 AM EDT Images from the original note were not included. [facility] Stopping Smoking: After Your Visit Your Care Instructions Cigarette smokers crave the nicotine in cigarettes. Giving it up is much harder than simply changing a habit. Your body has to stop craving the nicotine. It is hard to quit, but you can do it. There are many tools that people use to quit smoking. You may find that combining tools works best for you. There are several steps to quitting. First you get ready to quit. Then you get support to help you.After that, you learn new skills and behaviors to become a nonsmoker. For many people, a necessary step is getting and using medicine. Your doctor will help you set up the plan that best meets your needs. You may want to attend a smoking cessation program to help you quit smoking. When you choose a program, look for one that has proven success. Ask your doctor for ideas. You will greatly increase your chances of success if you take medicine as well as get counseling or join a cessation program. Some of the changes you feel when you first quit tobacco are uncomfortable. Your body will miss thenicotine at first, and you may feel short-tempered and grumpy. You may have trouble sleeping or concentrating. Medicine can help you deal with these symptoms. You may struggle with changing your smoking habits and rituals. The last step is the tricky one: Be prepared for the smoking urge to continue for a time. This is a lot to deal with, but keep at it. You will feel better. Follow-up care is a penaloza part of your treatment and safety. Be sure to make and go to all appointments, and call your doctor if you are having problems. It???s also a good idea to know your test results and keep a list of the medicines you take. How can you care for yourself at home? ?? Ask your family, friends, and coworkers for support. You have a better chance of quitting if youhave help and support. ?? Join a support group, such as Nicotine Anonymous, for people who are trying to quit smoking. ?? Consider signing up for a smoking cessation program, such as the [place]'s [place] from Smoking program. ?? Set a quit date. Pick your date carefully so that it is not right in the middle of a big deadline or stressful time. Once you quit, do not even take a puff. Get rid of all ashtrays and lighters after your last cigarette. Clean your house and your clothes so that they do not smell of smoke. ?? Learn how to be a nonsmoker. Think about ways you can avoid those things that make you reach fora cigarette. ?? Avoid situations that put you at greatest risk for smoking. For some people, it is hard to have a drink with friends without smoking. For others, they might skip a coffee break with coworkers who smoke. ?? Change your daily routine. Take a different route to work or eat a meal in a different place. ?? Cut down on stress. Calm yourself or release tension by doing an activity you enjoy, such as reading a book, taking a hot bath, or gardening. ?? Talk to your doctor or pharmacist about nicotine replacement therapy, which replaces the nicotine in your body. You still get nicotine but you do not use tobacco. Nicotine replacement products help you slowly reduce the amount of nicotine you need. These products come in several forms, many of them available [id number]: ?? Nicotine patches ?? Nicotine gum and lozenges ?? Nicotine inhaler ?? Ask your doctor about bupropion (Wellbutrin) or varenicline (Chantix), which are prescription medicines. They do not contain nicotine. They help you by reducing withdrawal symptoms, such as stressand anxiety. ?? Some people find hypnosis, acupuncture, and massage helpful for ending the smoking habit. ?? Eat a healthy diet and get regular exercise. Having healthy habits will help your body move pastits craving for nicotine. ?? Be prepared to keep trying. Most people are not successful the first few times they try to quit.Do not get mad at yourself if you smoke again. Make a list of things you learned and think about when you want to try again, such as next week, next month, or next year. Where can you learn more? Visit our health information library at http://www.[email or web address]. You can alsoview health information on [employer], your personal patient account. Log in or sign up today. Enter Y522 in the search box to learn more about Stopping Smoking: After Your Visit. ?? 2457-2887 [employer]. Care instructions adapted under license by [facility]. This care instruction is for use with your licensed healthcare professional. If you have questions about a medical condition or this instruction, always ask your healthcare professional. [employer] disclaims any warranty or liability for your use of this information. Content Version: 9.1.169868; Last Revised: February 10, 2011 documented in this encounter Progress Notes * Alonzo Wu MD - 02/06/2013 12:09 PM EDT Chief complaint: Low back pain Subjective: He continues to have this very mechanical pattern of lower back pain that he has had over the past 2-1/2 years or so. No radicular component to this including leg pain power or sensory loss. He is taking Cymbalta for depression, cyclobenzaprine for his back. He has been advised that he probably does need surgery for his ankle, but has not been ill stopped smoking in preparation for ananticipated fusion. He is going to get back to Dr. Murphy. about this. Apparently he is recently hada functional capacity evaluation to support his Social Security disability application. He is here to review his lumbar spine MRI. Objective: His affect is somewhat depressed but his speech is in good time to the point with realistic thought content. He has his cane with him. His physical examination was not repeated given the stability of his symptoms. His MRI of the lumbar spine from earlier today was reviewed with him at length. Although this does show degenerative changes through the lower lumbar discs and facets, there is no clear surgical indication here. Assessment: This a matter of chronic mechanical lower back pain with no radicular complications. He's had extensive physical therapy in the past without benefit. We've talked about the pros and cons of medial branch block and radiofrequency ablation at some length today. Wants to hold off on this for the time being. He has about medication and particularly as he has 11 pain condition we have recommended that he review this with his primary care provider his prescribing his other medications. Plan: Review of progress on an as-needed basis in the future. I've given him educational material on the radiofrequency ablation which he will consider. I also strongly encouraged him to followup with Dr. Murphy since his weightbearing foot and ankle pain is his most disabling problem at this point by his description. documented in this encounter Plan of Treatment Not on file documented as of this encounter Visit Diagnoses Diagnosis Chronic back pain- Primary Backache, unspecified documented in this encounter Care Teams Accounts Payable Or Receivable Clerk Relationship Specialty Start Date End Date Dionne Crawley MD [address] [place] [address] PCP - General 06/16/10 11/30/16 documented as of this encounter
--- OUTSIDE RECORDS SUMMARY | 2024-03-07 01:25 | XMS_ITS | Encounter Summary ---
Author Organization [facility] [place] [address] Care Team Providers Care Hand Candle Molder Name Role Phone Dionne Crawley MD Primary Care Provider [phone] Reason for Visit * Reason Comments Back Pain Encounter Details Date Type Department Care Team (Late st Contact Info) Description 01/02/2013 12:20 PM EDT Office [place] [address] Alonzo Wu MD [facility] [place] [address] Chronic back pain (Primary Dx) Discharge Disposition: [...] as of this encounter Progress Notes * Alonzo Wu MD - 01/02/2013 1:10 PM EDT Chief complaint: Chronic low back pain Subjective: He continues with this chronic problem of mechanical lumbosacral pain. No radicular complications. He's using Flexeril and Cymbalta. He is in the process of applying for Social Security disability support based on this complaint and his right ankle/foot injury he describes a sedentary lifestyle currently. Objective: His affect is relatively bright. His physical examination was not repeated given the stability of his symptoms. Assessment: He is really not had any response to the mechanical diagnosis and treatment program he went through with the spine physical therapy staff. Therefore we've talked about the options of further diagnostic evaluation to her assess his need for and likelihood of benefit from either radiofrequency ablation or spinal fusion. We've mutually decided to proceed as follows. Plan: Lumbar spine MRI and return to review these images with treatment options as above. This willgive us time also to hear from the foot and ankle service about plans along those lines. documented in this encounter Plan of Treatment Not on file documented as of this encounter Results * MRI lumbar spine [...] in the context of the clinical situation. (Reference-Alexvik et al, Spine 2001) Findings: (prevalence in [...] in the context of the clinical situation. (Reference-Alexvik et al, Sjhvc1422) Findings: (prevalence in patients without low back pain), Diskdegeneration (decreased T2 signal, height loss, bulge) (91%), Disk T2-signal loss(83%), Disk height loss (56%), Disk bulge (64%), Disk protrusion (32%), Annular fissure (38%). Alonzo Wu MD IMG MRI ORDERABLES documented in this encounter Visit Diagnoses Diagnosis Chronic back pain- Primary Backache, unspecified Chronic back pain Backache, unspecified documented in this encounter Care Teams Hand Candle Molder Relationship Specialty Start Date End Date Dionne Crawley MD [address] [place] [address] PCP - General 06/16/10 11/30/16 documented as of this encounter
--- OUTSIDE RECORDS SUMMARY | 2024-03-07 01:25 | XMS_ITS | Encounter Summary ---
Author Organization [facility] [place] [facility] Address [facility] [place] [address] Care Team Providers Care Pharmacy Resident Name Role Phone Dionne Crawley MD Primary Care Provider [phone] Encounter Details Date Type Department Care Team (Late st Contact Info) Description 04/12/2012 External Results XRay at [address] [place] [address] Provider, Scanning Social History Tobacco Use Types Packs/Day Years Used Date Smoking Tobacco: Never Assessed Sex and Gender Information Value Date Recorded Sex Assigned at Not on file Gender Identity Not on file Sexual Orientation Not on file documented as of this encounter Plan of Treatment Not on file documented as of this encounter Procedures Procedure Name Priority Date/Time Associated Diagnosis Comments DIAGNOSTIC RADIOLOGY SCAN Routine 12/01/2011 documented in this encounter Results * Scan Doc: Diagnostic Radiology (12/01/2011) Anatomical Region Laterality Modality Other Scanning Provider MEDIA MGR SCAN EXT O RDR/RSLT documented in this encounter Visit Diagnoses Not on filedocumented in this encounter Care Teams Pharmacy Resident Relationship Specialty Start Date End Date Dionne Crawley MD [address] [place] [address] PCP - General 06/16/10 11/30/16 documented as of this encounter
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
--- OUTSIDE RECORDS SUMMARY | 2024-03-07 01:25 | XMS_ITS | Encounter Summary ---
Author Organization [facility] [place] [address] Care Team Providers Care Dispatcher Maintenance Name Role Phone Dionne Crawley MD Primary Care Provider [phone] Encounter Details Date Type Department Care Team (Late st Contact Info) Description 11/23/2016 Orders [place] [address] Jannette Pizano RN Pseudoaneurysm Social History Tobacco Use Types Packs/Day Years [...] Text Report Department: Vascular Surgery Lab Patient: [id number] (TAURUS BURGOS) CPT: 68154 ICD10: I72.9;S85.891A Referring Physician: ORLY FLEMING ?? [...] site documented in this encounter Care Teams Dispatcher Maintenance Relationship Specialty Start Date End Date Dionne Crawley MD [address] [place] [address] PCP - General 06/16/10 11/30/16 documented as of this encounter
--- OUTSIDE RECORDS SUMMARY | 2024-03-07 01:25 | XMS_ITS | Encounter Summary ---
Author Organization [facility] Address [facility] [place] [address] Care Team Providers Care Member Service Specialist Name Role Phone Faye Echavarria MD Primary Care Provider [phone] Reason for Visit * Reason Comments Follow-up Encounter Details Date Type Department Care Team (Late st Contact Info) Description 01/07/2017 1:00 PM EDT Office Visit [place] [address] Krissy Noel MD [facility] [place] [address] Arteriovenous fistula, right lower extremity Social History Tobacco Use [...] Sign Reading Time Taken Comments Blood Pressure 145/88 01/07/2017 1:02 PM EDT Pulse 84 01/07/2017 1:02 PM EDT Temperature - - Respiratory Rate - - Oxygen Saturation - - Inhaled Oxygen Concentration - - Weight 65.8 kg (145 lb) 01/07/2017 1:02 PM EDT Height 162.6 cm (5' 4) 01/07/2017 1:02 PM EDT Body Mass Index 24.89 01/07/2017 1:02 PM EDT documented in this encounter Progress Notes * Krissy Noel MD - 01/07/2017 1:00 PM EDT OUTPATIENT VASCULAR SURGERY FOLLOW-UP Reason for Visit: R femoral pain History of Present Illness: Taurus Burgos is a 51 y.o. 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 Pt called on 01/03 reporting pain and bruising at his access site. He returns today for duplex to r/o pseudoaneurysm. Atherosclerotic Risk Factors: (n) DM (n) HTN (n) CAD (n) CHF (n) Hyperlipidemia (n) CVA reports that he has been smoking Cigarettes. He has a 37.50 pack-year smoking history. He has neverused smokeless tobacco. Patient Active Problem List Diagnosis Code ??? Chronic back pain M54.9, G89.29 ??? 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 Right sural neuritis G57.80 ??? Pain of right lower leg M79.661 ??? Pseudoaneurysm, right lower extremity I72.9 ??? Arteriovenous fistula, right lower extremity I77.0 Current Outpatient Prescriptions: ??? aspirin 325 mg Tablet, Delayed Release (E.C.), Take 325 mg by mouth daily., Disp: , Rfl: 0 ??? gabapentin (NEURONTIN) 100 mg Capsule, Take 100 mg by mouth daily., Disp: , Rfl: 0 Allergies Allergen Reactions ??? Codeine Phosphate Hives ??? Penicillins GI Upset ??? Bupropion Nightmares ??? Hydrocodone-Acetaminophen Nausea And Vomiting ??? Plavix [Clopidogrel] Itching and Rash Review of Systems: Constitutional (weight change, fever) - Denies Neuro (dizziness, seizures, numbness, tingling) - Denies Eyes (vision) - Denies Ears, nose, throat (hearing) - Denies Cardiovascular (CP) - Denies Respiratory (SOB) - Denies GI (abd pain, nausea, emesis, blood in stool) - Denies (hematuria, dysuria, frequency) - Denies Muscoloskeletal (extremity pain, weakness) - Denies Skin (ulcers, rashes) - Denies Functional Status/Social Hx: Lives at home, + Tobacco Use Family Hx: Negative for Thrombosis, Bleeding Disorders Physical Exam: BP 145/88 (BP Location (NBP): Left arm, Patient Position: Sitting) Pulse 84 Ht 162.6 cm (5' 4) Wt 65.8 kg (145 lb) BMI 24.89 kg/m2 General - NAD, appears stated age Neuro - Alert and Oriented, Motor Sensory grossly intact Skin - No prominent markings or lesions Ear, Nose, Throat - No masses, No lesions Cardiac - RRR, no murmurs Lungs - Clear Abd - Soft, NT, ND, No palpable pulsatile masses Musculoskeletal- full ROM upper and lower extremities Psych- alert oriented X3 Extremities - L thigh with resolving ecchymosis. Labs: Recent Results (from the past 72 hour(s)) Arterial Duplex Leg, Unil Result Value Ref Range VB Text Report Department: Vascular Surgery Lab Patient: [id number] (TAURUS BURGOS) CPT: 02897 ICD10: I77.0 Referring Physician: CHRISTIANE ESTRADA Indications: Left groin pain s/p left groin access, ? pseudoaneurysm ICD10 Diagnosis Code: I77.0 Findings: Left PSV (cm/s) EDV Common Femoral Artery, Mid 99 0 Profunda Femoris Artery, Proximal 61 0 Superficial Femoral Artery, Proximal 92 0 Interpretation: Widely patent LEFT common femoral artery, femoral bifurcation and and common femoral vein with normal Doppler waveforms. No evidence of a pseudoaneurysm or a-v fistula was identified. VB Text Report End of Report Assessment and Plan: 51 y.o. male s/p Coil embolization of right tibial-peroneal trunk arterial pseudoaneurysm; Repair of chronic AV fistula with right tibial- peroneal trunk stent-graft (Viabahn) with no pseudoaneurysm seen on duplex. He will return for follow-up in 3-4 weeks with DOROTHY as previouslyplanned. documented in this encounter Plan of Treatment Not on file documented as of this encounter Visit Diagnoses Diagnosis Arteriovenous fistula, right lower extremity Arteriovenous fistula, acquired documented in this encounter Care Teams Member Service Specialist Relationship Specialty Start Date End Date Faye Echavarria MD [address] [place] [id number] PCP - General Family Medicine 12/22/16 documented as of this encounter
--- OUTSIDE RECORDS SUMMARY | 2024-03-07 01:25 | XMS_ITS | Encounter Summary ---
Author Organization [facility] [place] [address] Care Team Providers Care Industrial Engineering Name Role Phone Faye Echavarria MD Primary Care Provider [phone] Encounter Details Date Type Department Care Team (Latest Contact Info) Description 01/07/2017 12:30 PM EDT - 01/07/2017 11:59 PM EDT Hospital [place] [phone] Evette Nugent [place] AV fistula Discharge Disposition: Home Social History [...] Diagnosis Comments ARTERIAL DUPLEX LEG UNILA Routine 01/07/2017 12:35 PM EDT AV fistula documented in this encounter Results * Arterial Duplex Leg, Unil (01/07/2017 12:35 PM EDT) VB Text Report Department: Vascular Surgery Lab Patient: [id number] (TAURUS BURGOS) CPT: 69910 ICD10: I77.0 Referring Physician: CHRISTIANE ESTRADA ?? [...] PM EDT Christiane Estrada MD VASCULAR ORDERABLES VASCU[facility] documented in this encounter Visit Diagnoses Diagnosis AV fistula Arteriovenous fistula, acquired documented in this encounter Care Teams Industrial Engineering Relationship Specialty Start Date End Date Faye Echavarria MD [address] [place] [address] PCP - General Family Medicine 12/22/16 documented as of this encounter
--- OUTSIDE RECORDS SUMMARY | 2024-03-07 01:25 | XMS_ITS | Encounter Summary ---
Author Organization [facility] Address [facility] [place] [address] Care Team Providers Care Bird Trapper Name Role Phone Faye Echavarria MD Primary Care Provider [phone] Encounter Details Date Type Department Care Team (Late st Contact Info) Description 01/02/2017 Telephone [place] [phone] Paulina Khan MD [facility] [place] [address] Social History Tobacco Use Types Packs/Day Years [...] encounter Miscellaneous Notes * Telephone Encounter - Paulina Khan MD - 01/02/2017 10:00 AM EDT Received call from provider at [facility] Patient received plavix on Tuesday afternoon, and awoke on Tuesday morning with a rash of his trunkand legs which was itchy. He took his plavix on Tuesday and the rash has persisted. The provider believes that the rash looks consistent with a drug rash. The patient is wondering if he can stop hisplavix. I advised that he stop his plavix and take a full strength aspirin daily. documented in this encounter Plan of Treatment Not on file documented as of this encounter Visit Diagnoses Not on filedocumented in this encounter Care Teams Bird Trapper Relationship Specialty Start Date End Date Faye Echavarria MD [address] [place] [address] PCP - General Family Medicine 12/22/16 documented as of this encounter
--- OUTSIDE RECORDS SUMMARY | 2024-03-07 01:25 | XMS_ITS | Encounter Summary ---
Author Organization [facility] [place] [address] Care Team Providers Care Automatic Trimming Sewer Name Role Phone Dionne Crawley MD Primary Care Provider [phone] Reason for Referral * Physical Therapy (Routine) - Closed Specialty Diagnoses / Procedures Referred By Evelina gruber Referred To Contact Physical Therapy Diagnoses Chronic back pain Alonzo Wu MD [facility] [place] [address] [facility] [place] [address] Referral ID Status Reason Start Date Expiration Date V isits Requested Visits Authorized [id number] Closed Evaluate and Treat 07/04/2012 12/31/2012 1 1 Reason for Visit * Reason Comments Chronic Back Pain low back pain, has p rogressed since his foot surgeries Encounter Details Date Type Department Care Team (Late st Contact Info) Description 07/04/2012 12:20 PM EST Office [place] [phone] Alonzo Wu MD [facility] [place] [address] Chronic back pain (Primary Dx) Discharge Disposition: Home Social History Tobacco Use Types Packs/Day Years Used Date Smoking Tobacco: Every Day Cigarettes 1 25 Smokeless Tobacco: Never Tobacco Cessation:Ready to Q uit: No; Counseling Given: Yes Comments:avs information given Alcohol Use Standard Drinks/Week Comments Yes 0 (1 standard drink = 0.6 oz pur e alcohol) occasionally Sex and Gender Information Value Date Recorded Sex Assigned at Not on file Gender Identity Not on file Sexual Orientation Not on file documented as of this encounter Last Filed Vital Signs Vital Sign Reading Time Taken Comments Blood Pressure 160/90 07/04/2012 12:31 PM EST Pulse - - Temperature - - Respiratory Rate - - Oxygen Saturation - - Inhaled Oxygen Concentration - - Weight 68 kg (150 lb) 07/04/2012 12:31 PM EST Height 162.6 cm (5' 4) 07/04/2012 12:31 PM EST Body Mass Index 25.75 07/04/2012 12:31 PM EST documented in this encounter Patient Instructions * Patient Instructions* Johny Raia Krysta, SWITCH REPAIRER - 07/04/2012 12:31 PM EST Welcome to [employer], your secure online access to your electronic medical record at [facility]. Using [employer] you will be able to send messages to your providers, view your test results, renew prescriptions, schedule appointments, and much more. Follow these instructions to enter your personal [employer] account for the first time: 1. Start your internet browser and type [email or web address] into the address bar. 2. In the New User box on the right-hand side of the Welcome page click the link that states, ???I have an activation code.?? 3. On the Identification page, follow these steps: a) Enter your [employer] activation code: [email or web address] b) Expires: 08/18/2012 12:31 PM IMPORTANT: This Activation Code will on the above mentioned date. If you do not sign up for [employer] by this date, you will need to request another activation code. c) Enter your date of , using the calendar tool provided. d) Enter your Zip code. e) Select ???submit?? to go to the next page. 4. On the Create Account page, follow these steps: a) Create a [employer] username. This can???t be changed, so choose one you won???t forget. b) Create a password that???s at least six characters long, and that contains at least two numbers.Your password can be changed at any time. Confirm your password by entering it once more. c) Enter your email address. This will be used to alert you to new information. Confirm your email address by entering it once more. d) Enter your security question. This will be used if you forget your password. e) Enter your security answer. Confirm your security answer by entering it once more. f) Select ???submit?? to view your electronic medical record. If you have any questions about [employer] or your Access Code, please call for [place], for [place] or for [place]. If you need technical support, please e-mail [email or web address] Remember, [employer] is NOT for urgent needs! Always dial 911 for medical emergencies. documented in this encounter Progress Notes * Alonzo Wu MD - 07/04/2012 1:34 PM EST Chief complaint: Low back pain Subjective: He's had mechanical lower back pain for over 12 years now. His recollection is that hisback pain has been worse in the past 2-1/2 years since he right calcaneal fracture and 2 subsequentsurgeries have altered his gait. His walking is limited by his foot and ankle pain to about 100 yards now but he also has trouble tolerating sitting because of his back pain so he spends a good deal of his day reclining apparently. He does not recall radicular pain power or sensory changes. He was using pain medication to help with his foot and ankle pain but when this was discontinued, he had less control of his back pain as well. He's had no recent spinal imaging, but had plain x-rays done 12/03 and he had a pain center evaluation in which injections were proposed but he was reluctant to pursue this. Objective: His affect is somewhat anxious but her speech is in good time to the point with realistic thought content. He stands preferring not to pull put full weight on his right foot. There is no evident spinal deformity however. Trunk flexibility through the waist while standing is very guarded with only a few degrees extension and 30?? forward flexion both with backache. Seated straight leg raises are negative. His lateral ankle surgical scar is noted. He is very antalgic back and forth in the exam room with his weightbearing pain. Gross touch sensation however is accurate in the lower extremities and his manual power testing is symmetrical in the lower extremities. His plain x-rays have shown degenerative changes at L4-5 and L5-S1 with anterior osteophyte formation. There is no fracture or listhesis of note however. Assessment: These 2 problems of lower extremity pain status post surgeries for calcaneal fracture, chronic low back pain are together very activity limiting for him. He is going to have an orthopedicsecond opinion regarding his foot and ankle pain later today and hopefully that'll be productive. The meantime we'll go ahead with mechanical evaluation for his lower back pain and if this is not rapidly successful in producing a self-care regimen that helps, we would go ahead with lumbar spine MRIand return to review his options in terms of surgery injections or pain center referral for symptomcontrol. This was a counseling based visit for 25 minutes of the 45 minute encounter talking about his options and he is reasonable understanding of this protocol so we'll proceed as follows. Plan: He is going to return for a spine center physical therapy evaluation to see if he does have adirectional preference to his back pain can develop a mechanical self-care program appropriate to that. If this is not rapidly successful, he will go ahead and have a lumbar spine MRI and returned review the further options as above, hopefully he can get some help with his foot/ankle pain the meantime. documented in this encounter Plan of Treatment Scheduled Referrals Name Type Priority Associated Diagnoses Orde r Schedule Referral to Physical Therapy Outpatient Referral Routine Chronic back pain Ordered: 07/04/2012 documented as of this encounter Visit Diagnoses Diagnosis Chronic back pain- Primary Backache, unspecified documented in this encounter Care Teams Automatic Trimming Sewer Relationship Specialty Start Date End Date Dionne Crawley MD [address] [place] [address] PCP - General 06/16/10 11/30/16 documented as of this encounter
--- OUTSIDE RECORDS SUMMARY | 2024-03-07 01:25 | XMS_ITS | Encounter Summary ---
Author Organization [facility] Address [facility] [place] [address] Care Team Providers Care Kettle Girl Name Role Phone Dionne Crawley MD Primary Care Provider Encounter Details Date Type Department Care Team (Late st Contact Info) Description 03/15/2013 [place] [address] Katrin Campuzano, RN Social History Tobacco Use Types Packs/Day [...] encounter Miscellaneous Notes * Telephone Encounter - Katrin Campuzano, RN - 03/15/2013 12:18 PM EDT Taurus Meraz :1965 Patient cancelled procedure for 03/16/13 due to not having a airport driver. documented in this encounter Plan of Treatment Not on file documented as of this encounter Visit Diagnoses Not on filedocumented in this encounter Care Teams Kettle Girl Relationship Specialty Start Date End Date Dionne Crawley MD [address] [place] [address] PCP - General 06/16/10 11/30/16 documented as of this encounter
--- OUTSIDE RECORDS SUMMARY | 2024-03-07 01:25 | XMS_ITS | Encounter Summary ---
Author Organization [facility] Address [facility] [place] [address] Care Team Providers Care Rail Setter Name Role Phone Dionne Crawley MD Primary Care Provider [phone] Encounter Details Date Type Department Care Team (Late st Contact Info) Description 04/20/2012 Orders [place] [address] Arthur Murphy MD [facility] [place] [address] Pain (Primary Dx) Social History Tobacco Use Types Packs/Day Years Used Date Smoking Tobacco: Never Assessed Sex and Gender Information Value Date Recorded Sex Assigned at Not on file Gender Identity Not on file Sexual Orientation Not on file documented as of this encounter Plan of Treatment Not on file documented as of this encounter Results * XR foot minimum 3 views (07/04/2012 11:47 AM EST) Anatomical Region Laterality Modality Foot N/A Radiographic Apurva ging 07/04/2012 11:4 7 AM EST Narrative 07/04/2012 3:48 PM EST Examination FOOT MIN 3 VIEWS/RIGHT Clinical History F/U RIGHT FOOT PAIN Comparison Right foot radiographs on 02/05/2010, 03/11/2010, and 05/13/2010. Technique Right foot radiograph, AP, oblique, and lateral views. Findings The patient is status post calcaneal fracture and subsequent subtalar arthrodesis stabilized with 2 screws placed from the calcaneal tuberosity into the talus. ??The anterior most of the 2 screws appears to penetrate the lateral neck of the talus and extends into the region of the sinus tarsus. The heel is ?? shortened and broad secondary to the fracture malunion of the calcaneus. Generalized demineralization is present throughout the foot. Impression ? 1. The patient is status post a subtalar arthrodesis following calcaneal fracture. [address] in place. The fixation screw placed into the talar neck penetrates the lateral cortex. Film and interpretation reviewed by the attending Procedure Note Lance Almeida MD - 07/04/2012 Examination FOOT MIN 3 VIEWS/RIGHT Clinical History F/U RIGHT FOOT PAIN Comparison Right foot radiographs on 02/05/2010, 03/11/2010, and 05/13/2010. Technique Right foot radiograph, AP, oblique, and lateral views. Findings The patient is status post calcaneal fracture and subsequent subtalar arthrodesis stabilized with 2 screws placed from the calcaneal tuberosityinto the talus. The anterior most of the 2 screws appears to penetrate thelateral neck of the talus and extends into the region of the sinus tarsus. Theheel is shortened and broad secondary to the fracture malunion of the calcaneus. Generalized demineralization is present throughout the foot. Impression 1. The patient is status post a subtalar arthrodesis followingcalcaneal fracture. [address] The fixation screw placed intothe talar neck penetrates the lateral cortex. Film and interpretation reviewed by the attending Arthur Murphy MD IMG DX ORDERABLES documented in this encounter Visit Diagnoses Diagnosis Pain- Primary Generalized pain Pain Generalized pain documented in this encounter Care Teams Rail Setter Relationship Specialty Start Date End Date Dionne Crawley MD [address] [place] [id number] PCP - General 06/16/10 11/30/16 documented as of this encounter
--- OUTSIDE RECORDS SUMMARY | 2024-03-07 01:25 | XMS_ITS | Encounter Summary ---
Author Organization [facility] [place] [address] Care Team Providers Care Information Manager Name Role Phone Dionne Crawley MD Primary Care Provider Encounter Details Date Type Department Care Team (Latest Contact Info) Description 11/19/2016 - 11/19/2016 11:59 PM EDT Hospital Encounter [place] [phone] Jian Michael MD [address] [place] [address] Pain Discharge Disposition: Home Social History Tobacco Use [...] Procedure Name Priority Date/Time Associated Diagnosis Comments FILM LIBRARY STORAGE ONLY ULTRASOUND STUDY Routine 11/19/2016 12:00 AM EDT Pain documented in this encounter Results * Film Library- Storage Only Ultrasound Study (11/19/2016 12:00 AM EDT) Narrative KATHY BARTH - 11/22/2016 1:54 PM EDT This exam is for storage only and is auto-finalizing. Jian Michael MD IMG FILM LIBRARY ORD ERABLES [place], [place] documented in this encounter Visit Diagnoses Diagnosis Pain Generalized pain documented in this encounter Care Teams Information Manager Relationship Specialty Start Date End Date Dionne Crawley MD [address] [place] [address] PCP - General 06/16/10 11/30/16 documented as of this encounter
--- OUTSIDE RECORDS SUMMARY | 2024-03-07 01:25 | XMS_ITS | Encounter Summary ---
Author Organization [facility] Address [facility] [place] [address] Care Team Providers Care Teletypewriter Operator Name Role Phone Dionne Crawley MD Primary Care Provider Reason for Visit * Reason Onset Date Comments Foot Injury 12/17/2010 old foot fractur e requesting extension of disability. Encounter Details Date Type Department Care Team (Late st Contact Info) Description 12/17/2010 Telephone [place] [id number] Regina Valentino PA [facility] [place] [address] Foot Injury (old foot fracture requesting extension of disability.) Social History Tobacco Use Types Packs/Day Years Used Date Smoking Tobacco: Never Assessed Sex and Gender Information Value Date Recorded Sex Assigned at Not on file Gender Identity Not on file Sexual Orientation Not on file documented as of this encounter Miscellaneous Notes * Telephone Encounter - Bozena Pelaez - 12/17/2010 12:39 PM EDT Mr. Meraz called requesting disability forms be extended up to one year because at his evaluation in April of 2010 a form was filled out that stated the injury was to last 6-12 months for his rt calcaneus and ankle fractures. At that time the [facility] said he was all set and covered for a year. That would be April of 2011. They recently retracted that and said because of the way itwas filled out it is only good for 6 months and now due to . Regina Valentino PAC stated that she can not fill out the form or revise it because he has not been seen. At that time he was referred to Dr. Murphy and an appoinment arranged. Mr. Meraz stated that he was not aware of that appointment that was set up at the time of his lastvisit here. I offered to set him up for a new appointment and he declined. He was concerned about losing his disability status stating that he will have no money and will lose his home. I asked care management for assistance and advice and she attempted to call him and lefta message. He was transferred to that office again today. documented in this encounter Plan of Treatment Not on file documented as of this encounter Visit Diagnoses Not on filedocumented in this encounter Care Teams Teletypewriter Operator Relationship Specialty Start Date End Date Dionne Crawley MD [address] [place] [address] PCP - General 06/16/10 11/30/16 documented as of this encounter
--- OUTSIDE RECORDS SUMMARY | 2024-03-07 01:25 | XMS_ITS | Encounter Summary ---
[place] [address] Care Team Providers Care Major Appliance Assembly Supervisor Name Role Phone Dionne Crawley MD Primary Care Provider [phone] Encounter Details Date Type Department Care Team (Late st Contact Info) Description 04/13/2013 Telephone [place] [id number] Aria George LPN Social History Tobacco Use Types Packs/Day Years [...] encounter Miscellaneous Notes * Telephone Encounter - Aria George LPN - 04/13/2013 3:59 PM EDT Taurus Meraz :1965 Contact made with patient: I spoke to Mr. Meraz at 4:00 PM regarding his upcoming lumbar medial branch block scheduled on 04/18/13 at 10:45am with Dr. Moises Knox MD. Medication and Allergy reconciliation: 1. Changes were made in the telephone encounter per patient; marked as reviewed, and closed. 2. Patient confirmed no IVP dye allergy. 3. Patient advised that a prescription would be phoned in to their pharmacy of choice. Patient aware they must start the medications 13 hours prior to procedure with details explained. Arrival time: The patient was instructed to arrive 30 minutes prior to procedure start time - 60 minutes prior for RF patients with a pacemaker. Health And Wellness Director: The patient was reminded that they need to have a pack train driver accompany them to his procedure who will remain onsite. Antibiotics/Skin assessment/Illness symptoms/Pain level assessment : 1. The patient confirmed that he is not taking antibiotics at this time. 2. The patient confirmed that he does not have any rashes, blisters, or skin breakdown on their body. 3. The patient confirmed that he does not have any active infections. 4. The patient confirmed that he does not have any symptoms of illness: fever, chills, cold, flu, nausea, vomiting. 5. The patient confirmed that he isstill experiencing significant pain. (Significant pain is defined as interfering with performing ADL.) Pain and Anti-anxiety Medications: 1. Nerve Block Procedure Patients: Patient was instructed NOT to take their pain medications on theday of the procedure and anti-anxiety medications are part of their daily medication regiment; theycan and should continue taking that medication. 2. All Other Procedure Patients: The patient was instructed that if they take daily pain or anti-anxiety medications, they can and should continue taking on the day of the procedure. Anticoagulants: No Implant: Patient has pacemaker/defibrillator: No Prior to checking in at [employer], please be sure to empty your bladder. Patient confirmed understanding that if they do not follow the above their instructions, their procedure is likely to be cancelled. Aria George LPN documented in this encounter Plan of Treatment Not on file documented as of this encounter Visit Diagnoses Not on filedocumented in this encounter Care Teams Major Appliance Assembly Supervisor Relationship Specialty Start Date End Date Dionne Crawley MD [address] [place] [address] PCP - General 06/16/10 11/30/16 documented as of this encounter
--- OUTSIDE RECORDS SUMMARY | 2024-03-07 01:25 | XMS_ITS | Encounter Summary ---
Author Organization [facility] [place] [address] Care Team Providers Care Customer Accounts Advisor Name Role Phone Unknown Primary Care Provider Unavailabl e Reason for Referral * Diagnostic Test (Routine) - Closed Specialty Diagnoses / Procedures Referred By Evelina gruber Referred To Contact Radiology Diagnoses AV fistula Procedures CT Angiogram Aorta Lower Extremity Runoff [facility] [address] [place] [address] [facility] [place] [address] Referral ID Status Reason Start Date Expiration Date V isits Requested Visits Authorized [id number] Closed Specialty Service Requested 12/02/2016 12/02/2017 1 1 Encounter Details Date Type Department Care Team (Late st Contact Info) Description 12/02/2016 Orders [place] [phone] Jannette Pizano RN AV fistula Social History Tobacco Use Types [...] documented as of this encounter Results * CT Angiogram Aorta [...] recommend radiographsfor further evaluation. Brock Arellano MD IMG CT ORDERABLES documented in this encounter Visit Diagnoses Diagnosis AV fistula Arteriovenous fistula, acquired AV fistula Arteriovenous fistula, acquired documented in this encounter Care Teams Customer Accounts Advisor Relationship Specialty Start Date End Date Unknown None PCP - General 12/01/16 12/21/16 documented as of this encounter
--- OUTSIDE RECORDS SUMMARY | 2024-03-07 01:25 | XMS_ITS | Encounter Summary ---
Author Organization [facility] Address [facility] [place] [address] Care Team Providers Care Computer Aided Design Designer Name Role Phone Dionne Crawley MD Primary Care Provider [phone] Encounter Details Date Type Department Care Team (Late st Contact Info) Description 07/04/2012 11:35 AM EST - 07/04/2012 11:59 PM EST Hospital Encounter XRay at [address] [place] [address] Pain Social History Tobacco Use Types Packs/Day Years [...] needed. 04/18/2013 documented as of this encounter Plan of Treatment Not on file documented as of this encounter Procedures Procedure Name Priority Date/Time Associated Diagnosis Comments XR FOOT MINIMUM 3 VIEWS Routine 07/04/2012 11:47 AM EST Pain documented in this encounter Results * XR foot minimum [...] pain documented in this encounter Care Teams Computer Aided Design Designer Relationship Specialty Start Date End Date Dionne Crawley MD [address] [place] [id number] PCP - General 06/16/10 11/30/16 documented as of this encounter
--- OUTSIDE RECORDS SUMMARY | 2024-03-07 01:25 | XMS_ITS | Encounter Summary ---
Author Organization [facility] [place] [address] Care Team Providers Care Student Specialist Name Role Phone Faye Echavarria MD Primary Care Provider [phone] Reason for Referral * Diagnostic Test (Routine) - Closed Specialty Diagnoses / Procedures Referred By Evelina gruber Referred To Contact Radiology Diagnoses Arteriovenous fistula Procedures VS Angiogram/intervention (vascular) [facility] [address] [place] [id number] [place] [address] Referral ID Status Reason Start Date Expiration Date V isits Requested Visits Authorized [id number] Closed Specialty Service Requested 12/22/2016 12/22/2017 1 1 Reason for Visit * Diagnostic Test (Routine) - Closed Specialty Diagnoses / Procedures Referred By Contac t Referred To Contact Radiology Diagnoses Arteriovenous fistula Procedures VS Angiogram/intervention (vascular) [facility] [address] [place] [phone] [place] [address] Referral ID Status Reason Start Date Expiration Date V isits Requested Visits Authorized [id number] Closed Specialty Service Requested 12/22/2016 12/22/2017 1 1 Encounter Details Date Type Department Care Team (Latest Contact Info) Description 12/31/2016 8:16 AM EDT - 12/31/2016 11:59 PM EDT Hospital [place] [address] Christiane Estrada MD [facility] [place] [address] Arteriovenous fistula, right lower extremity Discharge Disposition: Home Social History Tobacco Use [...] Sign Reading Time Taken Comments Blood Pressure 145/72 12/31/2016 4:46 PM EDT Pulse 68 12/31/2016 11:30 AM EDT Temperature 36.9 ??C (98.5 ??F) 12/31/2016 11:57 AM E DT Respiratory Rate 16 12/31/2016 11:40 AM EDT Oxygen Saturation 95% 12/31/2016 4:46 PM EDT Inhaled Oxygen Concentration - - Weight 66.5 kg (146 lb 9.7 oz) 12/31/2016 8:27 A M EDT Height - - Body Mass Index 25.16 12/22/2016 8:44 AM EDT documented in this encounter Discharge Instructions * Discharge Instructions* Alma Rosa Kaur RN - 12/31/2016 2:13 PM EDT [facility] Interventional Radiology Post Angiography Instructions Procedure: Right lower extremity angiogram with intervention Puncture Site: Left groin Date: 12/31/16 Physician: 1. At home we advise you to rest quietly in bed or on the couch with your hip straight until the next morning. Until the next morning you may get up only to go to the bathroom. 2. Resume your previous diet. Drink 6-8 ounces of fluid per hour for the next 8 hours. Avoid alcoholic or caffeinated beverages for 24 hours. 3. Avoid strenuous activity for the next 48 hours, particularly in the next 24 hours. Stair climbing should be kept to a minimum. Do not lift objects heavier than 10-15 pounds for the next 48 hours Avoid straining for bowel movements as you can pop open the clot that has formed on the artery. 4. If you develop bulging under the skin or bleeding at the puncture site, put direct pressure on the puncture site for 15 minutes and call your doctor. If the bleeding persists, reapply pressure, and go to your local Emergency Department. 5. If you notice a sudden change in the feeling (numbness, tingling and/or pain) of your leg on theside of the puncture call your doctor. 6. You may develop a bruise at the puncture site. This should go away within a week to 10 days. If a bulge develops after the first three days, call your doctor or the Radiology/Vascular Department here. Report signs of infection (redness, swelling, discharge, soreness, or fever) to your doctor. 7. Leave the bandage on for 24-48 hours. You may shower the following day after the procedure. You should NOT swim or tub bathe for [address] for 24 hours after the procedure. Do not sign any important documents or smoke unattended for 24 hours. You may return to work with the above restrictions on . 9. If you have any questions or concerns, please call Interventional Radiology Department at until 6pm. After 6pm, or on weekends or hoildays, call and ask for the finance vice president renewable energy division manager. OR Vascular Department at until 4:45pm. After 4:45pm call [phone] and ask for the Vascular resident renewable energy division manager. 10. If you are a diabetic and take Metformin or Janumet, Do not take it for 2 days after the procedure. XX You have received medication during your procedure to help lesson anxiety and keep you comfortable and which affects judgement and reaction time. We recommend that you do not drive, operate equipment, sign any important documents, or smoke unattended for 24 hours following your procedure. Because of the sedation please be careful on stairs, as you may be unsteady on your feet. You may resume your regular diet as tolerated. IV site -- slight redness, or tenderness is normal, you can use a warm compress. If tenderness and redness increases or foul drainage occurs, please contact your M. D. Revised 08/08/15 documented in this encounter Medications at Time of Discharge Medication Sig Dispensed Refills Start Date End Date gabapentin (NEURONTIN) 100 mg Capsule Take 300 mg by mouth 3 times daily. 0 12/17/2016 clopidogrel (PLAVIX) 75 mg Tablet Take 1 tablet by mouth daily. 90 tablet 12/31/2016 01/07/2017 ibuprofen (ADVIL;MOTRIN) 600 mg Tablet Take 600 mg by mouth as needed. Reported on 01/07/2017 0 2016 01/07/2017 documented as of this encounter Progress Notes * Linnette Horton - 12/28/2016 3:40 PM EDT ANGIO NURSING DATABASE Name: TAURUS BURGOS Date of : 1965 AGE 51 y.o. Address: [address] [address] (home) Mobile: No relevant phone numbers on file. Referring Provider: Christiane Estrada REASON FOR VISIT: Question Answer Comment Where will study be performed? [facility] Radiology Laterality Right Reason for exam and clinical history: R LE ??AV fistula and pseudoanenurysms Exam/Procedure requested: R LE a-gram possible coiling and possible stent graft Is the patient on anticoagulant / anitplatelet therapy ? No Anticoagulant/antiplatelet/herbal med. stopped on per MD order. Allergies Allergen Reactions ??? Codeine Phosphate Hives ??? Penicillins GI Upset ??? Bupropion Nightmares ??? Hydrocodone-Acetaminophen Nausea And Vomiting Pertinent PMH: Patient Active Problem List Diagnosis Code ??? Chronic back pain M54.9, G89.29 ??? 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 Right sural neuritis G57.80 ??? Pain of right lower leg M79.661 ??? Pseudoaneurysm, right lower extremity I72.9 ??? Arteriovenous fistula, right lower extremity I77.0 Pertinent PSH: No past surgical history on file. Date/Procedure Med's given/comments 12/31/2016 RLE A-gram with intervention Fentanyl 500 mcg Versed 6 mg To procedure room 1 via stretcher. Onto table supine All monitors, O2, safety strap in place. Med'sper protocol. Angio only post procedure: Time sheath removed: 1122 Side: Left Closure device used: mynx Hematoma present? yes Site release time: 1145 Anticipated up time: 1345 Laboratory Results: Medications: Prior to Admission medications Medication Sig Start Date End Date Taking? Authorizing Provider gabapentin (NEURONTIN) 100 mg Capsule Take 100 mg by mouth daily. 12/17/16 PROVIDER, HISTORICAL ibuprofen (ADVIL;MOTRIN) 600 mg Tablet Take 600 mg by mouth as needed. 09/30/16 PROVIDER, HISTORICAL oxyCODONE (ROXICODONE) 5 mg Tablet Take 5 mg by mouth every 4 hours as needed. 10/01/16 PROVIDER, HISTORICAL predniSONE (DELTASONE) 10 mg Tablet Take 10 mg by mouth daily. PROVIDER, HISTORICAL documented in this encounter H&P Notes * Noam Can MD - 12/31/2016 9:27 AM EDT Vascular Surgery Angiography Note 51M recently seen in clinic by Dr. Estrada who noted: Taurus Burgos presents to the Vascular Clinic in consultation from Jian Michael MD and Mr Burgos's PCP, Faye Echavarria MD, with regard to [...] comes and goes, though itcan be severe). There have been no interval changes to his health or symptoms in the interim. He specifically denies chest pain and shortness of breath today. He does smoke. Vascular History No previous vascular surgeries Review of Systems A full review encompassing at least 10 organ systems including general, neuro, pulm, cardiac, GI, , MSK, Endo, and psych was negative other than that listed in the HPI Medical History Past Medical History: Diagnosis Date ??? Arteriovenous fistula, right lower extremity 12/22/2016 ??? Pain of right lower leg 12/22/2016 ??? Pseudoaneurysm, right lower extremity 12/22/2016 Surgical History R heel operation for injury Social History Social History Social History ??? Marital status: [...] Not on file Social History Narrative Family History No family history on file. Medications Current Outpatient Prescriptions on File Prior to Encounter Medication Sig Dispense Refill ??? gabapentin (NEURONTIN) 100 mg Capsule Take 100 mg by mouth daily. 0 ??? ibuprofen (ADVIL;MOTRIN) 600 mg Tablet Take 600 mg by mouth as needed. 0 No current facility-administered medications on file prior to encounter. Allergies Codeine phosphate; Penicillins; Bupropion; and Hydrocodone-acetaminophen Physical Exam Temp: [36.6 ??C (97.9 ??F)] Heart Rate: [86] Resp: [16] BP: (158)/(81) SpO2: [97 %] Heart Rate from SPO2: -- General: alert, cooperative, no acute distress HEENT: normocephalic, atraumatic Neck: trachea midline CVS: regular rate and rhythm Pulm: non-labored breathing Abd: soft, non tender, non distended Ext: Femoral/DP/PT pulses palpable bilaterally. Palpable thrill in the R calf Neuro: no focal deficits, moving all extremities. Labs sCr 0.7 Imaging CTA IMPRESSION 1. Arterio-venous fistula in the upper [...] originate from a small venous branch. 2. Incidental 43 mm well-circumscribed mass in the subcutaneous fat of the right abdomen. This is not consistent with a simple cyst as it is slightly high density, however could be a sebaceous cyst. Clinical correlation is needed. 3. Post traumatic changes in the distal right fibula and calcaneus. 4. Heterogeneous bone marrow in the distal right femoral metaphysis is of uncertain significance. If there is right knee pain recommend radiographs for further evaluation. Studies Duplex Findings: Right ? PSV (cm/s) ??EDV ?? [...] waveforms. The popliteal vein is patient, with pulsatile/fistulized [...] to be the peroneal artery and vein. 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 This could be traumatic vs congenital. It has been well imaged as noted above with CTA and duplex ultrasound. We will plan RLE arteriogram with possible intervention of the AVM/AVF including possible coil embolization. We will start with L retrograde femoral access but may also have to access the R side antegrade. ASA II Mal II sCr 0.7 Noam Can MD Surgery PGY-2 12/31/2016 9:05 AM documented in this encounter Procedure Notes * Christiane Estrada MD - 12/31/2016 2:46 PM EDT Vascular Surgery Interventional Procedure Note Date of procedure: 12/31/2016 Pre-Procedure Diagnosis: R calf arteriovenous malformation vs AV fistula vs pseudoaneurysm Post-Procedure Diagnosis: R calf pseudoaneurysm with AV fistula Procedure: Coil embolization of right tibial-peroneal trunk arterial pseudoaneurysm; Repair of chronic AV fistula with right tibial-peroneal trunk stent-graft (Viabahn) Components: 1. Left femoral arterial access with fluoroscopic guidance 2. sixth order selective catheterization of PT artery 3. RLE arteriogram 4. Coil embolization of tibial-peroneal trunk pseudoaneurysm with interlock 3x60mm coil 5. TP trunk stent grafting with viabahn 6x25mm, molded with Linwood 6x20mm balloon to repair/exclude chronic AV fistula 6. Completion arteriogram Surgeon(s): Casie Can Intra-procedural Medications: Versed dose: 6 mg Fentanyl dose: 500 mcg Local anesthetic: 8 cc 1% lidocaine Heparin: Yes 6000 Units Protamine: Yes 20 mg Antibiotics: 2g ancef Fluoro Time: 15.1 min Contrast: 88 mL Sheath Size: 7 Fr Indications for the procedure: 51M with RLE discomfort surrounding R calf AV fistula and associated pseudoaneurysm. He presents for arteriogram and possible embolization and/or stent-graft repair depending on angiographic findings Findings: - RLE angiogram stationed at the below knee segments shows brisk filling of the below knee popliteal, AT, TP trunk, PT, and peroneal arteries. The arterial anatomy in this region appears to be normal, albeit large, especially proximal to the AV fistula. There is brisk filling of the surrounding veins almost simultaneously. There is also a faint outline of the pseudoaneurysm on the initial run as well. Several more runs were also used to delineate the anatomy in conjunction with adjustment of the angiographic catheter to confirm focal AV fistula rather than AVM. Catheterization of the pseudoaneurysm showed a clear fistulization to the PT vein as well, suggesting coiling was preferable in srini tion to arterial stent-graft placement. - Intervention with devices noted above - Completion angiogram demonstrated complete exclusion of the pseudoaneurysm and no filling of the surrounding veins. The arterial anatomy was preserved with the stent-graft lying just above the division of the TP trunk. The AT appears widely patent. - Easily palpable pedal DP and PT pulses at completion, with calf veins immediately less prominent Procedure in detail: The patient was properly identified in the pre-operative holding area. After discussions of the risks and benefits, operative consent was obtained. The patient was brought to the angiography suite and placed on the angio table. The patient was prepped and draped in the usual sterile fashion. A time-out was performed by the attending surgeon confirming the patient, the intended procedure, the sideof intervention and equipment needed. Split doses of fentanyl and versed were administered for conscious sedation by the Interventional Radiology nurse during continuous monitoring of pulse, blood pressure and oxygen saturation. After injection of local anesthetic, percutaneous access was obtained via the Left femoral artery under fluoroscopic guidance using a micro puncture technique. A cope wire was inserted and upsized to a 5 Guyanese sheath over a J-wire. A 5F Omni flush catheter was then advanced into the infrarenal aorta over the wire. This platform was then used to catheterize the R SFA.Wire exchange was performed for amplatz wire and sheath was exchanged for 7Fr destination. Several RLE stationed arteriograms were then performed as noted above. A glidewire and NTA catheter were used to selectively catheterize the PT artery and obtain arteriograms from varying injection points to delineate the anatomy as described above. This platform was then used to selectively catheterize thepseudoaneurysm. A run was used to confirm position which also showed clear fistulization to the PT vein. The renegade catheter was then advanced into postion through the NTA. These were withdrawn to the neck of the pseudoaneurysm. An 018 3x60mm interlock coil was then deployed right at the neck of the pseudoaneurysm. A run then showed persistent but much decreased flow through the pseudoaneurysm.Rapid filling of the venous system was again seen, consistent with the AV fistula. It was felt thatcoverage of the fistula with a stent-graft should complete exclusion of both the pseudoaneurysm andthe AV fistula. The glidewire was then advanced down the peroneal artery. Stationed arteriogram wasperformed and the screen was marked for the AT branch and bifurcation of the TP trunk. A 6x25mm viabahn stent-graft was then deployed right at the TP trunk bifurcation. Stationed arteriogram showed filling of the AT, PT, and peroneal. There was no filling of the surrounding veins or the pseudoaneurysm any longer. The end of the viabahn appeared to be slightly encroach close to the PT origin without impeding flow to the PT artery significantly. We attempted to retract this slightly using a Et[place]ang 6x20mm angioplasty balloon but did not appear to move the stent-graft appreciably. We then performed a completion arteriogram with the findings noted above and palpable PT pulse as noted. Sheath exchange was then performed to 7Fr short sheath over a J-wire and a mynx closure device was deployed. Manual pressure was held and hemostasis was noted. There was a small hematoma but this was non-pulsatile. The puncture site was dressed with a dry sterile dressing. Easily palpable DP/PT pulses were noted in the R foot at case completion. Dr. Estrada was present for the entire procedure. Closure device: Mynx Complications: No Plan: - flat bedrest for 4 hours - start plavix for one month and then transition to aspirin - return to clinic in one month with DOROTHY and stent duplex Noam Can MD 01/02/2017 10:44 AM --- Vascular Surgery Staff I was present and participated throughout the entire procedure and agree/attest to the above note. I was present during the intraservice time as documented by the sedation RN. Christiane Estrada MD documented in this encounter Plan of Treatment Not on file documented as of this encounter Procedures Procedure Name Priority Date/Time Associated Diagnosis Comments HEMOGRAM Routine 12/31/2016 4:10 PM EDT Arteriovenous fistula, right lower extremity HEMOGRAM Routine 12/31/2016 1:15 PM EDT Arteriovenous fistula, right lower extremity VS ARTERIOGRAM LOWER EXTREMITY VASCULAR SURGERY Routine 12/31/2016 11:49 AM EDT Arteriovenous fistula, right lower extremity POCT CREATININE STAT 12/31/2016 8:49 AM EDT documented in this encounter Results * Arterial Duplex Leg, Unil (02/08/2017 11:33 AM EDT) VB Text Report Department: Vascular Surgery Lab Patient: [id number] (TAURUS BURGOS) CPT: 19557 ICD10: I77.0 Referring Physician: CHRISTIANE ESTRADA ?? Indications: s/p right TPT artery stent graft, h/o PSA and AVM, ? change ICD10 Diagnosis Code: I77.0 Findings: Right ?PSV (cm/s) ??EDV ?? Popliteal Artery, Above Knee ? 50 ?0 ?? Popliteal Artery, Mid ?56 ?0 ?? Popliteal Artery, Below Knee ? 65 ?5 ?? Posterior Tibial Artery, Proximal ? 0 ?0 ?? Posterior Tibial Artery, Mid ? 14 ?0 ?? Posterior Tibial Artery, Distal ?29 ?0 ?? Anterior Tibial Artery, Mid ?82 ?0 ?? Anterior Tibial Artery, Proximal ? 83 ?8 ?? Anterior Tibial Artery, Distal ? 78 ?0 ?? Peroneal Artery, Proximal ?61 ?0 ?? Interpretation: RIGHT: Patent mid to distal posterior tibial artery with retrograde flow and no evidence of stenosis. Difficult visualization of the proximal posterior tibial artery and no flow identified. Thrombosed pseudoaneurysm at the proximal calf measuring approximately 1.2 cm x 1.5 cm x 2.3 cm; previously 3.6 cm x 2.9 cm x 2.8 cm. The previously identified arteriovenous fistula was not identified on today's exam. Patent popliteal artery, stented tibioperoneal trunk, anterior tibial artery, and proximal peroneal artery with no evidence of significant stenosis. Overall; significant improvement compared to the previous exam performed on 12/01/2016. Electronically Signed by: CHRISTIANE ESTRADA on 2017-02-08 01:41:35 PM [facility] VB Text Report End of Report [facility] 02/08/2017 11:3 3 AM EDT Christiane Estrada MD VASCULAR ORDERABLES [facility] * DOROTHY, legs, multiple levels (02/08/2017 11:33 AM EDT) VB Text Report Department: Vascular Surgery Lab Patient: [id number] (TAURUS BURGOS) CPT: 89714 ICD10: I77.0 Referring Physician: CHRISTIANE ESTRADA ?? Indications: s/p right TPT artery stent graft, ? baseline DOROTHY Diabetes mellitus: No ICD10 Diagnosis Code: I77.0 Findings: Right ?Pressure (mm Hg) ?? DOROTHY ??Waveform ?? Brachial Artery ?131 ? Common Femoral Artery ?Triphasic ?? Pop Fossa ?Triphasic ?? Dorsalis Pedis (Ankle) Artery ?161 ? 1.20 ??Triphasic ?? Posterior Tibial (Ankle) Artery ??158 ? 1.18 ??Triphasic ?? Left ? Pressure (mm Hg) ?? DOROTHY ??Waveform ?? Brachial Artery ?134 ? Common Femoral Artery ?Triphasic ?? Pop Fossa ?Triphasic ?? Dorsalis Pedis (Ankle) Artery ?159 ? 1.19 ??Triphasic ?? Posterior Tibial (Ankle) Artery ??143 ? 1.07 ??Triphasic ?? Interpretation: RIGHT: No significant lower extremity arterial occlusive disease identifiable at rest. Normal ankle/brachial pressure ratios and ankle Doppler waveforms. LEFT: No significant lower extremity arterial occlusive disease identifiable at rest. Normal ankle/brachial pressure ratios and ankle Doppler waveforms. Comparison: ??No previous study in our vascular lab database for comparison. Electronically Signed by: CHRISTIANE ESTRADA on 2017-02-08 12:56:45 PM [facility] VB Text Report End of Report [facility] 02/08/2017 11:3 3 AM EDT Christiane Estrada MD VASCULAR ORDERABLES [facility] * (ABNORMAL) Hemogram (12/31/2016 4:10 PM EDT) White Blood Cell 11.2(H) 4.0 - 9.5 x10(3)/mc L [facility] Red Blood Cell 3.96(L) 4.58 - 5.54 x10(6)/mc L [facility] Hemoglobin 12.0(L) 13.7 - 16.5 gm/dL [facility] Hematocrit 34.7(L) 40.5 - 48.5 % [facility] Mean Cell Volume 87.6 82.9 - 93.1 fL [facility] Mean Cell Hemoglobin 30.3 27.5 - 32.1 pg [facility] Mean Cell Hemoglobin Concentration 34.6 32.0 - 35.7 gm/dL [facility] Platelet 300 145 - 357 x10(3)/mc L [facility] RDW Standard Deviation 49.1(H) 36.0 - 45.0 fL [facility] RDW coefficient of variation 15.2(H) 11.4 - 13.8 % [facility] Mean Platelet Volume 9.3 7.6 - 12.9 fL [facility] NRBC% auto 0.0 % [facility] NRBC Absolute 0.000 0.000 - 0.000 x10(3)/ L [facility] Blood specimen (specimen) 12/31/2016 4:10 PM EDT 12/31/2016 4:22 PM EDT Narrative Resulting Agency Comment Spec In Lab Christiane Estrada MD HEMATOLOGY ORDERABLE S [facility] [place] [address] * (ABNORMAL) Hemogram (12/31/2016 1:15 PM EDT) White Blood Cell 7.9 4.0 - 9.5 x10(3)/mc L [facility] Red Blood Cell 3.93(L) 4.58 - 5.54 x10(6)/mc L [facility] Hemoglobin 12.0(L) 13.7 - 16.5 gm/dL [facility] Hematocrit 34.8(L) 40.5 - 48.5 % [facility] Mean Cell Volume 88.5 82.9 - 93.1 fL [facility] Mean Cell Hemoglobin 30.5 27.5 - 32.1 pg [facility] Mean Cell Hemoglobin Concentration 34.5 32.0 - 35.7 gm/dL [facility] Platelet 303 145 - 357 x10(3)/mc L [facility] RDW Standard Deviation 49.1(H) 36.0 - 45.0 fL [facility] RDW coefficient of variation 15.3(H) 11.4 - 13.8 % [facility] Mean Platelet Volume 9.6 7.6 - 12.9 fL [facility] NRBC% auto 0.0 % [facility] NRBC Absolute 0.000 0.000 - 0.000 x10(3)/mc L [facility] Blood specimen (specimen) 12/31/2016 1:15 PM EDT 12/31/2016 1:36 PM EDT Narrative Resulting Agency Comment Spec In Lab Christiane Estrada MD HEMATOLOGY ORDERABLE S [facility] [place] [address] * VS Angiogram/intervention (vascular) (12/31/2016 11:49 AM EDT) Anatomical Region Laterality Modality X-Ray Angiograph y Narrative 01/04/2017 9:21 AM EDT Vascular Surgery Interventional Procedure Note Date of procedure: 12/31/2016 Pre-Procedure Diagnosis: R calf arteriovenous malformation vs AV fistula vs pseudoaneurysm Post-Procedure Diagnosis: R calf pseudoaneurysm with AV fistula Procedure: Coil embolization of right tibial-peroneal trunk arterial pseudoaneurysm; Repair of chronic AV fistula with right tibial-peroneal trunk stent-graft (Viabahn) Components: 1. Left femoral ??arterial access with fluoroscopic guidance 2. sixth order selective catheterization of PT artery 3. RLE arteriogram 4. Coil embolization of tibial-peroneal trunk pseudoaneurysm with interlock 3x60mm coil 5. TP trunk stent grafting with viabahn 6x25mm, molded with Linwood 6x20mm balloon to repair/exclude chronic AV fistula 6. Completion arteriogram Surgeon(s): Casie Can Intra-procedural Medications: Versed dose: 6 ??mg Fentanyl dose: 500 mcg Local anesthetic: 8 cc 1% lidocaine Heparin: Yes 6000 Units Protamine: Yes 20 mg Antibiotics: 2g ancef Fluoro Time: 15.1 min Contrast: 88 mL Sheath Size: ??7 Fr Indications for the procedure: 51M with RLE discomfort surrounding R calf AV fistula and associated pseudoaneurysm. He presents for arteriogram and possible embolization and/or stent-graft repair depending on angiographic findings Findings: - RLE angiogram stationed at the below knee segments shows brisk filling of the below knee popliteal, AT, TP trunk, PT, and peroneal arteries. The arterial anatomy in this region appears to be normal, albeit large, especially proximal to the AV fistula. There is brisk filling of the surrounding veins almost simultaneously. There is also a faint outline of the pseudoaneurysm on the initial run as well. Several more runs were also used to delineate the anatomy in conjunction with adjustment of the angiographic catheter to confirm focal AV fistula rather than AVM. Catheterization of the pseudoaneurysm showed a clear fistulization to the PT vein as well, suggesting coiling was preferable in addition to arterial stent-graft placement. - Intervention with devices noted above - Completion angiogram demonstrated complete exclusion of the pseudoaneurysm and no filling of the surrounding veins. The arterial anatomy was preserved with the stent-graft lying just above the division of the TP trunk. The AT appears widely patent. - Easily palpable pedal DP and PT pulses at completion, with calf veins immediately less prominent Procedure in detail: ?The patient was properly identified in the pre-operative holding area. After discussions of the risks and benefits, operative consent was obtained. The patient was brought to the angiography suite and placed on the angio table. The patient was prepped and draped in the usual sterile fashion. A time-out was performed by the attending surgeon confirming the patient, the intended procedure, the side of intervention and equipment needed. Split doses of fentanyl and versed were administered for conscious sedation by the Interventional Radiology nurse ??during continuous monitoring of pulse, blood pressure and oxygen saturation. After injection of local anesthetic, percutaneous access was obtained via the Left femoral ??artery under fluoroscopic guidance using a micro puncture technique. A cope wire was inserted and upsized to a 5 Guyanese sheath over a J-wire. A 5F Omni flush catheter was then advanced into the infrarenal aorta over the wire. This platform was then used to catheterize the R SFA. Wire exchange was performed for amplatz wire and sheath was exchanged for 7Fr destination. Several RLE stationed arteriograms were then performed as noted above. A glidewire and NTA catheter were used to selectively catheterize the PT artery and obtain arteriograms from varying injection points to delineate the anatomy as described above. This platform was then used to selectively catheterize the pseudoaneurysm. A run was used to confirm position which also showed clear fistulization to the PT vein. The renegade catheter was then advanced into postion through the NTA. These were withdrawn to the neck of the pseudoaneurysm. An 018 3x60mm interlock coil was then deployed right at the neck of the pseudoaneurysm. A run then showed persistent but much decreased flow through the pseudoaneurysm. Rapid filling of the venous system was again seen, consistent with the AV fistula. It was felt that coverage of the fistula with a stent-graft should complete exclusion of both the pseudoaneurysm and the AV fistula. The glidewire was then advanced down the peroneal artery. Stationed arteriogram was performed and the screen was marked for the AT branch and bifurcation of the TP trunk. A 6x25mm viabahn stent-graft was then deployed right at the TP trunk bifurcation. Stationed arteriogram showed filling of the AT, PT, and peroneal. There was no filling of the surrounding veins or the pseudoaneurysm any longer. The end of the viabahn appeared to be slightly encroach close to the PT origin without impeding flow to the PT artery significantly. We attempted to retract this slightly using a mustang 6x20mm angioplasty balloon but did not appear to move the stent-graft appreciably. We then performed a completion arteriogram with the findings noted above and palpable PT pulse as noted. Sheath exchange was then performed to 7Fr short sheath over a J-wire and a mynx closure device was deployed. Manual pressure was held and hemostasis was noted. There was a small hematoma but this was non-pulsatile. The puncture site was dressed with a dry sterile dressing. Easily palpable DP/PT pulses were noted in the R foot at case completion. Dr. Estrada was present for the entire procedure. Closure device: Mynx Complications: No Plan: - flat bedrest for 4 hours - start plavix for one month and then transition to aspirin - return to clinic in one month with DOROTHY and stent duplex --- Vascular Surgery Staff I was present and participated throughout the entire procedure and agree/attest to the above note. I was present during the intraservice time as documented by the sedation RN. 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 Left femoral arterial access with fluoroscopic guidance 2. sixth order selective catheterization of PT artery 3. RLE arteriogram 4. Coil embolization of tibial-peroneal trunk pseudoaneurysm withinterlock 3x60mm coil 5. TP trunk stent grafting with viabahn 6x25mm, molded with [id number] balloon to repair/exclude chronic AV fistula 6. Completion arteriogram Surgeon(s): Casie Can Intra-procedural Medications: Versed dose: 6 mg Fentanyl dose: 500 mcg Local anesthetic: 8 cc 1% lidocaine Heparin: Yes 6000 Units Protamine: Yes 20 mg Antibiotics: 2g ancef Fluoro Time: 15.1 min Contrast: 88 mL Sheath Size: 7 Fr Indications for the procedure: 51M with RLE discomfort surrounding R calf AV fistula and associated pseudoaneurysm. He presents for arteriogram and possible embolizationand/or stent-graft repair depending on angiographic findings Findings: - RLE angiogram stationed at the below knee segments shows brisk fillingof the below knee popliteal, AT, TP trunk, PT, and peroneal arteries. Thearterial anatomy in this region appears to be normal, albeit large, especiallyproximal to the AV fistula. There is brisk filling of the surrounding veinsalmost simultaneously. There is also a faint outline of the pseudoaneurysm onthe initial run as well. Several more runs were also used to delineate theanatomy in conjunction with adjustment of the angiographic catheter to confirmfocal AV fistula rather than AVM. Catheterization of the pseudoaneurysm showed aclear fistulization to the PT vein as well, suggesting coiling was preferablein addition to arterial stent-graft placement. - Intervention with devices noted above - Completion angiogram demonstrated complete exclusion of thepseudoaneurysm and no filling of the surrounding veins. The arterial anatomy was preservedwith the stent-graft lying just above the division of the TP trunk. The AT appearswidely patent. - Easily palpable pedal DP and PT pulses at completion, with calf veins immediately less prominent Procedure in detail: The patient was properly identified in thepre-operative holding area. After discussions of the risks and benefits, operativeconsent was obtained. The patient was brought to the angiography suite and placed onthe angio table. The patient was prepped and draped in the usual sterilefashion. A time-out was performed by the attending surgeon confirming the patient,the intended procedure, the side of intervention and equipment needed. Splitdoses of fentanyl and versed were administered for conscious sedation by the Interventional Radiology nurse during continuous monitoring of pulse,blood pressure and oxygen saturation. After injection of local anesthetic, percutaneous access was obtained via the Left femoral artery underfluoroscopic guidance using a micro puncture technique. A cope wire was inserted andupsized to a 5 Guyanese sheath over a J-wire. A 5F Omni flush catheter was thenadvanced into the infrarenal aorta over the wire. This platform was then used to catheterize the R SFA. Wire exchange was performed for amplatz wire andsheath was exchanged for 7Fr destination. Several RLE stationed arteriograms werethen performed as noted above. A glidewire and NTA catheter were used toselectively catheterize the PT artery and obtain arteriograms from varying injectionpoints to delineate the anatomy as described above. This platform was then usedto selectively catheterize the pseudoaneurysm. A run was used to confirmposition which also showed clear fistulization to the PT vein. The renegadecatheter was then advanced into postion through the NTA. These were withdrawn to theneck of the pseudoaneurysm. An 018 3x60mm interlock coil was then deployed rightat the neck of the pseudoaneurysm. A run then showed persistent but muchdecreased flow through the pseudoaneurysm. Rapid filling of the venous system was againseen, consistent with the AV fistula. It was felt that coverage of the fistulawith a stent-graft should complete exclusion of both the pseudoaneurysm and theAV fistula. The glidewire was then advanced down the peroneal artery.Stationed arteriogram was performed and the screen was marked for the AT branchand bifurcation of the TP trunk. A 6x25mm viabahn stent-graft was thendeployed right at the TP trunk bifurcation. Stationed arteriogram showed filling ofthe AT, PT, and peroneal. There was no filling of the surrounding veins orthe pseudoaneurysm any longer. The end of the viabahn appeared to beslightly encroach close to the PT origin without impeding flow to the PT artery significantly. We attempted to retract this slightly using a [id number] angioplasty balloon but did not appear to move the stent-graftappreciably. We then performed a completion arteriogram with the findings noted aboveand palpable PT pulse as noted. Sheath exchange was then performed to 7Frshort sheath over a J-wire and a mynx closure device was deployed. Manualpressure was held and hemostasis was noted. There was a small hematoma but this was non-pulsatile. The puncture site was dressed with a dry sterile dressing.Easily palpable DP/PT pulses were noted in the R foot at case completion. was present for the entire procedure. Closure device: Mynx Complications: No Plan: - flat bedrest for 4 hours - start plavix for one month and then transition to aspirin - return to clinic in one month with DOROTHY and stent duplex --- Vascular Surgery Staff I was present and participated throughout the entire procedure andagree/attest to the above note. I was present during the intraservice time as documented by the sedationRN. Christiane Estrada MD Christiane Estrada MD IMG IR ORDERABLES * (ABNORMAL) POCT Creatinine (12/31/2016 8:49 AM EDT) Creatinine, POC 0.7(A) 0.8 - 1.5 mg/dL POC Estimated GFR >60 60 12/31/2016 8:49 AM EDT Christiane Estrada MD POINT OF CARE TEST O RDERABLES documented in this encounter Visit Diagnoses Diagnosis Arteriovenous fistula, right lower extremity Arteriovenous fistula, acquired documented in this encounter Administered Medications Inactive Administered Medications - up to 3 most recent administrations Medication Order MAR Action Action Date Dose Rate Site ceFAZolin (ANCEF) 2g in dextrose 5% 100 mL 2 g, Intravenous, ONCE, 1 dose, On Tue12/31/16 at 0930, Administer over 30 Minutes, Angio/IR (Day of Procedure), Indication for (Active or Suspected): Prophylaxis Given 12/31/2016 9:26 AM EDT 2 g 200 mL/ hr clopidogrel (PLAVIX) tablet 75 mg 75 mg, Oral, DAILY, First dose on Tue12/31/16 at 1215, Until Discontinued, Routine Given 12/31/2016 3:59 PM EDT 75 mg fentaNYL 50mcg/mL injection 25-50 mcg, Intravenous, EVERY 5 MIN PRN, Starting on Tue12/31/16 at 0911, Until Tue12/31/16 at 1120, Pain, Angio/IR (Intra-Procedure), Routine Given 12/31/2016 11:20 AM EDT 50 mcg Given 12/31/2016 11:10 AM EDT 50 mcg Given 12/31/2016 11:01 AM EDT 50 mcg heparin (porcine) injection 10,000 Units 10,000 Units, Intravenous, ONCE PRN, 1 dose, Starting on Tue12/31/16 at 0911, Until Tue12/31/16 at 1013, for angio, Angio/IR (Intra-Procedure), Routine Given 12/31/2016 10:13 AM EDT 6,000 U nits iodixanol (VISIPAQUE) 320 mg iodine/mL injection 150 mL 150 mL, Intra-arterial, ONCE PRN, 1 dose, Starting on Tue12/31/16 at 1145, Until Tue12/31/16 at 1145, Per Protocol, Routine Given 12/31/2016 11:45 AM EDT 88 mLs midazolam (PF) (VERSED) 1 mg/mL injection 0.5-1 mg 0.5-1 mg, Intravenous, EVERY 5 MIN PRN, Starting on Tue12/31/16 at 0911, Until Tue12/31/16 at 1120, Sleep, Angio/IR (Intra-Procedure), Routine Given 12/31/2016 10:45 AM EDT 1 mg Given 12/31/2016 10:07 AM EDT 1 mg Given 12/31/2016 9:53 AM EDT 1 mg nitroGLYcerin 100 mcg/mL intracoronary dilution 100 mcg 100 mcg, Intra-arterial, ONCE, 1 dose, On Tue12/31/16 at 1145, Angio/IR (Intra-Procedure), Add-On Given 12/31/2016 11:17 AM EDT 100 mcg protamine injection 20-40 mg 20-40 mg, Intravenous, ONCE PRN, 1 dose, Starting on Tue12/31/16 at 0911, Until Tue12/31/16 at 1120, heparin reversal, Angio/IR (Intra-Procedure), Routine Given 12/31/2016 11:20 AM EDT 20 mg documented in this encounter Care Teams Student Specialist Relationship Specialty Start Date End Date Faye Echavarria MD [address] [place] [address] PCP - General Family Medicine 12/22/16 documented as of this encounter
--- OUTSIDE RECORDS SUMMARY | 2024-03-07 01:25 | XMS_ITS | Encounter Summary ---
Author Organization [facility] [place] [address] Care Team Providers Care Diesel Tractor Engine Mechanic Name Role Phone Faye Echavarria MD Primary Care Provider [phone] Reason for Referral * Diagnostic Test (Routine) - Closed Specialty Diagnoses / Procedures Referred By Evelina gruber Referred To Contact Radiology Diagnoses Arteriovenous fistula Procedures VS Angiogram/intervention (vascular) [facility] V[facility] Surg [address] [place] [address] [facility] [place] [address] Referral ID Status Reason Start Date Expiration Date V isits Requested Visits Authorized [id number] Closed Specialty Service Requested 12/22/2016 12/22/2017 1 1 Encounter Details Date Type Department Care Team (Late st Contact Info) Description 12/22/2016 Orders [place] [address] Jannette Pizano RN Arteriovenous fistula, right lower extremity Social History [...] documented as of this encounter Results * VS Angiogram/intervention (vascular) (12/31/2016 11:49 AM [...] stent grafting with viabahn 6x25mm, molded with Swink 6x20mm balloon to repair/exclude chronic AV fistula [...] was inserted and upsized to a 5 [place]orese sheath over a J-wire. A 5F Omni [...] the R foot at case completion. Dr. Arellano was present for the entire procedure. Closure [...] time as documented by the sedation RN. Brock Arellano MD Procedure Note Brock Arellano MD - 01/04/2017 Vascular Surgery Interventional Procedure [...] stent grafting with viabahn 6x25mm, molded with [id number] balloon to repair/exclude chronic AV fistula 6. [...] wire was inserted andupsized to a 5 [place]orese sheath over a J-wire. A 5F Omni [...] attempted to retract this slightly using a [id number] angioplasty balloon but did not appear to [...] intraservice time as documented by the sedationRN. Brock Arellano MD Brock Arellano MD IMG IR ORDERABLES documented in this encounter Visit Diagnoses Diagnosis Arteriovenous fistula, right lower extremity Arteriovenous fistula, acquired Arteriovenous fistula, right lower extremity Arteriovenous fistula, acquired documented in this encounter Care Teams Diesel Tractor Engine Mechanic Relationship Specialty Start Date End Date Faye Echavarria MD [address] [place] [address] PCP - General Family Medicine 12/22/16 documented as of this encounter
--- OUTSIDE RECORDS SUMMARY | 2024-03-07 01:25 | XMS_ITS | Encounter Summary ---
[place] [address] Care Team Providers Care Advertising Editor Name Role Phone Dionne Crawley MD Primary Care Provider [phone] Encounter Details Date Type Department Care Team (Late st Contact Info) Description 05/23/2012 Abstract [place] [address] Cassidy Coburn, DIVIDING MACHINE OPERATOR HELPER Social History Tobacco Use Types Packs/Day Years Used Date Smoking Tobacco: Never Assessed Sex and Gender Information Value Date Recorded Sex Assigned at Not on file Gender Identity Not on file Sexual Orientation Not on file documented as of this encounter Plan of Treatment Not on file documented as of this encounter Visit Diagnoses Not on filedocumented in this encounter Care Teams Advertising Editor Relationship Specialty Start Date End Date Dionne Crawley MD [address] [place] [address] PCP - General 06/16/10 11/30/16 documented as of this encounter
--- OUTSIDE RECORDS SUMMARY | 2024-03-07 01:25 | XMS_ITS | Encounter Summary ---
Author Organization [facility] [place] [address] Care Team Providers Care Manager Technology Name Role Phone Dionne Crawley MD Primary Care Provider [phone] Reason for Visit * Reason Comments Back Pain Encounter Details Date Type Department Care Team (Late st Contact Info) Description 11/10/2012 9:30 AM EDT Office [place] [id number] Justine Bay, PT [facility] Dionne Crawley MD [address] [address] Chronic back pain (Primary Dx) Discharge Disposition: [...] Progress Notes * Justine Bay, PT - 11/10/2012 12:46 PM EDT [facility] Physical Therapy Note Referring provider: Alonzo Wu M.D. 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 Meraz reports he did the exercises as prescribed but has noticed no difference in his pain intensity. Upon further questioning it is clear he has not been doing the exercises as prescribed. He states that I need surgery on my back since the pain is not improving. Mr. Meraz currently complains of low back pain, right greater than left. Pain is rated 7/10 at its worst and 10/10 at its least. He denies numbness, tingling, and weakness. Symptoms worsen with bending, sitting, walking, lifting, and when lying on the right side. Symptoms ease when lying in the supine position or standing. Sleep is significantly disturbed due to his painful right foot and low back. Objective: Mr. Meraz returns today for a scheduled follow up appointment. He moves about in the exam room with slow and guarded movements and appears quite uncomfortable while seated. Sitting posture is poor and standing posture is good. Active range of motion of the lumbar spine is limited to 30?? flexion and 10?? extension. Endrange flexion and extension worsens the pain. Slouched sitting worsens the pain while sitting fully erect lessens the pain. Repeated movement testing of the lumbar spine did not seem to suggest a directional preference today. Treatment Received: Discussed the natural history of chronic low back pain and the rational for exercise based treatment. Patient Education/ Home Exercise Program: Reviewed and modified Mr. Meraz 's home exercise program. The home exercise program now includes extension in lying, flexion in lying, trunk rotation in supine, and hamstring stretching in the morning and at bedtime. Assessment: Mr. Meraz's symptoms remain unchanged he continued to interfere with his ability to function. He was asked to do the exercises as prescribed and then we will reassess the situation when returning to the [facility] for followup appointment. Goals: 1. Independent with home exercise program 2. Able to stand without discomfort 3. Able to walk without discomfort Plan: Follow up in 2 weeks to reassess and progress the home exercise program. Mr. Meraz was encouraged to call with any questions or concerns regarding todays visit or the home exercise program. Length of visit: A total of 25 minutes was spent re-assessing, treating, and instructing Taurus Meraz in a home exercise program. documented in this encounter Plan of Treatment Not on file documented as of this encounter Visit Diagnoses Diagnosis Chronic back pain- Primary Backache, unspecified documented in this encounter Care Teams Manager Technology Relationship Specialty Start Date End Date Dionne Crawley MD [address] [place] [address] PCP - General 06/16/10 11/30/16 documented as of this encounter
--- OUTSIDE RECORDS SUMMARY | 2024-03-07 01:25 | XMS_ITS | Encounter Summary ---
Author Organization [facility] Address [facility] [place] [address] Care Team Providers Care Founder President And Ceo Name Role Phone Faye Echavarria MD Primary Care Provider [phone] Encounter Details Date Type Department Care Team (Late st Contact Info) Description 01/03/2017 Notes [place] [address] Lary Stewart, PLC TECHNICIAN [facility] [place] [address] Social History Tobacco Use Types Packs/Day Years [...] as of this encounter Progress Notes * Lary Stewart, RN - 01/03/2017 2:03 PM EDT Pt called today to ask for pain medication s/t his groin access site causing him pain. Pt reports bruising ???nursing home down to my knee?? and increased pain at the access site. Pt denies redness, drainage or swelling. When asked, he reports he has been talking nothing currently for pain but when I encouraged him to try Tylenol or Ibuprofen he reports that they don???t work. I expressed that we don? ??t typically prescribe heavier medications for percutaneous access to which he asked that I ???just have the doctor call me.?? I have forwarded a note to Drs. Arellano and Juan José. Side note, he presented to [facility] Tuesday for a rash which they attributed to Plavixand subsequently discontinued. documented in this encounter Plan of Treatment Not on file documented as of this encounter Visit Diagnoses Not on filedocumented in this encounter Care Teams Founder President And Ceo Relationship Specialty Start Date End Date Faye Echavarria MD [address] [place] [address] PCP - General Family Medicine 12/22/16 documented as of this encounter
--- OUTSIDE RECORDS SUMMARY | 2024-03-07 01:25 | XMS_ITS | Encounter Summary ---
Author Organization [facility] [place] [address] Care Team Providers Care Rehab Director Occupational Therapist Name Role Phone Dionne Crawley MD Primary Care Provider [phone] Encounter Details Date Type Department Care Team (Late st Contact Info) Description 12/01/2011 Orders [place] [address] Alonzo Wu MD [facility] [place] [address] Social History Tobacco Use Types Packs/Day Years [...] Associated Diagnosis Comments FILM LIBRARY STORAGE ONLY DX SPINE Routine 12/01/2011 9:03 AM EDT documented in this encounter Results * FILM LIBRARY- STORAGE ONLY DX SPINE (12/01/2011 9:03 AM EDT) Anatomical Region Laterality Modality Other 12/01/2011 9:03 AM EDT Narrative 09/11/2013 6:46 PM EST This is a non-reportable exam. Procedure Note Edy Sherman - 09/11/2013 This is a non-reportable exam. Alonzo Wu MD IMG FILM LIBRARY ORD ERABLES documented in this encounter Visit Diagnoses Not on filedocumented in this encounter Care Teams Rehab Director Occupational Therapist Relationship Specialty Start Date End Date Dionne Crawley MD [address] [place] [address] PCP - General 06/16/10 11/30/16 documented as of this encounter
--- OUTSIDE RECORDS SUMMARY | 2024-03-07 01:25 | XMS_ITS | Encounter Summary ---
Author Organization [facility] Address [facility] [place] [address] Care Team Providers Care Protective Service Specialist Name Role Phone Unavailable Primary Care Provider Unavailabl e Encounter Details Date Type Department Care Team (Late st Contact Info) Description 05/13/2010 11:30 AM EDT [place] [address] Regina Valentino PA [facility] [address] [place] [address] Social History Tobacco Use Types Packs/Day Years [...]
--- OUTSIDE RECORDS SUMMARY | 2024-03-07 01:25 | XMS_ITS | Encounter Summary ---
Author Organization [facility] Address [facility] [place] [address] Care Team Providers Care Manager Payroll Name Role Phone Faye Echavarria MD Primary Care Provider [phone] Reason for Visit * Reason Comments Aneurysm pt here for f/u cta Aorta pt continues to have leg pain and bacj issues Encounter Details Date Type Department Care Team (Late st Contact Info) Description 12/22/2016 9:00 AM EDT Office [place] [address] Brock Arellano MD [facility] [place] [address] Pseudoaneurysm, right lower extremity; Arteriovenous fistula, right lower extremity Social History [...] Sign Reading Time Taken Comments Blood Pressure 140/83 12/22/2016 8:44 AM EDT Pulse - - Temperature - - Respiratory Rate 18 12/22/2016 8:44 AM EDT Oxygen Saturation - - Inhaled Oxygen Concentration - - Weight 65.8 kg (145 lb) 12/22/2016 8:44 AM EDT Height 162.6 cm (5' 4) 12/22/2016 8:44 AM EDT Body Mass Index 24.89 12/22/2016 8:44 AM EDT documented in this encounter Patient Instructions * Patient Instructions* Brock Arellano MD - 12/22/2016 9:00 AM EDT We will schedule a return visit with imaging (angiogram, possible pseudoaneurysm repair) in the near future and send a letter for the appointment. Continue follow up with your PCP, Faye Echavarria MD, for regular medical care and risk factor management. Call if any questions. documented in this encounter Progress Notes * Borck Arellano MD - 12/22/2016 9:00 AM EDT Taurus Meraz returns to the Vascular [facility] with regard to RLE pain, swelling and numbness as described in his referral note in scan docs and in my last note. I will not reiterate all of that here, with no interim change other than his other notable problem, right low back pain, was much worse this past weekend. He is here today for CTA as per my last note. Also notable is that despite his med list, he apparently has not been taking any of the listed meds for over a week. Patient Active Problem List Diagnosis ??? Pain of right lower leg ??? Pseudoaneurysm, right lower extremity ??? Arteriovenous fistula, right lower extremity ??? Chronic back pain ??? Right subtalar [...] file Social History Narrative Family History: Noncontributory. Current Outpatient Prescriptions Ordered in [facility] Medication Sig Dispense Refill ??? gabapentin (NEURONTIN) 100 mg Capsule Take 100 mg by mouth daily. 0 ??? ibuprofen (ADVIL;MOTRIN) 600 mg Tablet Take 600 mg by mouth as needed. 0 ??? oxyCODONE (ROXICODONE) 5 mg Tablet Take 5 mg by mouth every 4 hours as needed. 0 ??? predniSONE (DELTASONE) 10 mg Tablet Take 10 mg by mouth daily. No current Epic-ordered facility-administered medications on file. Allergies: Allergies Allergen Reactions ??? Codeine Phosphate Hives ??? Penicillins GI Upset ??? Bupropion Nightmares ??? Hydrocodone-Acetaminophen Nausea And Vomiting On physical exam, the patient is alert, pleasant and conversant, and in no apparent physical or mental distress. Blood pressure 140/83, resp. rate 18, height 162.6 cm (5' 4), weight 65.8 kg (145 lb). There are no carotid bruits. Lung thompson are clear bilaterally. Cardiac exam reveals a regular rate and rhythm with no remarkable murmurs. Abdominal exam reveals no bruits, tenderness, or masses. Femoral pulses are palpable bilaterally. There are no apparent popliteal aneurysms. Pedal pulses are palpable on the left but not readily palpable in the right lower extremity. There is an audible bruitin the left medial calf, and with deep palpation there is a palpable thrill and a faintly pulsatilemass. There is a healing wound over this site. Veins are quite prominent on the right calf, but notthe left. Both feet are relatively warm and without evidence of emboli, significant edema, or tissue-threatening ischemia. Neurologic exam is focally intact. CTA today. IMPRESSION 1. Arterio-venous fistula in the upper [...] knee pain recommend radiographs for further evaluation. 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 This is similar to the Duplex findings (see below). Duplex RLE last visit: Findings: Right ? PSV (cm/s) ??EDV ?? [...] or malformation with pseudoaneurysm seen on Duplex and CTA. It is unclear if this is a congenital AVM or a traumatic or spontaneous AV fistula, but my suspicion is that this is related to his RLE trauma in 2012, as it would be odd for congenital AVF to present at his age. We discussed options to treat the pseudoaneurysm and AVF - open or endovascular. He understands an endovascular tx might not be possible, but I think it has a >50% chance, and would typically have a much shorter recovery time. He strongly prefers the less invasive option. I told him the back problems are almost certainly separate, and nobody is likely to address his back until we have settled the RLE issue. He understands and agrees. We will schedule RLE a ngiography with possible coil embolization and stent-graft placement. Over 14 minutes of this 19 minute visit were spent in face-face counseling about the aforementioned issues. Brock Arellano MD Vascular Surgery documented in this encounter Plan of Treatment Not on file documented as of this encounter Visit Diagnoses Diagnosis Pseudoaneurysm, right lower extremity Aneurysm of unspecified site Arteriovenous fistula, right lower extremity Arteriovenous fistula, acquired documented in this encounter Care Teams Manager Payroll Relationship Specialty Start Date End Date Faye Echavarria MD [address] [place] [address] PCP - General Family Medicine 12/22/16 documented as of this encounter
--- OUTSIDE RECORDS SUMMARY | 2024-03-07 01:25 | XMS_ITS | Encounter Summary ---
Author Organization [facility] Address [facility] [place] [address] Care Team Providers Care Corporate Associate Attorney Name Role Phone Faye Echavarria MD Primary Care Provider [phone] Encounter Details Date Type Department Care Team (Latest Contact Info) Description 02/08/2017 11:11 AM EDT - 02/08/2017 11:59 PM EDT Hospital Encounter [place] [id number] [place] Arteriovenous fistula, right lower extremity Discharge Disposition: [...] Diagnosis Comments ARTERIAL DUPLEX LEG UNILA Routine 02/08/2017 11:33 AM EDT Arteriovenous fistula, right lower extremity DOROTHY, LEGS, MULTIPLE LEVELS Routine 02/08/2017 11:33 AM EDT Arteriovenous fistula, right lower extremity documented in this encounter Results * Arterial Duplex Leg, Unil (02/08/2017 11:33 AM EDT) VB Text Report Department: Vascular Surgery Lab Patient: [id number] (TAURUS BURGOS) CPT: 76257 ICD10: I77.0 Referring Physician: CHRISTIANE ESTRADA ?? [...] Text Report Department: Vascular Surgery Lab Patient: [id number] (TAURUS BURGOS) CPT: 39992 ICD10: I77.0 Referring Physician: CHRISTIANE ESTRADA ?? [...] acquired documented in this encounter Care Teams Corporate Associate Attorney Relationship Specialty Start Date End Date Faye Echavarria MD [address] [place] [address] PCP - General Family Medicine 12/22/16 documented as of this encounter
== END 2024-03-07 01:40 ==
LOC: DI 01:20
PROVIDERS: PCP Family Medicine; Visit Provider Family Medicine
DX: R91.8 Other nonspecific abnormal finding of lung field (principal)
CPT/HCPCS: 71250

== ENCOUNTER 2024-09-12 13:22 | Outpatient (REF) | payer MEDICARE, MEDICAID, SELFPAY ==
[2024-09-12 17:16] LABS: ALT 31 U/L (16-63); AST 40 U/L (15-37); Alkaline Phosphatase 93 U/L (46-116); Anion Gap 8.4 mmol/L (3-11); BUN 5 mg/dL (7-18); Bilirubin, Total 0.52 mg/dL (0.2-1.0); CO2 25.6 mmol/L (21.0-32.0); CREATININE 0.7 mg/dL (0.70-1.30); Calcium 9.1 mg/dL (8.5-10.1); Chloride 88 mmol/L (98-107); Estimated GFR 106.14 (mL/min/1.73m2); Folate 15.4 ng/mL (8.6-20.0); Glucose 84 mg/dL (74-106); Total Protein 7.7 g/dL (6.4-8.2); Vitamin B12 661 pg/mL (193-986)
[2024-09-12 17:28] LABS: Sodium 122 mmol/L (136-145)
== END 2024-09-12 13:23 | disposition home or self-care (01) ==
LOC: NCHCN 13:22
PROVIDERS: PCP Family Medicine; Visit Provider Family Medicine
DX: R41.3 Other amnesia (principal)
CPT/HCPCS: 80053; 82607; 82746

== ENCOUNTER 2024-09-17 11:28 | Outpatient (REF) | payer MEDICARE, MEDICAID, SELFPAY ==
[2024-09-17 15:23] LABS: Anion Gap 5.2 mmol/L (3-11); BUN 7 mg/dL (7-18); CO2 25.8 mmol/L (21.0-32.0); CREATININE 0.8 mg/dL (0.70-1.30); Calcium 8.7 mg/dL (8.5-10.1); Chloride 97 mmol/L (98-107); Estimated GFR 101.95 (mL/min/1.73m2); Glucose 95 mg/dL (74-106); Potassium 4.5 mmol/L (3.5-5.1); Sodium 128 mmol/L (136-145)
== END 2024-09-17 11:29 | disposition home or self-care (01) ==
LOC: NCHCN 11:28
PROVIDERS: PCP Family Medicine; Visit Provider Family Medicine
DX: E87.1 Hypo-osmolality and hyponatremia (principal)
CPT/HCPCS: 80048

== ENCOUNTER 2024-09-24 13:17 | Outpatient (REF) | payer MEDICARE, MEDICAID, SELFPAY ==
[2024-09-24 21:00] LABS: Anion Gap 8.5 mmol/L (3-11); BUN 5 mg/dL (7-18); CO2 25.5 mmol/L (21.0-32.0); CREATININE 0.7 mg/dL (0.70-1.30); Calcium 8.3 mg/dL (8.5-10.1); Chloride 97 mmol/L (98-107); Estimated GFR 106.14 (mL/min/1.73m2); Glucose 93 mg/dL (74-106); Potassium 4.5 mmol/L (3.5-5.1); Sodium 131 mmol/L (136-145)
== END 2024-09-24 13:18 | disposition home or self-care (01) ==
LOC: NCHCN 13:17
PROVIDERS: PCP Family Medicine; Visit Provider Family Medicine
DX: E87.1 Hypo-osmolality and hyponatremia (principal)
CPT/HCPCS: 80048

== ENCOUNTER 2024-09-26 01:14 | Outpatient (CLI) | payer MEDICARE, MEDICAID, SELFPAY ==
--- NOTE | 2024-09-26 | DI.CT_ITS ---
Exam(s) CT CHEST W EXAM: CT CHEST W CLINICAL HISTORY: Chronic cough, R05.3 TECHNIQUE: Imaging Protocol: Axial computed tomography images with coronal and sagittal reformatted images were created and reviewed. Computer aided detection (CAD) was utilized. CONTRAST MATERIAL: Intravenous: Omnipaque 350 Contrast volume:70 ml. COMPARISON: CT CT CHEST WO from 03/07/2024 FINDINGS: Pulmonary parenchyma: No consolidation. No dominant measurable mass. [id number] emphysematous changes, greater in the upper lobes. Mildly increased interstitial changes. Area of scarring in the left upper lobe. Tracheobronchial tree: No bronchiectasis or mucous plugging. Mediastinum and Caroline: No dominant adenopathy or fluid collection. Pleura: No effusion. No pneumothorax. Heart: The heart is not dilated. Mild coronary artery calcifications are seen. Aorta: Thoracic aorta non-dilated. Mild atherosclerotic changes. Pulmonary arteries: No gross evidence of emboli. Upper abdomen: No acute findings. Bones: Degenerative changes in the spine. Soft tissues: Mild bilateral gynecomastia. IMPRESSION: No acute abnormality.[id number] emphysematous changes. Mild chronic interstitial changes. RADIATION DOSE DELIVERED: Total DLP DATA REPOSITORY: All CT scans at this facility are submitted to the National Radiology Data Registry (NRDR) Dose Index Registry (DIR) with the [employer] (A[employer]). RADIATION OPTIMIZATION: All CT scans at this facility use at least one of these dose optimization te chniques: automated exposure control; mA and/or kV adjustment per patient size (includes targeted exa ms where dose is matched to clinical indication); or iterative reconstruction.
--- NOTE | 2024-09-26 | DI.MRI_ITS ---
Exam(s) MR BRAIN WO EXAM: MR BRAIN WO CLINICAL HISTORY: Other amnesia, R41.3 TECHNIQUE: Multiplanar multisequence MRI of the brain was performed. COMPARISON: None FINDINGS: VENTRICLES AND EXTRA AXIAL SPACES: Normal in size and morphology for the patient's age. MIDLINE SHIFT: None. CEREBRAL PARENCHYMA: No focus of restricted diffusion to suggest acute infarct. No space-occupying le varun identified. Moderate atrophy, somewhat disproportionate to the patient's age. Mild scattered fo ci of high signal in the white matter consistent with sequela of chronic microvascular disease. BRAINSTEM/CEREBELLUM: Normal. VISUALIZED PARANASAL SINUSES: Clear. MASTOIDS:Clear. Vasculature: Normal flow void. PITUITARY GLAND: Unremarkable. ORBITS: Unremarkable. IMPRESSION: Moderate atrophy, disc portion into the patient's age. Mild scattered high signal foci in the white matter consistent with sequela of microvascular disease. DATA REPOSITORY:
[2024-09-26] MEDS: Omnipaque 350 MG/ML 500 ML BTL-Imaging package IJ (14:57)
[2024-09-26] MEDS: Normal Saline - Diluent 50 ML VIAL IJ (14:58)
== END 2024-09-26 01:34 ==
LOC: DI 01:14
PROVIDERS: PCP Family Medicine; Visit Provider Family Medicine
DX: R05.3 Chronic cough (principal); I25.85 Chronic coronary microvascular dysfunction
CPT/HCPCS: 70551; 71260

== ENCOUNTER 2024-10-01 15:25 | Outpatient (REF) | payer MEDICARE, MEDICAID, SELFPAY ==
[2024-10-01 15:59] LABS: Anion Gap 7.8 mmol/L (3-11); BUN 5 mg/dL (7-18); CO2 26.2 mmol/L (21.0-32.0); CREATININE 0.8 mg/dL (0.70-1.30); Calcium 8.7 mg/dL (8.5-10.1); Chloride 101 mmol/L (98-107); Estimated GFR 101.32 (mL/min/1.73m2); Glucose 77 mg/dL (74-106); Potassium 4.3 mmol/L (3.5-5.1); Sodium 135 mmol/L (136-145)
== END 2024-10-01 15:26 | disposition home or self-care (01) ==
LOC: NCHCN 15:25
PROVIDERS: PCP Family Medicine; Visit Provider Family Medicine
DX: E87.1 Hypo-osmolality and hyponatremia (principal)
CPT/HCPCS: 80048

== ENCOUNTER 2025-02-18 15:39 | Outpatient (CLI) | payer MEDICARE, MEDICAID, SELFPAY ==
--- NOTE | 2025-02-18 15:15 | DI.RAD_ITS ---
Exam(s) XR SHOULDER RT COMPLETE 2+V EXAM: XR SHOULDER RT COMPLETE 2+V CLINICAL HISTORY: OA R SHOULDER. TECHNIQUE: 2D digital imaging was performed. Two views. COMPARISON: CR XR SHOULDER LT COMPLETE 2+V from 03/21/2023 FINDINGS: Exam is limited by overlying soft tissues. BONES: No acute fracture is present. No bony destructive lesion is seen. JOINTS: No dislocation present. Severe narrowing of the inferior glenohumeral joint space. Mild inferior spurring. Mild spurring at the AC joint and greater tuberosity. SOFT TISSUE: Normal. IMPRESSION: Moderate to severe degenerative changes of the glenohumeral joint. DATA REPOSITORY: RADIATION DOSE DELIVERED:
--- NOTE | 2025-02-18 15:15 | DI.RAD_ITS ---
Exam(s) XR SHOULDER LT COMPLETE 2+V EXAM: XR SHOULDER LT COMPLETE 2+V CLINICAL HISTORY: eval L shoulder pain. TECHNIQUE: 2D digital imaging was performed. Three views. COMPARISON: CR XR SHOULDER RT COMPLETE 2+V from 02/18/2025 FINDINGS: BONES: No acute fracture is present. No bony destructive lesion is seen. Mild spurring at the greater tuberosity. Degenerative cyst in the humeral head. JOINTS: No dislocation present. Narrowing of the inferior glenohumeral joint space and mild inferior spurring. Mild spurring of the AC joint. SOFT TISSUE: Normal. IMPRESSION: Moderate degenerative changes of the glenohumeral joint. DATA REPOSITORY: RADIATION DOSE DELIVERED:
== END 2025-02-18 15:40 | disposition home or self-care (01) ==
LOC: DIORS 15:40
PROVIDERS: PCP Family Medicine; Visit Provider Student in an Organized Health Care Education/Training Program
DX: M75.22 Bicipital tendinitis, left shoulder (principal); M19.011 Primary osteoarthritis, right shoulder
CPT/HCPCS: 99213; 20611; J1010; 73030